=== PATIENT | male | born 1960 | race Caucasian/White ===

== ENCOUNTER 2020-01-31 14:45 | Outpatient (REF) | payer OTHER, SELFPAY ==
--- NOTE | 2020-01-31 14:51 | MR_ITS ---
EXAMINATION: MR CERVICAL SPINE WITHOUT CONTRAST CLINICAL INFORMATION: Cervical radiculopathy. Left upper and mid pain, numbness, and weakness. COMPARISON: Cervical spine radiographs 12/28/2019. TECHNIQUE: MRI of the cervical spine was obtained using routine sequences without contrast. FINDINGS: Alignment is normal. Vertebral heights are preserved. No acute bone marrow signal changes. There is slight loss of intervertebral disc height and T2 signal intensity at multiple levels related to disc degeneration. The cervicomedullary ejection is normal. Limited visualization of the intracranial compartment reveals no abnormal finding. Occipital condyles and lateral C1 masses are intact. There is degenerative arthrosis of the atlantodental joint. C1-C2 facets are unremarkable. At C2-C3 the annular contour is normal. No canal stenosis. No neuroforaminal encroachment. At C3-C4 there is a diffusely bulging disc causing flattening of the ventral thecal sac and buckling of ligamenta flava causing dorsolateral indentation of the thecal sac. Moderate canal stenosis. Uncovertebral joint spurring and facet degenerative change causes moderate bilateral neuroforaminal encroachment. At C4-C5 there is a diffusely bulging disc causing flattening of the ventral thecal sac and buckling of the ligamenta flava causing dorsolateral indentation of the thecal sac. Severe canal stenosis with compression of the cord. Uncovertebral joint spurring and facet degenerative change causes severe left and moderate right neuroforaminal encroachment. At C5-C6 there is a left central disc osteophyte complex superimposed upon a diffusely bulging disc causing indentation of the thecal sac. There is buckling of the ligamenta flava causing dorsolateral indentation of the thecal sac. Severe canal stenosis with asymmetric compression along the left lateral aspect of the cervical cord. Uncovertebral joint spurring and facet degenerative change causes severe left and moderate right neuroforaminal encroachment. At C6-C7 there is a left central disc osteophyte complexes cause indentation of the thecal sac and asymmetric AP flattening along the left lateral aspect of the cervical cord. Moderate canal stenosis. Uncovertebral joint spurring and facet degenerative change causes moderate left and mild right neuroforaminal encroachment. At C7-T1 there is a slightly bulging disc. No canal stenosis. Bilateral facet degenerative change. No substantial neuroforaminal encroachment. Visualized soft tissues of the neck are normal. IMPRESSION: There is advanced multilevel degenerative spondylosis of the cervical spine. Severe canal stenosis with compression of the cervical spinal cord at the levels of C4-C5 and C5-C6. There is also moderate canal stenosis at C3-C4 and C6-C7. There is asymmetric AP flattening of the left lateral aspect of the cervical spinal cord at the level of C6-C7 due to a prominent disc osteophyte complex. There are varying degrees of neuroforaminal encroachment related to uncovertebral joint spurring and facet degenerative change as described above.
== END 2020-01-31 14:46 | disposition home or self-care (01) ==
LOC: HO.MRI 14:45
PROVIDERS: PCP Nurse Practitioner Family; Visit Provider Hospitalist
DX: M54.12 Radiculopathy, cervical region (principal)
CPT/HCPCS: 72141

== ENCOUNTER 2020-04-08 14:00 | Outpatient (REF) | payer OTHER, SELFPAY ==
--- NOTE | 2020-04-09 09:44 | MHC.AU.P13 ---
Adult Audiological Evaluation Date of Visit: 04/08/20 Reason for Appointment: Audiological evaluation due to decreased hearing. Mr. Finch reports increased difficulty hearing, especially in the presence of background noise, i.e. at family gatherings and restaurants. He also notes that his reports that he often doesn't hear and she has to repeat herself. Does patient feel they have a hearing loss?: Yes If Yes, Which Ear?: Both Ears When Was Hearing Difficulty First Noticed?: 1-2 years ago Has hearing been tested previously?: Yes Previous Hearing Test Results: Results not available to be reviewed today. Hearing Handicap Inventory: HHIE SCORE: 18 Based on HHIE score, patient has: Mild to moderate perceived hearing handicap Ear History: History of Ear Wax Buildup: Both Ears History of occupational noise exposure?: Yes: Occupational [employer] for 30 years Medical History: Medical History: High Blood Pressure, Measles Medical History (Other): Three back operations, appendectomy Allergies: Morphine Medication List: Lorazepam .5mg 2x daily PRN, Amlodipine besylate 5mg daily, Trazodone HCI 50 mg x2 at bedtime, Nabumetone 500mg 2x daily, Marijuana 1 candy per day at bedtime, Omeprazole 20 mg 2x daily, Gabapentin 100 mg x2 morning and x2 at night, Prednisone 10mg daily, Duloxetine HCI 60 mg daily, Cyclobenzaprine HCI 10 mg 3x daily, Atorvastatin calcium 10 mg daily, Namenda 5 mg 3x daily, Betamethasone dipropionate .5 mg daily, Guaifenesin AC 100 10mg/5mg every 4 hrs PRN, Triamcinolone Acetonide oil 0.1 daily Otoscopy: Right Ear: Unremarkable Left Ear: Unremarkable Tympanometry: Right Ear: Normal Middle Ear System (Type A) Left Ear: Normal Middle Ear System (Type A) Hearing Evaluation: Transducer(s) Used: Insert Earphones, Bone Conduction Method: Conventional Audiometry Stimuli Used: Pure Tones Right Ear: Description of Hearing: Normal hearing from 250-2000 Hz, sloping to a mild sensorineural hearing loss from 1374-7283 Hz and rising to normal hearing at 8000 Hz. Left Ear: Description of Hearing: Normal hearing from 250-2000 Hz, sloping to a mild sensorineural hearing loss from 0526-7783 Hz and rising to normal hearing from 9907-2145 Hz. Speech Recognition Threshold (SRT): Method Used: Monitored Live Voice Stimuli Used: Spondee Words Right Ear: 10 dBHL Left Ear: 10 dBHL Word Discrimination: Method: Recorded Lists Word Lists Used: NU-6 Right Ear: 100% at 50 dBHL Left Ear: 100% at 50 dBHL QuickSIN: 4 dB SNR Loss, mild SNR loss Presented binaurally at 70 dBHL Recommendations: Recommendations: Audiological re-evaluation if changes are noted. Amplification is not warranted at this time. Recommendations (Other): Recommend hearing re-evaluation in two years, or sooner if changes are noted. Discussed strategies for improved communication. Diagnosis: Primary Diagnosis: H90.3 Bilateral Sensorineural Hearing Loss Services Performed: Services Performed: Comprehensive Audiological Evaluation (CPT 57413) Tympanometry (CPT 79453) Unlisted Otorhinolaryngological Service or Procedure (CPT 38252) Signature: Provider: Anne Marie Meadows, CCC-A
== END 2020-04-08 14:01 | disposition home or self-care (01) ==
LOC: HO.SH 14:00
PROVIDERS: Visit Provider Nurse Practitioner Family
DX: H90.3 Sensorineural hearing loss, bilateral (principal)
CPT/HCPCS: 92557; 92567; 92700

== ENCOUNTER 2020-04-22 12:00 | Outpatient (RCR) | payer OTHER, SELFPAY ==
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
--- NOTE | 2020-04-01 08:13 | MHC.PT.DC ---
[facility] [place] Office [place] Office [place] Office [address] [phone] F: [phone] F: [phone] F: [phone] F: [phone] Physical Therapy Discharge Report Diagnosis: Spinal stenosis, cervical region Date of Surgery: NA Date of Evaluation: 02/15/20 Date of Discharge: 04/01/20 Treatments to Date: 11 Cancellations to Date: 0 No Shows to Date: 0 Discharge Status: Patient Elected to Stop Discharge Summary: 03/28/20- Pt arrived stating he is feeling good today. His pain was down to 4/10 and it was around shoulder and neck region. [place] exercises was withheld today. Cervical mech traction was done today. Post traction he had no pain. Gentle scap strengthening exercises were attempted today. Pt's pain levels over shoulder blade was fluctuating between no pain to 7/10 pain. Pt's shoulder blade appears to be secondary to active trigger point over levator scap. STM was therefore done and he was demonstrated self release technique. All exercises were done within the limits of pain. Attempt US, STM, strengthening first and then mech traction in next session. No adverse response noted to any exercise. Electronically signed by: Yoly Laboy PT DPT Please sign and return to therapist. Thank you for your referral.
--- NOTE | 2020-04-29 16:26 | MHC.PT.DC ---
[facility] [place] Office [place] Office [place] Office [address] Filippo Scherer [address] [phone] F: [phone] F: [phone] F: [phone] F: [phone] Physical Therapy Discharge Report Diagnosis: Spinal stenosis, cervical region Date of Surgery: NA Date of Evaluation: 02/15/20 Date of Discharge: 04/29/20 Treatments to Date: 17 Cancellations to Date: 0 No Shows to Date: 0 Discharge Status: Improved Function Discharge Summary: Pt had about 70% improvement in his symptoms. He continued to have occasional pain along the medial border of scapula however his pain was inconsistent in nature. Several modalities, exercises and STM attempted but pt had no change in symptoms. Pt had plateaued with therapy. Pt therefore d/c from therapy and was advised to attempt accupuncture for the same. Electronically signed by: Goldie Chowdhury DPT Please sign and return to therapist. Thank you for your referral.
== END 2020-04-29 16:30 | disposition other institution (70) ==
LOC: HO.PT 12:00
PROVIDERS: Visit Provider Nurse Practitioner Family
DX: M48.02 Spinal stenosis, cervical region (principal)
CPT/HCPCS: 97012; 97035; 97110; 97112; 97140; 97161

== ENCOUNTER 2020-07-04 09:04 | Outpatient (REF) | payer OTHER, SELFPAY ==
[2020-07-04 09:36] LABS: MANUAL DIFF FLAG NO
[2020-07-04 10:04] LABS: Basophils Absolute Auto 0.1 X10*3/uL (0.0-0.2); Basophils Percent Auto 1.1 % (0-2); Eosinophils Absolute Auto 0.1 X10*3/uL (0.0-0.4); Eosinophils Percent Auto 2.3 % (0-4); Hematocrit 44.2 % (42-52); Imm Gran Abs Auto 0.01 X10*3/uL (0.00-0.03); Imm Gran Pct Auto 0.2 % (0.0-0.4); Lymphocytes Absolute Auto 1.5 X10*3/uL (1.2-4.9); Lymphocytes Percent Auto 31.8 % (20-40); Mean Corpuscular HGB Conc 33.9 g/dl (31.0-36.0); Mean Corpuscular Hemoglobin 29.4 pg (27.0-33.0); Mean Corpuscular Volume 86.5 fL (80-98); Mean Platelet Volume 8.8 fL (9.4-12.4); Monocytes Absolute Auto 0.5 X10*3/uL (0.1-1.2); Monocytes Percent Auto 9.8 % (2-11); Neutrophils Absolute Auto 2.6 X10*3/uL (2.0-8.3); Neutrophils Percent Auto 54.8 % (45-73); Platelet Count 185 X10*3/uL (160-400); Red Blood Count 5.11 X10*6/uL (4.60-5.80); Red Cell Distribution Width 12.1 % (11.0-16.0); White Blood Count 4.7 X10*3/uL (4.8-10.8)
[2020-07-04 11:15] LABS: Folate 9.6 ng/mL (> or = 4.0); Vitamin B12 368 pg/mL (200-900)
[2020-07-04 11:32] LABS: Prostate Specific Antigen Scr 1.58 ng/mL (<0.05-4.0); TSH reflex Free T4 1.63 uIU/mL (0.32-4.0); Vitamin D 25-OH Total 28.3 ng/mL (>30)
[2020-07-04 11:39] LABS: Alanine Aminotransferase 25 U/L (0-40); Albumin Level 4.4 g/dL (3.5-5.0); Alkaline Phosphatase 77 U/L (39-117); Anion Gap 12 (12-20); Aspartate Amino Transferase 27 U/L (5-37); Bilirubin Total 0.8 mg/dL (0.0-1.0); Blood Urea Nitrogen 15 mg/dL (9-16); Calcium 9.1 mg/dL (8.4-10.2); Carbon Dioxide 28 mmol/L (22-29); Chloride 105 mmol/L (96-108); Estimated Glomerular Filt Rate > 60; Glucose Random 104 mg/dL (60-115); Potassium 4.5 mmol/L (3.3-5.1); Sodium 140 mmol/L (135-145)
[2020-07-05 05:32] LABS: Follicle Stimulating Hormone 7.4 mIU/mL (1.6-8.0); Lutenizing Hormone 2.5 mIU/mL (1.6-15.2)
[2020-07-12 10:57] LABS: Testosterone, Free 59.6 pg/mL (35.0-155.0); Testosterone, Total 596 ng/dL (250-1100)
== END 2020-07-04 09:05 | disposition home or self-care (01) ==
LOC: HO.LAB 09:04
PROVIDERS: PCP Nurse Practitioner Family; Visit Provider Nurse Practitioner Family
DX: R53.83 Other fatigue (principal); Z12.5 Encounter for screening for malignant neoplasm of prostate
CPT/HCPCS: 36415; 80053; 82306; 82607; 82746; 83001; 83002; 84153; 84402; 84403; 84443; 85025

== ENCOUNTER 2020-07-04 13:53 | Outpatient (REF) | payer OTHER, SELFPAY ==
--- NOTE | ~2020-07-04 | US_ITS ---
EXAMINATION: US SCROTUM CLINICAL INFORMATION: Pain left testicle. Left testicle enlarged. COMPARISON: None TECHNIQUE: A sonogram of the scrotum was performed assessing jernigan-scale appearance and color Doppler flow. Spectral Doppler analysis of the arterial and venous flow were performed in the testes bilaterally. FINDINGS: RIGHT: Right testicle measures 5.4 x 2.8 x 3.0 cm, volume 23.7 mL. No focal testicular parenchymal lesions are visualized. Spectral Doppler analysis of the arterial and venous flow is normal in the right testis. Right epididymal head is normal in size with small anechoic cyst measuring 0.3 x 0.3 x 0.3 cm. There is a complex mass in the epidural head measuring 0.4 x 0.6 x 0.6 cm, question spermatocele. There is a small right hydrocele. No varicocele is seen. Right epididymal Doppler flow is normal. LEFT: Left testicle measures 6.9 x 2.6 x 2.9 cm, volume 27.2 mL. No focal testicular parenchymal lesions are visualized. Spectral Doppler analysis of the arterial and venous flow is normal in the left testis. Incidentally noted is a small left appendix testis measuring 0.2 x 0.5 x 0.5 cm. Left epididymal head is normal in size. There is a large left hydrocele compressing the left testis as well as right scrotum. No varicocele is seen. Left epididymal Doppler flow is not visualized secondary to large hydrocele. US/US scrotum IMPRESSION: Large left and small right hydrocele. Also visualized is a right epididymal cyst with normal flow. Both testes are normal size with normal flow. Incidental finding of a left appendix testis measuring 0.5 cm. Cystic and solid lesion of the right epididymis most likely a spermatocele.
== END 2020-07-04 13:54 | disposition home or self-care (01) ==
LOC: HO.HMGCX 13:53
PROVIDERS: Visit Provider Nurse Practitioner Family
DX: N50.812 Left testicular pain (principal)
CPT/HCPCS: 76870

== ENCOUNTER → 2020-07-16 09:16 | Outpatient (BNVA) | payer OTHER, SELFPAY | PROVIDERS: PCP Nurse Practitioner Family; Visit Provider Nurse Practitioner ==

== ENCOUNTER → 2020-08-01 09:27 | Outpatient (BNVA) | payer OTHER, SELFPAY | PROVIDERS: PCP Nurse Practitioner Family; Visit Provider Urology ==

== ENCOUNTER 2020-09-02 05:59 | Day surgery (SDC) | payer OTHER, SELFPAY ==
[2020-08-27 10:29] VITALS: BMI 31.3
--- NOTE | 2020-08-29 11:55 | HO.ANESPROP2 ---
Documented by User: Thi Medrano 08/29/20 11:56 HPI - Anesthesia Eval Consult details Narrative: 60yo M for Left Hydrocele Repair PMFSH Active Problems Active Problems: All Active Problems (Updated 08/27/20 @ 10:19 by Mariposa Bermudez) Eczema (Acute) Left testicular pain (Acute) Fatigue (Acute) Screening PSA (prostate specific antigen) (Acute) Irritable bowel syndrome with diarrhea (Acute) Left hydrocele (Acute) Cervical stenosis of spinal canal (Acute) Past Medical History Medical History Cervical stenosis of spinal canal Elevated cholesterol GERD (gastroesophageal reflux disease) HTN (hypertension) Pain of cervicothoracic region of spine Family History Family History Father Anxiety Depression Mother Stroke Asthma Brother Stroke Brother Liver disease Daughter Diabetes mellitus Daughter Diabetes mellitus Son Asthma Surgical History Surgical History History of colonoscopy History of discectomy History of lumbar fusion Hx of appendectomy Social History Social History Household Members: Spouse and Children Alcohol intake: never Smoking Status: Never smoker Advance Directives Information Provided: No Meds Allergies Allergy/AdvReac Type Severity Reaction Status Date / Time levofloxacin [From LEVAQUIN] Allergy Intermediate cramps Verified 09/02/20 06:10 morphine [MORPHINE] Allergy Mild agitation/h Verified 09/02/20 06:10 allucinatio nichelle Home Medications Medication Instructions Recorded Confirmed Last Taken Type amlodipine 5 mg tablet 5 mg PO DAILY 02/05/20 08/27/20 Unknown History atorvastatin 10 mg tablet 10 mg PO DAILY 02/05/20 08/27/20 Unknown History duloxetine 60 mg capsule,delayed 60 mg PO DAILY 02/05/20 08/27/20 Unknown History release gabapentin 300 mg capsule 300 mg PO TID 02/05/20 08/27/20 Unknown History nabumetone 500 mg tablet 500 mg PO BID 02/05/20 08/27/20 Unknown History Exam Exam Date and Time: August 29, 2020 1155 Height,Weight and Vital Signs: Height 6 ft 2 in Weight 110.677 kg Pertinent Lab Results Pertinent Lab Results: Laboratory Tests 07/04/20 07/04/20 09:15 09:15 WBC 4.7 L Hgb 15.0 Hct 44.2 Plt Count 185 Sodium 140 Potassium 4.5 Chloride 105 Carbon Dioxide 28 BUN 15 Creatinine 1.18 Assessment and Plan Assessment Anesthesia Assessment: Chart Reviewed Documented by User: Darline Mcgregor 09/02/20 07:22 ON LICENSE OF [facility] Past Medical History Medical History Cervical stenosis of spinal canal Elevated cholesterol GERD (gastroesophageal reflux disease) HTN (hypertension) Pain of cervicothoracic region of spine Family History Family History Father Anxiety Depression Mother Stroke Asthma Brother Stroke Brother Liver disease Daughter Diabetes mellitus Daughter Diabetes mellitus Son Asthma Surgical History Surgical History History of colonoscopy History of discectomy History of lumbar fusion Hx of appendectomy Social History Social History Household Members: Spouse and Children Alcohol intake: never Smoking Status: Never smoker Advance Directives Information Provided: No Meds Allergies Allergy/AdvReac Type Severity Reaction Status Date / Time levofloxacin [From LEVAQUIN] Allergy Intermediate cramps Verified 09/02/20 06:10 morphine [MORPHINE] Allergy Mild agitation/h Verified 09/02/20 06:10 allucinatio ns Home Medications Medication Instructions Recorded Confirmed Last Taken Type amlodipine 5 mg tablet 5 mg PO DAILY 02/05/20 08/27/20 Unknown History atorvastatin 10 mg tablet 10 mg PO DAILY 02/05/20 08/27/20 Unknown History duloxetine 60 mg capsule,delayed 60 mg PO DAILY 02/05/20 08/27/20 Unknown History release gabapentin 300 mg capsule 300 mg PO TID 02/05/20 08/27/20 Unknown History nabumetone 500 mg tablet 500 mg PO BID 02/05/20 08/27/20 Unknown History Exam Airway Mallampati Class: II TM Dist: >3cm Neck ROM: Full Assessment and Plan Assessment Anesthesia Assessment: Anesthesia Plan Discussed and Chart Reviewed Final Anesthetic Review NPO: Yes ASA Class: II Final Preanesthetic Review: No Changes in Pt Med Stat, Meds/Allgs Chart Reviewed, Consent Obtained/Reviewed and Anes Risks/Benef Reviewed Patient Risk: Low Procedure Risk: Low Assessment/Block/Sedation in SS: Assess/Block/Sedation-SS Anesthetic Plan Anesthetic Plan: GA Disposition: Standard PACU
[2020-09-02] VITALS (9 sets, daily range): BP systolic 100–129; BP diastolic 54–80; PULSE 64–85; RESP 16–18; TEMP 35.6–36.3; O2SAT 95–98
[2020-09-02] MEDS: Lactated Ringers 1,000 ML 100 ML IVCONT (06:34)
--- NOTE | 2020-09-02 07:08 | MHC.SHP ---
Pre-Procedural Eval Section A The patient is an INPATIENT: No Changes since office visit: No Cold of Flu in the past 2 weeks, No New Medical Problems, No Changes in Medication and No Patient answered all questions The History & Physical has been completed within 30 days and I have reviewed it.: Yes Section B Chief Complaint: hydrocele Allergies: Allergies Allergy/AdvReac Type Severity Reaction Status Date / Time levofloxacin [From LEVAQUIN] Allergy Intermediate cramps Verified 09/02/20 06:10 morphine [MORPHINE] Allergy Mild agitation/h Verified 09/02/20 06:10 allucinatio ns Plan Diagnosis/Plan: Unchanged (left hydrocelectomy) I have reviewed the history and physical and performed a pertinent physical examination on my patient. No changes have occurred unless specified.
[2020-09-02] MEDS: fentaNYL citrate/PF 100 MCG/2 ML VIAL 50 MCG IVPUSH ×4 (08:35→09:00)
[2020-09-02] MEDS: oxyCODONE HCl Immed Release 5 MG TABLET PO (08:43)
--- NOTE | 2020-09-02 09:18 | P.OP_ITS ---
Operative Note Operative Note Date of Service: 09/02/20 Narrative: PreOperative Diagnosis: Left hydrocele large Post Operative Diagnosis: Left hydrocele large Procedure: Left hydrocelectomy Surgeon: Dr Benedict Hardy Anesthesia: General Indications for procedure: Large left hydrocele. Interfering with activities of daily living. Understands that primary risk for hydrocelectomy as potential loss of testicle. there is secondary risks for infection or bleeding. Procedure: After informed consent was verified the patient was brought to the operating room and placed in a supine position. anesthesia was administered per protocol. The patient was prepped and draped in sterile fashion. Safety pause time-out was performed. Antibiotics have been given. Local anesthetic was placed subcutaneous in the midline raphe for . Procedure pain management. A 2 in incision was made. This was taken down through the skin and the cremasteric muscles toward the hydrocele sac. The hydrocele sac was in counted in using a wet sponge this space was developed in the avascular plane. The testicle was slowly delivered and the tissue pushed back toward the inguinal area revealing a large thickened hydrocele sac . The sac was entered approximately 250 cc of fluid was removed. The sac was opened in a longitudinal fashion. With the open sac we could then estimate hemorrhage tissue needed to be removed from the thickened hydrocele tissue. Using a LigaSure device tissue was removed in an avascular fashion. This will be sent for pathology. A bottleneck procedure was then performed wrapping the sac around the cord. The edges were sewn to each other using a running locking 3-0 Vicryl. A [place] drain was placed in the dependent portion of the scrotum. The testicle was then placed back in the scrotal space. Two layers of running 3-0 Vicryl were used for closure of the redundant cremasteric tissues. Skin was closed with interrupted 3-0 chromic. The [place] drain was attached to the overlying dressing using a 2-0 nylon. He tolerated the procedure well and was transferred from the operating room in stable condition to the recovery area. Can review in 1 month Pathology: Hydrocele sac Drains: Gia drain
== END 2020-09-02 10:00 | disposition home or self-care (01) ==
PROVIDERS: PCP Nurse Practitioner Family; Visit Provider Urology
PROC: (CPT 55060; principal; 2020-09-02 07:30)
DX: N43.3 Hydrocele, unspecified (principal); I10 Essential (primary) hypertension; Z79.899 Other long term (current) drug therapy; Z88.8 Allergy status to other drugs, medicaments and biological substances
CPT/HCPCS: 55040; 88302; J0131; J0690; J1100; J2250; J2405; J3010

== ENCOUNTER → 2020-10-03 13:35 | Outpatient (BNVA) | payer OTHER, SELFPAY | PROVIDERS: PCP Nurse Practitioner Family; Visit Provider Urology ==

== ENCOUNTER → 2021-01-13 10:19 | Outpatient (BNVA) | payer OTHER, SELFPAY | PROVIDERS: Visit Provider Nurse Practitioner ==

== ENCOUNTER → 2021-04-03 11:10 | Outpatient (BNVA) | payer OTHER, SELFPAY | PROVIDERS: PCP Nurse Practitioner Family; Visit Provider Urology ==

== ENCOUNTER → 2021-08-08 15:21 | Outpatient (BNVA) | payer OTHER, SELFPAY | PROVIDERS: PCP Nurse Practitioner Family; Referring Provider Nurse Practitioner Family; Visit Provider Nurse Practitioner | DX: Z13.89 Encounter for screening for other disorder (principal) ==

== ENCOUNTER 2021-10-07 10:07 | Outpatient (REF) | payer OTHER, SELFPAY ==
[2021-10-07 10:21] LABS: MANUAL DIFF FLAG NO
[2021-10-07 11:45] LABS: Appearance Urine CLEAR; Color Urine YELLOW; Glucose Urine UA NEG (NEG); Leukocyte Esterase Urine NEG (NEG); Nitrite Urine NEG (NEG); PH 5.5 (5.0-8.0); Specific Gravity - Urine 1.025 (1.005-1.025); Urine Blood NEG (NEG); Urine Ketones 5 MG/DL (NEG); Urine Protein NEG (NEG-TRACE)
[2021-10-07 11:51] LABS: Basophils Percent Auto 0.9 % (0-2); Eosinophils Absolute Auto 0.1 X10*3/uL (0.0-0.4); Eosinophils Percent Auto 2.7 % (0-4); Hematocrit 42.8 % (42.0-52.0); Hemoglobin 14.6 g/dl (14.0-18.0); Imm Gran Abs Auto 0.01 X10*3/uL (0.00-0.03); Imm Gran Pct Auto 0.2 % (0.0-0.4); Lymphocytes Absolute Auto 1.7 X10*3/uL (1.2-4.9); Lymphocytes Percent Auto 38.1 % (20-40); Mean Corpuscular HGB Conc 34.1 g/dl (31.0-36.0); Mean Corpuscular Hemoglobin 29.9 pg (27.0-33.0); Mean Corpuscular Volume 87.7 fL (80.0-98.0); Monocytes Absolute Auto 0.4 X10*3/uL (0.1-1.2); Monocytes Percent Auto 9.3 % (2-11); Neutrophils Absolute Auto 2.2 x10*3/uL (2.0-8.3); Neutrophils Percent Auto 48.8 % (45-73); Platelet Count 175 X10*3/uL (160-400); Red Blood Count 4.88 X10*6/uL (4.60-5.80); Red Cell Distribution Width 12.4 % (11.0-16.0); White Blood Count 4.4 X10*3/uL (4.8-10.8)
[2021-10-07 12:43] LABS: TSH reflex Free T4 1.78 uIU/mL (0.32-4.0)
[2021-10-07 13:36] LABS: Alanine Aminotransferase 30 U/L (0-40); Albumin Level 4.2 g/dL (3.5-5.0); Alkaline Phosphatase 76 U/L (39-117); Anion Gap 12 (12-20); Aspartate Amino Transferase 28 U/L (5-37); Bilirubin Total 0.3 mg/dL (0.0-1.0); Blood Urea Nitrogen 15 mg/dL (9-16); Calcium 8.7 mg/dL (8.4-10.2); Carbon Dioxide 22 mmol/L (22-29); Chloride 109 mmol/L (96-108); Cholesterol 184 mg/dL; Estimated Glomerular Filt Rate > 60; Glucose Fasting 100 mg/dL (60-99); HDL Cholesterol 34 mg/dL; LDL Cholesterol Calculated 115 mg/dl; Potassium 4.3 mmol/L (3.3-5.1); Sodium 139 mmol/L (135-145); Total Protein 6.8 g/dL (6.5-8.0); Triglycerides 178 mg/dL
== END 2021-10-07 10:08 | disposition home or self-care (01) ==
LOC: HO.LAB 10:07
PROVIDERS: PCP Nurse Practitioner Family; Visit Provider Nurse Practitioner Family
DX: Z00.00 Encounter for general adult medical examination without abnormal findings (principal); Z12.5 Encounter for screening for malignant neoplasm of prostate
CPT/HCPCS: 36415; 80053; 80061; 81003; 84153; 84443; 85025

== ENCOUNTER 2022-01-21 11:32 | Outpatient (REF) | payer OTHER, SELFPAY ==
[2022-01-21 14:16] LABS: MANUAL DIFF FLAG NO
[2022-01-21 14:21] LABS: Appearance Urine Turbid; Color Urine Yellow; Glucose Urine UA Negative (Negative); Leukocyte Esterase Urine Negative (Negative); Nitrite Urine Negative (Negative); PH 5.5 (5.0-9.0); Urine Blood Negative (Negative); Urine Ketones Trace mg/dL (Negative); Urine Protein Negative (Neg-Trace)
[2022-01-21 14:25] LABS: Basophils Absolute Auto 0.1 X10*3/uL (0.0-0.2); Basophils Percent Auto 1.5 % (0-2); Eosinophils Absolute Auto 0.1 X10*3/uL (0.0-0.4); Hematocrit 46.5 % (42.0-52.0); Hemoglobin 15.6 g/dl (14.0-18.0); Imm Gran Abs Auto 0.02 X10*3/uL (0.00-0.03); Imm Gran Pct Auto 0.4 % (0.0-0.4); Lymphocytes Absolute Auto 1.9 X10*3/uL (1.2-4.9); Lymphocytes Percent Auto 35.2 % (20-40); Mean Corpuscular HGB Conc 33.5 g/dl (31.0-36.0); Mean Corpuscular Hemoglobin 29.8 pg (27.0-33.0); Mean Corpuscular Volume 88.9 fL (80.0-98.0); Mean Platelet Volume 9.1 fL (9.4-12.4); Monocytes Absolute Auto 0.6 X10*3/uL (0.1-1.2); Monocytes Percent Auto 11.4 % (2-11); Neutrophils Absolute Auto 2.7 x10*3/uL (2.0-8.3); Neutrophils Percent Auto 49.5 % (45-73); Platelet Count 215 X10*3/uL (160-400); Red Blood Count 5.23 X10*6/uL (4.60-5.80); Red Cell Distribution Width 12.5 % (11.0-16.0); White Blood Count 5.4 X10*3/uL (4.8-10.8)
[2022-01-21 14:47] LABS: Alanine Aminotransferase 41 U/L (0-40); Albumin Level 4.8 g/dL (3.5-5.0); Alkaline Phosphatase 74 U/L (39-117); Anion Gap 14 (12-20); Aspartate Amino Transferase 36 U/L (5-37); Bilirubin Total 0.5 mg/dL (0.0-1.0); Blood Urea Nitrogen 15 mg/dL (9-16); Calcium 9.9 mg/dL (8.4-10.2); Carbon Dioxide 26 mmol/L (22-29); Chloride 106 mmol/L (96-108); Cholesterol 203 mg/dL; Estimated Glomerular Filt Rate > 60; Glucose Fasting 94 mg/dL (60-99); HDL Cholesterol 43 mg/dL; Iron 80 mcg/dL (45-160); LDL Cholesterol Calculated 136 mg/dl; Percent Iron Saturation 21 % (15-50); Potassium 5.1 mmol/L (3.3-5.1); Sodium 141 mmol/L (135-145); Total Iron Binding Capacity 373 mcg/dL (228-428); Total Protein 7.5 g/dL (6.5-8.0); Triglycerides 121 mg/dL; Unsaturated Iron Binding 293 ug/dL
[2022-01-21 15:10] LABS: Ferritin 283 ng/mL (20-250); TSH reflex Free T4 1.58 uIU/mL (0.32-4.0)
[2022-01-21 15:21] LABS: Vitamin B12 493 pg/mL (200-900)
== END 2022-01-21 11:33 | disposition home or self-care (01) ==
LOC: HO.HMGCLDS 11:32
PROVIDERS: PCP Nurse Practitioner Family; Visit Provider Nurse Practitioner Family
DX: R53.83 Other fatigue (principal); U09.9 Post COVID-19 condition, unspecified; R74.8 Abnormal levels of other serum enzymes
CPT/HCPCS: 36415; 80053; 80061; 81003; 82607; 82728; 82746; 83540; 84443; 85025

== ENCOUNTER 2022-02-10 12:32 | Outpatient (REF) | payer OTHER, SELFPAY ==
[2022-02-10 18:38] LABS: Cholesterol 195 mg/dL; HDL Cholesterol 38 mg/dL; LDL Cholesterol Calculated 123 mg/dl; Triglycerides 172 mg/dL
[2022-02-11 04:50] LABS: HBc Num1 0.09 S/CO (0.00-0.79); HBsAGNum1 0.21 S/CO (0.00-0.99); Hepatitis B Core Antibody Nonreactive (Nonreactive); Hepatitis B Surface Antigen Negative (Negative); ~HepC Num1 0.09 S/CO (0.00-0.79); ~Hepatitis B Surface Antibody NONREACTIVE (Nonreactive); ~Hepatitis C Antibody Nonreactive (Nonreactive)
[2022-02-11 05:25] LABS: Hepatitis A Antibody IgM 0.91 Index (0-0.79)
[2022-02-11 09:02] LABS: ~Hepatitis A Antibody IgM GRAYZONE (Nonreactive)
== END 2022-02-10 12:33 | disposition home or self-care (01) ==
LOC: HO.LAB 12:32
PROVIDERS: PCP Nurse Practitioner Family; Visit Provider Nurse Practitioner Family
DX: E78.5 Hyperlipidemia, unspecified (principal); R74.8 Abnormal levels of other serum enzymes
CPT/HCPCS: 36415; 80061; 86704; 86706; 86709; 86803; 87340

== ENCOUNTER 2022-02-25 12:47 | Outpatient (REF) | payer OTHER, SELFPAY ==
[2022-02-27 09:27] LABS: Hepatitis A Antibody IgG REACTIVE (Nonreactive); Hepatitis A Antibody IgM 1.08 Index (0-0.79); ~Hepatitis A Antibody IgG 11.84 S/CO (0.00-0.99); ~Hepatitis A Antibody IgM GRAYZONE (Nonreactive)
== END 2022-02-25 12:48 | disposition home or self-care (01) ==
LOC: HO.LAB 12:47
PROVIDERS: Absent Provider Nurse Practitioner Family; PCP Nurse Practitioner Family; Visit Provider Internal Medicine
DX: R76.8 Other specified abnormal immunological findings in serum (principal)
CPT/HCPCS: 36415; 86708; 86709

== ENCOUNTER 2022-03-04 12:45 | Outpatient (REF) | payer OTHER, SELFPAY ==
[2022-03-04 12:56] LABS: MANUAL DIFF FLAG NO
[2022-03-04 14:20] LABS: Basophils Absolute Auto 0.1 X10*3/uL (0.0-0.2); Basophils Percent Auto 1.2 % (0-2); Eosinophils Absolute Auto 0.2 X10*3/uL (0.0-0.4); Eosinophils Percent Auto 3.5 % (0-4); Hematocrit 46.8 % (42.0-52.0); Hemoglobin 15.8 g/dl (14.0-18.0); Imm Gran Abs Auto 0.02 X10*3/uL (0.00-0.03); Imm Gran Pct Auto 0.3 % (0.0-0.4); Lymphocytes Absolute Auto 2.4 X10*3/uL (1.2-4.9); Lymphocytes Percent Auto 40.5 % (20-40); Mean Corpuscular HGB Conc 33.8 g/dl (31.0-36.0); Mean Corpuscular Hemoglobin 29.6 pg (27.0-33.0); Mean Corpuscular Volume 87.8 fL (80.0-98.0); Monocytes Absolute Auto 0.6 X10*3/uL (0.1-1.2); Monocytes Percent Auto 10.5 % (2-11); Neutrophils Absolute Auto 2.7 x10*3/uL (2.0-8.3); Platelet Count 191 X10*3/uL (160-400); Red Blood Count 5.33 X10*6/uL (4.60-5.80); Red Cell Distribution Width 12.2 % (11.0-16.0)
[2022-03-04 15:01] LABS: Alanine Aminotransferase 40 U/L (0-40); Albumin Level 4.5 g/dL (3.5-5.0); Alkaline Phosphatase 73 U/L (39-117); Aspartate Amino Transferase 34 U/L (5-37); Bilirubin Direct 0.2 mg/dL (0.0-0.5); Bilirubin Total 0.5 mg/dL (0.0-1.0); Total Protein 7.2 g/dL (6.5-8.0)
== END 2022-03-04 12:46 | disposition home or self-care (01) ==
LOC: HO.LAB 12:45
PROVIDERS: PCP Nurse Practitioner Family; Visit Provider Nurse Practitioner Family
DX: R76.8 Other specified abnormal immunological findings in serum (principal); R74.8 Abnormal levels of other serum enzymes
CPT/HCPCS: 36415; 80076; 85025

== ENCOUNTER 2022-03-09 10:49 | Outpatient (REF) | payer OTHER, SELFPAY ==
--- NOTE | ~2022-03-09 | US_ITS ---
EXAMINATION: US ABDOMEN COMPLETE CLINICAL INFORMATION: Abnormal levels of other serum enzymes. COMPARISON: CT abdomen and pelvis without contrast 01/22/2016. TECHNIQUE: Real-time imaging of the abdominal viscera. Technically limited study secondary to bowel gas. FINDINGS: PANCREAS: Normal. ABDOMINAL AORTA: The proximal, mid, and distal segments are normal in caliber. INFERIOR VENA CAVA: Visualized portions are normal. LIVER: The liver is normal in size. The liver contour is normal. Liver echotexture is increased. No focal hepatic lesion. There is no intrahepatic biliary duct dilatation seen. GALLBLADDER: Gallbladder is normal in size. There are small echogenic densities in the gallbladder questionable for small stones versus gallbladder wall polyps. Similar these move favoring stones. Largest measures 5 mm. COMMON BILE DUCT: Not well visualized. Normal in caliber measuring 0.5 cm in diameter. RIGHT KIDNEY: Peripelvic upper pole cyst measuring 2.3 x 1.5 x 2 cm No hydronephrosis or renal calculi. The kidney measures 12.4 cm in maximum dimension. LEFT KIDNEY: Peripelvic lower pole cyst measuring 1.8 x 1.6 x 2 cm No hydronephrosis or renal calculi. The kidney measures 13.6 cm in maximum dimension. SPLEEN: Normal. The spleen measures 12.3 cm in maximum dimension. FREE FLUID: None. US/US abdomen complete IMPRESSION: Limited exam. Echogenic liver. Differential would include fatty infiltration and hepatocellular disease. Question small gallstones versus gallbladder wall polyps. Bilateral renal cysts.
== END 2022-03-09 10:50 | disposition home or self-care (01) ==
LOC: HO.US 10:49
PROVIDERS: Visit Provider Nurse Practitioner Family
DX: R74.8 Abnormal levels of other serum enzymes (principal)
CPT/HCPCS: 76700

== ENCOUNTER 2022-03-24 09:24 | Outpatient (REF) | payer OTHER, SELFPAY | END 2022-03-24 09:25 | disposition home or self-care (01) | LOC: HO.LAB 09:24 | PROVIDERS: PCP Nurse Practitioner Family; Visit Provider Urology | DX: Z12.5 Encounter for screening for malignant neoplasm of prostate (principal); N40.1 Benign prostatic hyperplasia with lower urinary tract symptoms; N13.8 Other obstructive and reflux uropathy | CPT/HCPCS: 36415; 84153 ==

== ENCOUNTER 2022-04-03 11:40 | Outpatient (AMB) | payer OTHER, SELFPAY ==
--- NOTE | 2022-04-03 11:43 | A.OFFVIS_ITS ---
Intake Intake Visit Reasons: 6 Month PSA(set) Intake Note: Patient is present for psa follow up Urology Medication:none Blood Thinners: None Allergies levofloxacin [From LEVAQUIN] Allergy (Intermediate, Verified 05/18/23 09:58) cramps morphine [MORPHINE] Allergy (Mild, Verified 05/18/23 09:58) agitation/hallucinations HPI HPI Comments History of Present Illness Details Rafa LINDSEY is a very pleasant male. They are a patient of Dr Sharp. They are seen in the office today for the following urologic conditions. 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 Elevated PSA/Abnormal BECKY: PSA remains low Current management is observation. Laboratory investigations include 06/06 1.6 06/07 2.3 08/06 1.3, 08/07 1.6, 04/09 2.3 Indiviudalized Prostate Cancer Risk Calculator < 5% high risk, Would like to continue with observation and understands and accepts the risks of a possible delay in diagnosis. Overall symptoms are mild. Associated conditions diabetes No dyslipidemia No dysuria No erectile dysfunction No hematuria No hypertension No prostatitis No renal insufficiency No urinary retention No urinary tract infections No Therapeutic plan will be continued surveillance. [facility] Medical History GERD (gastroesophageal reflux disease) Elevated cholesterol HTN (hypertension) Pain of cervicothoracic region of spine Cervical stenosis of spinal canal Surgical History Hx of appendectomy History of colonoscopy History of lumbar fusion History of discectomy Family History Father Anxiety Depression Substance use disorder Mother Stroke Asthma Brother Stroke Substance use disorder Brother Liver disease Substance use disorder Daughter Diabetes mellitus Daughter Diabetes mellitus Son Asthma Social History Household Members: Spouse and Children Housing: House Alcohol intake: never Patient Tobacco Use Status: Never used Tobacco e-Cigarette/Vaping Use: Never Used Second Hand Smoke Exposure: No service: No Current occupational status: retired Cognitive needs: No Hearing needs: No Vision needs: No Review of Systems Const Denies chills and Denies fever(s) Card Reports no additional complaints and Denies syncope Resp Denies cough GI Denies abdominal pain and Denies heartburn Reports as per HPI and Denies change in libido Neuro Denies syncope Psych Denies change in libido Endo Denies change in libido Physical Exam Const General: cooperative, healthy appearing, comfortable and no acute distress Orientation/consciousness: patient oriented x3 HEENT Face and sinus: Yes normal facial exam Mouth: moist mucous membranes Neck Neck: Yes normal visual inspection, Yes full ROM and Yes trachea midline Chest Chest palpation & inspection: normal inspection of the chest Resp Effort & Inspection: normal respiratory effort, able to speak in complete sentences and no respiratory distress GI Inspection: Yes normal to inspection Back/Spine/Pelvis Cervical Spine: normal cervical lordosis Thoracic/Lumbar Spine: thoracic and lumbar spine normal to inspection Skin General skin exam: no rashes or lesions noted Neuro General: patient oriented x3, gait normal, tone normal and moves all extremities Extrem General: Yes normal to inspection and Yes capillary refill normal Assessment & Plan Assessment & Plan (1) Increased prostate specific antigen (PSA) velocity: Code(s): R97.20 - Elevated prostate specific antigen [PSA] Plan Six-month follow-up Orders: Orders Prostate Specific Antigen 6 Months N32.0 - Bladder-neck obstruction Patient Instructions: Imaging studies, laboratory and physical exam results were discussed and reviewed in detail. No major barriers to patient understanding were identified. An opportunity to ask questions regarding the treatment plan was provided. All questions were answered. The patient expressed understanding and agreement with the above treatment plan. The patient is aware they should contact our office by phone for worsening of their current condition or the appearance of new urologic symptoms. Compliance is encouraged with any medications and followup testing that is ordered. It is a privilege to participate in the urologic care of your patient. If you have any questions or concerns regarding treatment for the above conditions, or other urologic issues, please do not hesitate to contact me. The office telephone contact is [phone]. This note is constructed using voice recognition software. While every effort has been made to ensure accuracy adult basic studies teacher errors may have been included. Yours sincerely, Dr Benedict Hardy MD, [facility] - Urology Providers of Expert, Compassionate Care for the Genitourinary System Coding Level of Care Code Est Pt Level 4 (39819) Diagnoses Increased prostate specific antigen (PSA) velocity R97.20
== END 2022-04-03 12:23 | disposition home or self-care (01) ==
LOC: HO.HUSH 11:40
PROVIDERS: PCP Nurse Practitioner Family; Visit Provider Urology
DX: R97.20 Elevated prostate specific antigen [PSA] (principal)
CPT/HCPCS: 99214; 99499

== ENCOUNTER 2022-06-03 10:26 | Outpatient (REF) | payer OTHER, SELFPAY ==
[2022-06-03 12:29] LABS: Alanine Aminotransferase 40 U/L (0-40); Albumin Level 4.4 g/dL (3.5-5.0); Alkaline Phosphatase 68 U/L (39-117); Anion Gap 14 (12-20); Aspartate Amino Transferase 32 U/L (5-37); Bilirubin Total 0.7 mg/dL (0.0-1.0); Blood Urea Nitrogen 15 mg/dL (9-16); Calcium 9.7 mg/dL (8.4-10.2); Carbon Dioxide 26 mmol/L (22-29); Chloride 107 mmol/L (96-108); Cholesterol 138 mg/dL; Estimated Glomerular Filt Rate > 60; Glucose Fasting 95 mg/dL (60-99); HDL Cholesterol 37 mg/dL; LDL Cholesterol Calculated 74 mg/dl; Potassium 4.7 mmol/L (3.3-5.1); Sodium 142 mmol/L (135-145); Triglycerides 137 mg/dL
== END 2022-06-03 10:27 | disposition home or self-care (01) ==
LOC: HO.LAB 10:26
PROVIDERS: PCP Nurse Practitioner Family; Visit Provider Nurse Practitioner Family
DX: E78.5 Hyperlipidemia, unspecified (principal)
CPT/HCPCS: 36415; 80053; 80061

== ENCOUNTER 2022-10-05 08:52 | Outpatient (REF) | payer OTHER, SELFPAY ==
[2022-10-05 09:06] LABS: MANUAL DIFF FLAG NO
[2022-10-05 09:37] LABS: Appearance Urine Clear; Color Urine Yellow; Glucose Urine UA Negative (Negative); Leukocyte Esterase Urine Trace (Negative); Nitrite Urine Negative (Negative); PH 5.5 (5.0-9.0); Specific Gravity - Urine 1.025 (1.005-1.025); UMIC TRIGGER UACC YES; Urine Blood Negative (Negative); Urine Ketones Trace mg/dL (Negative); Urine Protein Negative (Neg-Trace)
[2022-10-05 09:39] LABS: Basophils Absolute Auto 0.1 X10*3/uL (0.0-0.2); Basophils Percent Auto 1.1 % (0-2); Eosinophils Absolute Auto 0.2 X10*3/uL (0.0-0.4); Eosinophils Percent Auto 3.3 % (0-4); Hematocrit 43.3 % (42.0-52.0); Imm Gran Abs Auto 0.01 X10*3/uL (0.00-0.03); Imm Gran Pct Auto 0.2 % (0.0-0.4); Lymphocytes Absolute Auto 1.7 X10*3/uL (1.2-4.9); Lymphocytes Percent Auto 36.6 % (20-40); Mean Corpuscular HGB Conc 34.6 g/dl (31.0-36.0); Mean Corpuscular Hemoglobin 30.1 pg (27.0-33.0); Mean Corpuscular Volume 86.8 fL (80.0-98.0); Monocytes Absolute Auto 0.5 X10*3/uL (0.1-1.2); Neutrophils Absolute Auto 2.2 x10*3/uL (2.0-8.3); Neutrophils Percent Auto 47.8 % (45-73); Platelet Count 165 X10*3/uL (160-400); Red Blood Count 4.99 X10*6/uL (4.60-5.80); Red Cell Distribution Width 12.2 % (11.0-16.0); White Blood Count 4.5 X10*3/uL (4.8-10.8)
[2022-10-05 09:40] LABS: Bacteria Urine None Seen (None Seen); Hyaline Casts Urine 0-2 /LPF (0-2); RBC Urine 0-2 /HPF (0-2); Squamous Epithelial Cell Urine 0-2 /HPF (0-2); WBC Urine 0-5 /HPF (0-5)
[2022-10-05 10:20] LABS: Prostate Specific Antigen 1.81 ng/mL (<0.05-4.0)
[2022-10-05 10:21] LABS: Alanine Aminotransferase 33 U/L (0-40); Albumin Level 4.1 g/dL (3.5-5.0); Alkaline Phosphatase 67 U/L (39-117); Anion Gap 14 (12-20); Aspartate Amino Transferase 29 U/L (5-37); Bilirubin Total 0.5 mg/dL (0.0-1.0); Blood Urea Nitrogen 19 mg/dL (9-16); Calcium 9.6 mg/dL (8.4-10.2); Carbon Dioxide 23 mmol/L (22-29); Chloride 108 mmol/L (96-108); Cholesterol 125 mg/dL; Estimated Glomerular Filt Rate > 60; Glucose Fasting 100 mg/dL (60-99); HDL Cholesterol 36 mg/dL; LDL Cholesterol Calculated 72 mg/dl; Potassium 4.4 mmol/L (3.3-5.1); Sodium 141 mmol/L (135-145); Triglycerides 85 mg/dL
[2022-10-05 10:23] LABS: TSH reflex Free T4 2.04 uIU/mL (0.32-4.0)
== END 2022-10-05 08:53 | disposition home or self-care (01) ==
LOC: HO.LAB 08:52
PROVIDERS: PCP Nurse Practitioner Family; Visit Provider Urology
DX: R74.8 Abnormal levels of other serum enzymes (principal); E78.5 Hyperlipidemia, unspecified; N32.0 Bladder-neck obstruction; Z12.5 Encounter for screening for malignant neoplasm of prostate
CPT/HCPCS: 36415; 80053; 80061; 81001; 84153; 84443; 85025

== ENCOUNTER → 2022-10-13 13:44 | Outpatient (BNVA) | payer OTHER, SELFPAY | PROVIDERS: Visit Provider Urology ==

== ENCOUNTER 2023-03-26 08:02 | Outpatient (REF) | payer OTHER, SELFPAY ==
[2023-03-26 09:33] LABS: Prostate Specific Antigen 2.07 ng/mL (<0.05-4.0)
== END 2023-03-26 08:03 | disposition home or self-care (01) ==
LOC: HO.LAB 08:02
PROVIDERS: Visit Provider Urology
DX: Z12.5 Encounter for screening for malignant neoplasm of prostate (principal); N32.0 Bladder-neck obstruction
CPT/HCPCS: 36415; 84153

== ENCOUNTER 2023-03-31 10:23 | Outpatient (REF) | payer OTHER, SELFPAY ==
[2023-03-31 10:36] LABS: MANUAL DIFF FLAG NO
[2023-03-31 10:47] LABS: Basophils Absolute Auto 0.1 X10*3/uL (0.0-0.2); Basophils Percent Auto 1.3 % (0-2); Eosinophils Absolute Auto 0.1 X10*3/uL (0.0-0.4); Eosinophils Percent Auto 2.4 % (0-4); Hematocrit 45.1 % (42.0-52.0); Hemoglobin 15.2 g/dl (14.0-18.0); Imm Gran Abs Auto 0.01 X10*3/uL (0.00-0.03); Imm Gran Pct Auto 0.2 % (0.0-0.4); Lymphocytes Absolute Auto 1.6 X10*3/uL (1.2-4.9); Lymphocytes Percent Auto 33.6 % (20-40); Mean Corpuscular HGB Conc 33.7 g/dl (31.0-36.0); Mean Corpuscular Hemoglobin 30.4 pg (27.0-33.0); Mean Corpuscular Volume 90.2 fL (80.0-98.0); Mean Platelet Volume 8.9 fL (9.4-12.4); Monocytes Absolute Auto 0.5 X10*3/uL (0.1-1.2); Monocytes Percent Auto 9.6 % (2-11); Neutrophils Absolute Auto 2.5 x10*3/uL (2.0-8.3); Neutrophils Percent Auto 52.9 % (45-73); Platelet Count 163 X10*3/uL (160-400); Red Cell Distribution Width 12.1 % (11.0-16.0); White Blood Count 4.7 X10*3/uL (4.8-10.8)
[2023-03-31 11:05] LABS: Appearance Urine Clear; Color Urine Dark Yellow; Glucose Urine UA Negative (Negative); Leukocyte Esterase Urine Negative (Negative); Nitrite Urine Negative (Negative); PH 5.5 (5.0-9.0); Specific Gravity - Urine 1.025 (1.005-1.025); UMIC TRIGGER UACC YES; Urine Blood Negative (Negative); Urine Ketones Trace mg/dL (Negative); Urine Protein 30 (1+) mg/dL (Neg-Trace)
[2023-03-31 11:14] LABS: Bacteria Urine None Seen (None Seen); Hyaline Casts Urine 0-2 /LPF (0-2); RBC Urine 0-2 /HPF (0-2); Squamous Epithelial Cell Urine 0-2 /HPF (0-2); WBC Urine 0-5 /HPF (0-5)
[2023-03-31 11:25] LABS: Alanine Aminotransferase 29 U/L (0-40); Albumin Level 4.3 g/dL (3.5-5.0); Alkaline Phosphatase 63 U/L (39-117); Anion Gap 12 (12-20); Aspartate Amino Transferase 28 U/L (5-37); Bilirubin Total 0.5 mg/dL (0.0-1.0); Blood Urea Nitrogen 18 mg/dL (9-16); Calcium 9.7 mg/dL (8.4-10.2); Carbon Dioxide 27 mmol/L (22-29); Chloride 107 mmol/L (96-108); Cholesterol 125 mg/dL (<200); Estimated Glomerular Filt Rate > 60; Glucose Fasting 102 mg/dL (60-99); HDL Cholesterol 37 mg/dL (>40); LDL Cholesterol Calculated 69 mg/dL (<100); Sodium 141 mmol/L (135-145); Total Protein 7.2 g/dL (6.5-8.0); Triglycerides 99 mg/dL (<150)
[2023-03-31 11:39] LABS: TSH reflex Free T4 1.56 uIU/mL (0.32-4.0)
[2023-03-31 12:39] LABS: Prostate Specific Antigen Scr 2.53 ng/mL (<0.05-4.0)
== END 2023-03-31 10:24 | disposition home or self-care (01) ==
LOC: HO.LAB 10:23
PROVIDERS: PCP Nurse Practitioner Family; Visit Provider Nurse Practitioner Family
DX: Z00.00 Encounter for general adult medical examination without abnormal findings (principal); Z12.5 Encounter for screening for malignant neoplasm of prostate
CPT/HCPCS: 36415; 80053; 80061; 81001; 81003; 84153; 84443; 85025

== ENCOUNTER 2023-04-15 11:24 | Outpatient (AMB) | payer OTHER, SELFPAY ==
--- NOTE | 2023-04-15 11:28 | MHC.PC.OV ---
Vital Signs 04/15/23 11:32 Height 6 ft 2 in Weight 234 lb BMI 30.0 BP 122/76 Blood Pressure Location Rt brachial Position Sitting Pulse 86 Pulse Source Pulse Oximeter Pulse Oximetry (%) 98 Oxygen Delivery Method Room Air Intake Visit Reasons: Annual PE Intake Note: Patient here for physical exam. pt states hes had a chest cold for the past two weeks. Allergies levofloxacin [From LEVAQUIN] Allergy (Intermediate, Verified 04/15/23 11:33) cramps morphine [MORPHINE] Allergy (Mild, Verified 04/15/23 11:33) agitation/hallucinations Tobacco use date assessed: 08/26/22 Fall risk assessment: No Falls in past year Last assessed Fall Risk: 04/15/23 HPI Annual PE HPI Details Pt is here for PE. PSA velocity increased since last year, referred to urology. colon screen is up to date. Chonic lower back pain, I do send him oxycodone, small amt that last a long time. I will have him sign a pain contract with me. Labs were already performed. Pt does have a cough, with wheezing, denies any fevers, CP, SOB, dizziness, or BOSS PFSH Medical History GERD (gastroesophageal reflux disease) Elevated cholesterol HTN (hypertension) Pain of cervicothoracic region of spine Cervical stenosis of spinal canal Surgical History Hx of appendectomy History of colonoscopy History of lumbar fusion History of discectomy Family History Father Anxiety Depression Substance use disorder Mother Stroke Asthma Brother Stroke Substance use disorder Brother Liver disease Substance use disorder Daughter Diabetes mellitus Daughter Diabetes mellitus Son Asthma Social History Household Members: Spouse and Children Housing: House Alcohol intake: never Patient Tobacco Use Status: Never used Tobacco e-Cigarette/Vaping Use: Never Used Second Hand Smoke Exposure: No service: No Current occupational status: retired Cognitive needs: No Hearing needs: No Vision needs: No Questionnaire PHQ-9 Over the last 2 weeks, how often have you been bothered by any of the following problems? 95927 - PHQ-9 Billing: Patient declined-do not bill Source: Developed by Drs. Darryl Ramirez, Liza Rendon, Basilio Nix and colleagues, with an educational ronda from [employer]. Thrive Questionnaire Date Thrive assessed: 04/15/23 What is your living situation today?: I choose not to answer this question Within the past 12 months, did the food you bought not last and you didn't have the money to get more?: I choose not to answer this question Within the past 12 months, did you worry whether your food would run out before you got money to buy more?: I choose not to answer this question Do you have trouble paying for medicines?: I choose not to answer this question Do you have trouble getting transportation to medical appointments?: I choose not to answer this question Do you have trouble paying your heating and electricity bill?: I choose not to answer this question Do you have trouble taking care of your child, family member or friend?: I choose not to answer this question Do you have trouble with day-to-day activities such as bathing, preparing meals, shopping, managing finances, etc.?: I choose not to answer this question Are you currently unemployed and looking for a job?: I choose not to answer this question Are you interested in more education?: I choose not to answer this question Currently or been in a relationship where the following occur: I choose not to answer this question ARELI-7 AMB Questionnaire ARELI-7 Date ARELI - 7 assessed: 04/15/23 Source: Developed by Drs. Darryl Ramirez, Liza Rendon, Basilio Nix and colleagues, with an educational ronda from [employer]. ARELI-7 Assessment Billing ARELI-7 Assessment Tool: pt declined-do not bill Review of Systems Const Denies chills and Denies fever(s) Eyes Denies blurry vision ENT Denies vertigo, Denies dizziness and Denies sore throat Card Denies chest pain at rest, Denies chest pain with activity, Denies diaphoresis, Denies dyspnea and Denies dyspnea on exertion Resp Denies cough, Denies dyspnea, Denies dyspnea on exertion and Denies wheezing GI Denies abdominal pain, Denies melena, Denies hematochezia, Denies constipation, Denies diarrhea and Denies loose stools Denies hematuria Musc Denies numbness and Denies tingling Skin/Breast Denies lesions Neuro Denies vertigo, Denies dizziness, Denies numbness and Denies tingling Psych Denies anxiety, Denies depression, Denies homicidal ideation, Denies suicidal ideation and Denies other (substance abuse) Aller/Immun Denies wheezing Physical exam (Primary Care) Vital Signs: Last Vital Signs Pulse 86 04/15/23 11:32 BP 122/76 04/15/23 11:32 Pulse Ox 98 04/15/23 11:32 Oxygen Delivery Method Room Air 04/15/23 11:32 BMI result Body Mass Index 30.0 Tobacco/Smoking Status: Tobacco use Status Tobacco use date assessed 08/26/22 04/15/23 11:29 Patient Tobacco Use Status Never used Tobacco 04/15/23 11:29 e-Cigarette/Vaping Use Never Used 04/15/23 11:29 Thrive Assessment: Date of Thrive Assessment Date Thrive assessed 04/15/23 04/15/23 12:24 Currently or been in a relationship where the following occur: I choose not to answer this question Const General: cooperative Nutritional Appearance: well nourished Orientation/consciousness: patient oriented x3 HENMT Head: Yes normal to inspection, Yes normocephalic and Yes atraumatic Ears: TM normal on the right and TM normal on the left Eyes General: appearance normal, both eyes and all related structures Alignment and Position: alignment normal and position normal Neck Neck: Yes normal visual inspection and Yes no lymphadenopathy Resp Effort & Inspection: normal respiratory effort Auscultation: wheezes (wheezing noted throughout (bilat)) Cardio Rate: regular rate Rhythm: regular rhythm Heart sounds: S1 normal heart sound present, S2 normal heart sound present and no murmurs GI Palpation (GI): Soft to palpation and nontender Auscultation: normal bowel sounds Male General Exam: Yes normal external exam Penis: normal penis Scrotum: scrotum normal, testes descended bilaterally and no inguinal hernias Testes: no testicular mass Skin Rashes: no rashes Neuro General: patient oriented x3, moves all extremities, no focal motor deficits and deep tendon reflexes 2+ bilaterally Romberg Test: Negative Extrem Right lower extremity: no edema Left lower extremity: no edema Psych Affect: normal affect Attitude: cooperative Thought process: Normal thought process present Assessment and Plan Assessment & Plan (1) Increased prostate specific antigen (PSA) velocity: Code(s): R97.20 - Elevated prostate specific antigen [PSA] (2) Bronchitis: Code(s): J40 - Bronchitis, not specified as acute or chronic (3) Encounter for routine adult physical exam with abnormal findings: Code(s): Z00.01 - Encounter for general adult medical examination with abnormal findings (4) Chronic lower back pain: Code(s): M54.50 - Low back pain, unspecified; G89.29 - Other chronic pain Plan: narcotic pain contract signed Plan amox and prednisone sent. pt knows to contact me if symptoms are not better by next week. Orders: Referrals Urology Referral R97.20 - Elevated prostate specific antigen [PSA] Medications: New amoxicillin-pot clavulanate 875-125 mg 1 tab PO BID 20 tabs 0RF 10 days gabapentin 100 mg PO BEDTIME 90 caps 0RF prednisone 50 mg PO DAILY 6 tabs 0RF 6 days Refilled lorazepam 0.5 mg PO BID PRN 60 tabs 0RF anxiety 30 days oxycodone Partial Fill upon patient request. 10 mg PO DAILY PRN 10 tabs 0RF pain 10 days Coding Level of Care Code Est Pt Prev Care 40-64y(30349) Diagnoses Increased prostate specific antigen (PSA) velocity R97.20 Bronchitis J40 Encounter for routine adult physical exam with abnormal findings Z00.01 Chronic lower back pain M54.50; G89.29
[2023-04-15 11:32] VITALS: BP 122/76; PULSE 86; O2SAT 98
== END 2023-04-15 12:18 | disposition home or self-care (01) ==
PROVIDERS: Visit Provider Nurse Practitioner Family
DX: Z00.01 Encounter for general adult medical examination with abnormal findings (principal); J40 Bronchitis, not specified as acute or chronic; G89.29 Other chronic pain; R97.20 Elevated prostate specific antigen [PSA]; M54.50 Low back pain, unspecified
CPT/HCPCS: 99213; 99396

== ENCOUNTER 2023-05-18 09:48 | Outpatient (AMB) | payer OTHER, SELFPAY ==
--- NOTE | 2023-05-18 09:58 | A.OFFVIS_ITS ---
Intake Intake Visit Reasons: 6m/PSA(set) Intake Note: Patient is present for Follow Up, PSA Results: Urology Med: None Antibiotic Allergy: Levofloxacin Blood Thinner: None Television Host Required: No Accompanied by: Self / Same As Patient Allergies levofloxacin [From LEVAQUIN] Allergy (Intermediate, Verified 05/18/23 09:58) cramps morphine [MORPHINE] Allergy (Mild, Verified 05/18/23 09:58) agitation/hallucinations HPI HPI Comments History of Present Illness Details Rafa LINDSEY is a very pleasant male. He is a patient of Dr Sharp. He is seen for the following urologic conditions. - lower urinary tract symptoms Prior Left hydrocele repair 2020 Discussed his condo conversion project Brother had prostate cancer early PSA fell Repeat in 6 months Elevated PSA/Abnormal BECKY: PSA remains low Current management is observation. Laboratory investigations include 06/06 1.6 06/07 2.3, 08/06 1.3, 08/07 1.6, 04/09 2.3, 10/09 1.8, 04/10 2.1 Individualized Prostate Cancer Risk Calculator < 5% high risk, Would like to continue with observation and understands and accepts the risks of a possible delay in diagnosis. Overall symptoms are mild. Therapeutic plan will be continued surveillance. [facility] Medical History GERD (gastroesophageal reflux disease) Elevated cholesterol HTN (hypertension) Pain of cervicothoracic region of spine Cervical stenosis of spinal canal Surgical History Hx of appendectomy History of colonoscopy History of lumbar fusion History of discectomy Family History Father Anxiety Depression Substance use disorder Mother Stroke Asthma Brother Stroke Substance use disorder Brother Liver disease Substance use disorder Daughter Diabetes mellitus Daughter Diabetes mellitus Son Asthma Social History Household Members: Spouse and Children Housing: House Alcohol intake: never Patient Tobacco Use Status: Never used Tobacco e-Cigarette/Vaping Use: Never Used Second Hand Smoke Exposure: No service: No Current occupational status: retired Cognitive needs: No Hearing needs: No Vision needs: No Review of Systems Const Denies chills and Denies fever(s) Card Reports no additional complaints and Denies syncope Resp Denies cough GI Denies abdominal pain and Denies heartburn Reports as per HPI and Denies change in libido Neuro Denies syncope Psych Denies change in libido Endo Denies change in libido Physical Exam Const General: cooperative, healthy appearing, comfortable and no acute distress Orientation/consciousness: patient oriented x3 HEENT Face and sinus: Yes normal facial exam Mouth: moist mucous membranes Neck Neck: Yes normal visual inspection, Yes full ROM and Yes trachea midline Chest Chest palpation & inspection: normal inspection of the chest Resp Effort & Inspection: normal respiratory effort, able to speak in complete sentences and no respiratory distress GI Inspection: Yes normal to inspection Back/Spine/Pelvis Cervical Spine: normal cervical lordosis Thoracic/Lumbar Spine: thoracic and lumbar spine normal to inspection Skin General skin exam: no rashes or lesions noted Neuro General: patient oriented x3, gait normal, tone normal and moves all extremities Extrem General: Yes normal to inspection and Yes capillary refill normal Results AMB Urinalysis, Automated UA Leukoctes 15 Jack/uL Last Edit by GALEN Mast on 05/18/23 10:05 UA Nitrite Negative Last Edit by GALEN Mast on 05/18/23 10:05 UA Urobilinogen 0.2 mg/dL Last Edit by GALEN Mast on 05/18/23 10:0 5 UA Protein 15 mg/dL Last Edit by GALEN Mast on 05/18/23 10:05 UA pH 6.0 Last Edit by GALEN Mast on 05/18/23 10:05 UA Blood 0 Brando/uL Last Edit by GALEN Mast on 05/18/23 10:05 UA Specific [place] 1.030 Last Edit by GALEN Mast on 05/18/23 10: 05 UA Ketone Positive Last Edit by GALEN Mast on 05/18/23 10:05 5 mg/dL Marshall Andrews 05/18/23 10:05 UA Bilirubin 1 mg/dL Last Edit by GALEN Mast on 05/18/23 10:05 1+ Marshall Andrews 05/18/23 10:05 UA Glucose 0 mg/dL Last Edit by GALEN Mast on 05/18/23 10:05 Results Reviewed Results Reviewed: Laboratory Last Values Urine pH (Auto) 6.0 05/18/23 10:04 Specific [place] (Auto) 1.030 05/18/23 10:04 Urine Protein (Auto) 15 mg/dL 05/18/23 10:04 Glucose (UA)(Auto) 0 mg/dL 05/18/23 10:04 Urine Ketones (Auto) Positive 05/18/23 10:04 Urine Blood (Auto) 0 Brando/uL 05/18/23 10:04 Urine Nitrite (Auto) Negative 05/18/23 10:04 Urine Bilirubin (Auto) 1 mg/dL 05/18/23 10:04 Urine Urobilinogen (Auto) 0.2 mg/dL 05/18/23 10:04 Leukocyte Esterase (Auto) 15 Jack/uL 05/18/23 10:04 Assessment & Plan Assessment & Plan (1) Bladder outlet obstruction: Code(s): N32.0 - Bladder-neck obstruction Plan Six-month follow-up Orders: Orders AMB Urinalysis Automated 05/18/23 Z13.9 - Encounter for screening, unspecified Prostate Specific Antigen 6 Months R97.20 - Elevated prostate specific antigen [PSA] Patient Instructions: Imaging studies, laboratory and physical exam results were discussed and reviewed in detail. No major barriers to patient understanding were identified. An opportunity to ask questions regarding the treatment plan was provided. All questions were answered. The patient expressed understanding and agreement with the above treatment plan. The patient is aware they should contact our office by phone for worsening of their current condition or the appearance of new urologic symptoms. Compliance is encouraged with any medications and followup testing that is ordered. It is a privilege to participate in the urologic care of your patient. If you have any questions or concerns regarding treatment for the above conditions, or other urologic issues, please do not hesitate to contact me. The office telephone contact is [phone]. This note is constructed using voice recognition software. While every effort has been made to ensure accuracy customs appraiser errors may have been included. Yours sincerely, Dr Benedict Hardy MD, [facility] - Urology Providers of Expert, Compassionate Care for the Genitourinary System Coding Level of Care Code Est Pt Level 3 (56911) Diagnoses Bladder outlet obstruction N32.0
== END 2023-05-18 10:49 | disposition home or self-care (01) ==
PROVIDERS: PCP Nurse Practitioner Family; Visit Provider Urology
DX: N32.0 Bladder-neck obstruction (principal)
CPT/HCPCS: 99213

== ENCOUNTER → 2023-05-18 09:48 | Outpatient (BNVA) | payer OTHER, SELFPAY | PROVIDERS: PCP Nurse Practitioner Family; Visit Provider Urology | DX: N32.0 Bladder-neck obstruction (principal) | CPT/HCPCS: 81003 ==

== ENCOUNTER 2023-07-16 10:26 | Outpatient (AMB) | payer OTHER, SELFPAY ==
--- NOTE | 2023-07-16 10:27 | A.OFFVIS_ITS ---
Intake Vital Signs 07/16/23 10:28 Height 6 ft 2 in Weight 230 lb 9.656 oz BMI 29.6 BP 145/78 H Blood Pressure Location Lt brachial Position Sitting Pulse 78 Intake Visit Reasons: pt req appointment Intake Note: Patient in office visit today in follow up of abdominal pain. CC: Patient c/o lower abdominal pain for about a month and a half. He also c/o constipation alternating with diarrhea, a lot of gas, sensation of incomplete BM, hemorrhoids bleeding on and off, and very enlarged hemorrhoids about 2 weeks ago. Patient states that he has to push even when stools are lose. Patient concerned for diverticulitis. Patient states that for the last 6 months he's have no energy at all. 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 He caught COVID and had to come off of all of his medications. The Paxlovid really destroyed me, but now he is better. He has chronic back and neck pain, but it is at a manageable level. He does not need to continue to see me, so I wll see him again in 2 years for repeat colonoscopy - last was in 2018 and he has FHX of CRC> He is agreeable to this (2) Irritable bowel syndrome with diarrh ea: Code(s): K58.0 - Irritable bowel syndrome with diarrhea (3) Elevated liver enzymes: Code(s): R74.8 - Abnormal levels of other serum enzymes Laboratory Tests 08/11/18 03/31/23 12:55 10:34 WBC 4.7 L Hgb 15.2 Hct 45.1 Plt Count 163 Estimated GFR > 60 Total Bilirubin 0.5 AST 28 ALT 29 Alkaline Phosphata se 63 TSH 1.56 IgA 206 Endomysial IgA Ab Negative Tiss Transglutamin IgG 1 Tiss Transglutamin IgA 1 Anti-Gliadin IgG A b 4 Anti-Gliadin IgA A b 5 TODAY'S VISIT PATIENT HAS BEEN LOST TO FOLLOW-UP SINCE 01/2022 TODAY HE IS COMPLAINING OF A LOT OF ABDOMINAL BLOATING, frequent loose stools, alternating with formed stools with straining, large hemorrhoids, and extreme fatigue. Onset of worsening problems about 2 mos ago. He stopped taking all of his stomach meds after having COVID including his other chronic medications such as gabapentin and lorazepam. He just restarted his GI meds a month ago. Certainly, many these medications have implications over many body systems and this could have impacted the GI system. He has pain over the suprapubic area that radiates to the left. He says this is somewhat similar to his past TICS attacks. It is a constant dull pain over the past 7 mos, it goes away at times for 1/2-1 day but then will restart. He also has chronic back pain r/t musculoskeletal issues. His stooling has gone back and forth between loose to more solid with changing shapes and consistencies. His hemorrhoids have been acting up with some RB on the TT. His PSA has been rising and he sees urology. His brother had pancreatic cancer and Rafa would like an MRI, but it is not likely that this would be paid for. Given his concerns about diverticulitis it has not unreasonable to treat him empirically and I will give him a round of Augmentin since he is allergic to fluoroquinolones. Will represcribed the dicyclomine at a higher dose of 20 mg and get some additional testing. This will include a CT scan. Return office visit in 4-6 weeks. [facility] Medical History (Updated 07/16/23 @ 11:06 by NIKITA Morris) Encounter for routine adult physical exam with abnormal findings Elevated liver enzymes Post covid-19 condition, unspecified Physical exam GERD (gastroesophageal reflux disease) Elevated cholesterol HTN (hypertension) Pain of cervicothoracic region of spine Cervical stenosis of spinal canal Surgical History Hx of appendectomy History of colonoscopy History of lumbar fusion History of discectomy Family History Father Anxiety Depression Substance use disorder Mother Stroke Asthma Brother Stroke Substance use disorder Brother Liver disease Substance use disorder Daughter Diabetes mellitus Daughter Diabetes mellitus Son Asthma Social History Household Members: Spouse and Children Housing: House Alcohol intake: never Patient Tobacco Use Status: Never used Tobacco e-Cigarette/Vaping Use: Never Used Second Hand Smoke Exposure: No service: No Current occupational status: retired Cognitive needs: No Hearing needs: No Vision needs: No Review of Systems Const Reports fatigue, Denies fever(s), Denies night sweats, Denies poor appetite and Denies weight loss ENT Reports Normal hearing present, Denies dental pain, Denies dysphagia, Denies hearing loss, Denies mouth pain, Denies odynophagia, Denies throat swelling, De nies tongue swelling and Reports other (Dentition adequate) Card Reports no additional complaints Resp Reports no additional complaints GI Details: Denies abdominal pain, Denies melena, Reports bloating, Denies hematochezia, Denies constipation, Denies GI cramping, Denies dysphagia, Denies excessive flatus, Denies early satiety, Reports dyspepsia, Reports heartburn, Denies diarrhea, Reports loose stools, Denies nausea, Denies odynophagia, Denies vomiting and Denies hematemesis Musc Reports back pain Skin/Breast Denies pruritus, Denies lesions, Denies rash and Denies jaundice Neuro Reports Normal hearing present and Denies Abnormal speech present Endo Reports fatigue Aller/Immun Denies throat swelling and Denies tongue swelling Physical Exam Vital Signs: Last Vital Signs Pulse 78 07/16/23 10:28 BP 145/78 H 07/16/23 10:28 BMI result Body Mass Index 29.6 Const General: cooperative, no acute distress, well developed and well groomed Nutritional Appearance: average body habitus and well nourished Orientation/consciousness: oriented to person, oriented to place and oriented to time Limitations: No language barrier HEENT Head: Yes normocephalic and Yes atraumatic Eyes General: appearance normal, both eyes and all related structures Pupils: Equal, round and reactive pupils present Neck Neck: Yes normal visual inspection and Yes no lymphadenopathy Thyroid: Thyroid normal Resp Effort & Inspection: normal respiratory effort and able to speak in complete sentences Auscultation: clear to auscultation bilaterally Cardio Rate: regular rate Rhythm: regular rhythm Heart sounds: Normal, physiologic split S2 sound present Peripheral pulses: radial pulses present and posterior tibial pulses present GI Inspection: No distended and No Abdominal panniculus present Palpation (GI): Soft to palpation, nontender, no guarding, not rigid and No hepatosplenomegaly present Percussion: Yes normal to percussion Auscultation: normal bowel sounds Rectal Exam - Male: Yes deferred Skin General skin exam: no rashes or lesions noted, turgor normal, skin not dry, no jaundice, No spider nevi and no striae Rashes: no rashes Nails: normal Neuro General: oriented to person, oriented to place and oriented to time Cranial nerves: Yes Equal, round and reactive pupils present and Yes Normal hearing present Speech: No Abnormal speech present Extrem General: Yes normal to inspection, No clubbing, No cyanosis and No edema Psych Appearance: grossly normal and well kempt Mental Status: mental status grossly normal Speech and movement: Normal speech and movement present Affect: normal affect Attitude: cooperative Thought process: Normal thought process present and not confabulating Thought content: Normal thought content present Insight: Limited insight present (Psych) Judgement: Limited judgement present (Psych) Assessment & Plan Assessment & Plan (1) Family history of colon cancer: Comment: Maternal grandmother, last scoped 2019 negative repeat in 5 years Code(s): Z80.0 - Family history of malignant neoplasm of digestive organs (2) GERD (gastroesophageal reflux disease): Code(s): K21.9 - Gastro-esophageal reflux disease without esophagitis (3) Fatigue: Code(s): R53.83 - Other fatigue (4) Irritable bowel syndrome with diarrhea: Code(s): K58.0 - Irritable bowel syndrome with diarrhea (5) Abdominal pain: Code(s): R10.9 - Unspecified abdominal pain Plan PATIENT HAS BEEN LOST TO FOLLOW-UP SINCE 01/2022 TODAY HE IS COMPLAINING OF A LOT OF ABDOMINAL BLOATING, frequent loose stools, alternating with formed stools with straining, large hemorrhoids, and extreme fatigue. Onset of worsening problems about 2 mos ago. He stopped taking all of his stomach meds after having COVID including his other chronic medications such as gabapentin and lorazepam. He just restarted his GI meds a month ago. Certainly, many these medications have implications over many body systems and this could have impacted the GI system. He has pain over the suprapubic area that radiates to the left. He says this is somewhat similar to his past TICS attacks. It is a constant dull pain over the past 7 mos, it goes away at times for 1/2-1 day but then will restart. He also has chronic back pain r/t musculoskeletal issues. His stooling has gone back and forth between loose to more solid with changing shapes and consistencies. His hemorrhoids have been acting up with some RB on the TT. His PSA has been rising and he sees urology. His brother had pancreatic cancer and Rafa would like an MRI, but it is not likely that this would be paid for. Given his concerns about diverticulitis it has not unreasonable to treat him empirically and I will give him a round of Augmentin since he is allergic to fluoroquinolones. Will represcribed the dicyclomine at a higher dose of 20 mg and get some additional testing. This will include a CT scan. Return office visit in 4-6 weeks. Orders: Orders CT abdomen pelvis w IV con Today R10.9 - Unspecified abdominal pain Amylase Today K58.0 - Irritable bowel syndrome with diarrhea, R10.9 - Unspecified abdominal pain Hepatitis A IgG Today K58.0 - Irritable bowel syndrome with diarrhea, R10.9 - Unspecified abdominal pain Hepatitis A IgM Today K58.0 - Irritable bowel syndrome with diarrhea, R10.9 - Unspecified abdominal pain Rast Allergen Today K58.0 - Irritable bowel syndrome with diarrhea, R10.9 - Unspecified abdominal pain Colonoscopy - GI Use Only Today Z80.0 - Family history of malignant neoplasm of digestive organs Comprehensive Met. Panel Today K58.0 - Irritable bowel syndrome with diarrhea, R10.9 - Unspecified abdominal pain Lipase Today K58.0 - Irritable bowel syndrome with diarrhea, R10.9 - Unspecified abdominal pain Medications: New dicyclomine 20 mg PO QID 30 days 120 tabs 6RF omeprazole 20 mg PO DAILY 30 days 30 caps 3RF peg 3350-electrolytes [id number] -5.86 gram (Golytely) until fecal effluent is clear; do not exceed a total volume of 2,000 mL 240 mL PO Q10M 1 day 4,000 mL 0RF Z12.11 - Encounter for screening for malignant neoplasm of colon amoxicillin-pot clavulanate 875-125 mg 1 tab PO BID 10 days 20 tabs 0RF Coding Level of Care Code Est Pt Level 4 (28426) Diagnoses Family history of colon cancer Z80.0 GERD (gastroesophageal reflux disease) K21.9 Fatigue R53.83 Irritable bowel syndrome with diarrhea K58.0 Abdominal pain R10.9
[2023-07-16 10:28] VITALS: BP 145/78; PULSE 78; BMI 29.6
== END 2023-07-16 11:15 | disposition home or self-care (01) ==
PROVIDERS: PCP Nurse Practitioner Family; Visit Provider Nurse Practitioner
DX: Z80.0 Family history of malignant neoplasm of digestive organs (principal); K21.9 Gastro-esophageal reflux disease without esophagitis; R53.83 Other fatigue; K58.0 Irritable bowel syndrome with diarrhea; R10.9 Unspecified abdominal pain
CPT/HCPCS: 99214

== ENCOUNTER 2023-07-16 10:26 | Outpatient (REF) | payer OTHER, SELFPAY ==
[2023-07-16 13:15] LABS: Alanine Aminotransferase 24 U/L (0-40); Albumin Level 4.4 g/dL (3.5-5.0); Alkaline Phosphatase 66 U/L (39-117); Amylase 48 U/L (28-100); Anion Gap 12 (12-20); Aspartate Amino Transferase 24 U/L (5-37); Bilirubin Total 0.6 mg/dL (0.0-1.0); Blood Urea Nitrogen 18 mg/dL (9-16); Calcium 9.8 mg/dL (8.4-10.2); Carbon Dioxide 28 mmol/L (22-29); Chloride 107 mmol/L (96-108); Estimated Glomerular Filt Rate > 60; Glucose Random 97 mg/dL (60-115); Lipase 28 U/L (8-78); Potassium 4.6 mmol/L (3.3-5.1); Sodium 142 mmol/L (135-145); Total Protein 7.3 g/dL (6.5-8.0)
[2023-07-19 08:25] LABS: Hepatitis A Antibody IgG REACTIVE (Nonreactive); Hepatitis A Antibody IgM 0.83 Index (0-0.79); ~Hepatitis A Antibody IgG 11.23 S/CO (0.00-0.99); ~Hepatitis A Antibody IgM GRAYZONE (Nonreactive)
== END 2023-07-16 10:27 | disposition home or self-care (01) ==
LOC: HO.LAB 10:26
PROVIDERS: PCP Nurse Practitioner Family; Visit Provider Nurse Practitioner
DX: R10.9 Unspecified abdominal pain (principal); K58.0 Irritable bowel syndrome with diarrhea; Z91.09 Other allergy status, other than to drugs and biological substances
CPT/HCPCS: 36415; 80053; 82150; 83690; 86003; 86708; 86709

== ENCOUNTER 2023-08-13 11:37 | Outpatient (AMB) | payer OTHER, SELFPAY ==
[2023-08-13 11:43] VITALS: BP 128/72; PULSE 79; BMI 29.3
--- NOTE | 2023-08-13 11:43 | A.OFFVIS_ITS ---
Vital Signs 08/13/23 11:43 Height 6 ft 2 in Weight 228 lb 6.382 oz BMI 29.3 BP 128/72 Blood Pressure Location Rt brachial Position Sitting Pulse 79 Intake Visit Reasons: 4 week follow up Intake Note: Patient in office visit today in follow up of abdominal pain and labs. CC: Patient continues having lower abdominal pain, constipation alternating with diarrhea, a lot of gas, sensation of incomplete BM, hemorrhoids bleeding on and off. District Agent Required: No Accompanied by: Self / Same As Patient Allergies levofloxacin [From LEVAQUIN] Allergy (Intermediate, Verified 08/16/23 15:13) cramps morphine [MORPHINE] Allergy (Mild, Verified 08/16/23 15:13) agitation/hallucinations HPI HPI 4 week follow up: Details: Assessment & Plan (1) Family history of colon cancer: Comment: Maternal grandmother, last scoped 2018 negative repeat in 5 years Code(s): Z80.0 - Family history of malignant neoplasm of digestive organs (2) GERD (gastroesophageal reflux disease): Code(s): K21.9 - Gastro-esophageal reflux disease without esophagitis (3) Fatigue: Code(s): R53.83 - Other fatigue (4) Irritable bowel syndrome with diarrhea: Code(s): K58.0 - Irritable bowel syndrome with diarrhea (5) Abdominal pain: Code(s): R10.9 - Unspecified abdominal pain Plan PATIENT HAS BEEN LOST TO FOLLOW-UP SINCE 01/2022 TODAY HE IS COMPLAINING OF A LOT OF ABDOMINAL BLOATING, frequent loose stools, alternating with formed stools with straining, large hemorrhoids, and extreme fatigue. Onset of worsening problems about 2 mos ago. He stopped taking all of his stomach meds after having COVID including his other chronic medications such as gabapentin and lorazepam. He just restarted his GI meds a month ago. Certainly, many these medications have implications over many body systems and this could have impacted the GI system. He has pain over the suprapubic area that radiates to the left. He says this is somewhat similar to his past TICS attacks. It is a constant dull pain over the past 7 mos, it goes away at times for 1/2-1 day but then will restart. He also has chronic back pain r/t musculoskeletal issues. His stooling has gone back and forth between loose to more solid with changing shapes and consistencies. His hemorrhoids have been acting up with some RB on the TT. His PSA has been rising and he sees urology. His brother had pancreatic cancer and Rafa would like an MRI, but it is not likely that this would be paid for. Given his concerns about diverticulitis it has not unreasonable to treat him empirically and I will give him a round of Augmentin since he is allergic to fluoroquinolones. Will represcribed the dicyclomine at a higher dose of 20 mg a nd get some additional testing. This will include a CT scan. Return office visit in 4-6 weeks. Orders: Orders CT abdomen pelvis w IV con Today R10.9 - Unspecified abdominal pain Amylase Today K58.0 - Irritable bowel syndrome with diarrhea, R10.9 - Unspecified abdominal pain Hepatitis A IgG Today K58.0 - Irritable bowel syndrome with diarrhea, R10.9 - Unspecified abdominal pain Hepatitis A IgM Today K58.0 - Irritable bowel syndrome with diarrhea, R10.9 - Unspecified abdominal pain Rast Allergen Today K58.0 - Irritable bowel syndrome with diarrhea, R10.9 - Unspecified abdominal pain Colonoscopy - GI Use Only Today Z80.0 - Family history of malignant neoplasm of digestive organs Comprehensive Met. Panel Today K58.0 - Irritable bowel syndrome with diarrhea, R10.9 - Unspecified abdominal pain Lipase Today K58.0 - Irritable bowel syndrome with diarrhea, R10.9 - Unspecified abdominal pain Medications: New dicyclomine 20 mg PO QID 30 days 120 tabs 6RF omeprazole 20 mg PO DAILY 30 days 30 caps 3RF peg 3350-electrolytes 236-22.74-6.74 -5.86 gram (Golytely) until fecal effluent is clear; do not exceed a total volume of 2,000 mL 240 mL PO Q10M 1 day 4,000 mL 0RF Z12.11 - Encounter for screening for malignant neoplasm of colon amoxicillin-pot clavulanate 875-125 mg 1 tab PO BID 10 days 20 tabs 0RF LABS: Laboratory Tests 02/10/22 02/25/22 07/16/23 12:42 12:56 11:30 Estimated GFR > 60 Total Bilirubin 0.6 AST 24 ALT 24 Alkaline Phosphatase 66 Amylase 48 Lipase 28 Hepatitis A IgG Ab REACTIVE Hep Bs Antigen Negative Hepatitis A IgM Ab GRAYZONE Hep Bs Antibody NONREACTIVE Hep B Core Total Ab Nonreactive Hepatitis C Ab (EIA) Nonreactive RAST ALLERGY PANEL WAS NEGATIVE CT ABDOMEN AND PELVIS ULTRASOUND OF THE ABDOMEN 03/10/22 FINDINGS: PANCREAS: Normal. ABDOMINAL AORTA: The proximal, mid, and distal segments are normal in caliber. INFERIOR VENA CAVA: Visualized portions are normal. LIVER: The liver is normal in size. The liver contour is normal. Liver echotexture is increased. No focal hepatic lesion. There is no intrahepatic biliary duct dilatation seen. GALLBLADDER: Gallbladder is normal in size. There are small echogenic densities in the gallbladder questionable for small stones versus gallbladder wall polyps. Similar these move favoring stones. Largest measures 5 mm. COMMON BILE DUCT: Not well visualized. Normal in caliber measuring 0.5 cm in diameter. RIGHT KIDNEY: Peripelvic upper pole cyst measuring 2.3 x 1.5 x 2 cm No hydronephrosis or renal calculi. The kidney measures 12.4 cm in maximum dimension. LEFT KIDNEY: Peripelvic lower pole cyst measuring 1.8 x 1.6 x 2 cm No hydronephrosis or renal calculi. The kidney measures 13.6 cm in maximum dimension. SPLEEN: Normal. The spleen measures 12.3 cm in maximum dimension. FREE FLUID: None. US/US abdomen complete IMPRESSION: Limited exam. Echogenic liver. Differential would include fatty infiltration and hepatocellular disease. Question small gallstones versus gallbladder wall polyps. Bilateral renal cysts. CORRESPONDENCE On 07/22/23 @ 12:19 Yoly Scott Wrote To Russell Patient has requested a results letter as opposed to a follow up appointment. On 07/20/23 @ 09:06 Yoly Scott Wrote To RussellJoan Scheduled patient over the phone. Patient wishes to be sent a results letter. Told patient I would ask his provider and let him know. please advise TODAY'S VISIT He improved with the augmentin but w/o complete resolution, but since he completed the course the pain is returning - however, he has not had the very sharp pains. Will re treat with bactim and flagyl (he has a Levaquin allergy). CT upcoming 09/02, scope 12/16 we review all of the results that are available so far and it appears that whatever is going on liver is nothing severe, perhaps some mild RIVERA if the hepatitis a is ruled out, since his transaminases are currently normal on the liver is not enlarged. Referring to ID for persistent elevated Hep A IGM. ROV after 09/02 CT [facility] Medical History Encounter for routine adult physical exam with abnormal findings Elevated liver enzymes Post covid-19 condition, unspecified Physical exam GERD (gastroesophageal reflux disease) Elevated cholesterol HTN (hypertension) Pain of cervicothoracic region of spine Cervical stenosis of spinal canal Surgical History Hx of appendectomy History of colonoscopy History of lumbar fusion History of discectomy Family History Father Anxiety Depression Substance use disorder Mother Stroke Asthma Brother Stroke Substance use disorder Brother Liver disease Substance use disorder Daughter Diabetes mellitus Daughter Diabetes mellitus Son Asthma Social History Household Members: Spouse and Children Housing: House Alcohol intake: never Patient Tobacco Use Status: Never used Tobacco e-Cigarette/Vaping Use: Never Used Second Hand Smoke Exposure: No service: No Current occupational status: retired Cognitive needs: No Hearing needs: No Vision needs: No Review of Systems Const Denies fatigue, Denies fever(s), Denies night sweats, Denies poor appetite and Denies weight loss ENT Reports Normal hearing present, Denies dental pain, Denies dysphagia, Denies hearing loss, Denies mouth pain, Denies odynophagia, Denies throat swelling, Denies tongue swelling and Reports other (Dentition adequate) Card Reports no additional complaints Resp Reports no additional complaints GI Details: Reports abdominal pain, Denies melena, Denies bloating, Denies hematochezia, Denies constipation, Denies GI cramping, Denies dysphagia, Denies excessive flatus, Denies early satiety, Denies heartburn, Denies diarrhea, Denies nausea, Denies odynophagia, Denies vomiting and Denies hematemesis Skin/Breast Denies pruritus, Denies lesions, Denies rash and Denies jaundice Neuro Reports Normal hearing present and Denies Abnormal speech present Endo Denies fatigue Aller/Immun Denies throat swelling and Denies tongue swelling Physical Exam Vital Signs: Last Vital Signs Pulse 79 08/13/23 11:43 BP 128/72 08/13/23 11:43 BMI result Body Mass Index 29.3 Const General: cooperative, no acute distress, well developed and well groomed Nutritional Appearance: well nourished and overweight Orientation/consciousness: oriented to person, oriented to place and oriented to time Limitations: No language barrier HEENT Head: Yes normocephalic and Yes atraumatic Eyes General: appearance normal, both eyes and all related structures Pupils: Equal, round and reactive pupils present Neck Neck: Yes normal visual inspection and Yes no lymphadenopathy Thyroid: Thyroid normal Resp Effort & Inspection: normal respiratory effort and able to speak in complete sen tences Auscultation: clear to auscultation bilaterally Cardio Rate: regular rate Rhythm: regular rhythm Heart sounds: Normal, physiologic split S2 sound present Peripheral pulses: radial pulses present and posterior tibial pulses present GI Inspection: No distended and No Abdominal panniculus present Palpation (GI): Soft to palpation, nontender, no guarding, not rigid and No hepa tosplenomegaly present Percussion: Yes normal to percussion Auscultation: normal bowel sounds Rectal Exam - Male: Yes deferred Skin General skin exam: no rashes or lesions noted, turgor normal, skin not dry, no jaundice, No spider nevi and no striae Rashes: no rashes Nails: normal Neuro General: oriented to person, oriented to place and oriented to time Cranial nerves: Yes Equal, round and reactive pupils present and Yes Normal hearing present Speech: No Abnormal speech present Extrem General: Yes normal to inspection, No clubbing, No cyanosis and No edema Psych Appearance: grossly normal and well kempt Mental Status: mental status grossly normal Speech and movement: Normal speech and movement present Affect: normal affect Attitude: cooperative Thought process: Normal thought process present and not confabulating Thought content: Normal thought content present Insight: Good insight present (Psych) Judgement: Good judgement present (Psych) Results Reviewed Results Reviewed: Laboratory Tests 02/10/22 02/25/22 07/16/23 12:42 12:56 11:30 Estimated GFR > 60 Total Bilirubin 0.6 AST 24 ALT 24 Alkaline Phosphatase 66 Amylase 48 Lipase 28 Hepatitis A IgG Ab REACTIVE Hep Bs Antigen Negative Hepatitis A IgM Ab GRAYZONE Hep Bs Antibody NONREACTIVE Hep B Core Total Ab Nonreactive Hepatitis C Ab (EIA) Nonreactive RAST ALLERGY PANEL WAS NEGATIVE CT ABDOMEN AND PELVIS ULTRASOUND OF THE ABDOMEN 03/10/22 FINDINGS: PANCREAS: Normal. ABDOMINAL AORTA: The proximal, mid, and distal segments are normal in caliber. INFERIOR VENA CAVA: Visualized portions are normal. LIVER: The liver is normal in size. The liver contour is normal. Liver echotexture is increased. No focal hepatic lesion. There is no intrahepatic biliary duct dilatation seen. GALLBLADDER: Gallbladder is normal in size. There are small echogenic densities in the gallbladder questionable for small stones versus gallbladder wall polyps. Similar these move favoring stones. Largest measures 5 mm. COMMON BILE DUCT: Not well visualized. Normal in caliber measuring 0.5 cm in diameter. RIGHT KIDNEY: Peripelvic upper pole cyst measuring 2.3 x 1.5 x 2 cm No hydronephrosis or renal calculi. The kidney measures 12.4 cm in maximum dimension. LEFT KIDNEY: Peripelvic lower pole cyst measuring 1.8 x 1.6 x 2 cm No hydronephrosis or renal calculi. The kidney measures 13.6 cm in maximum dimension. SPLEEN: Normal. The spleen measures 12.3 cm in maximum dimension. FREE FLUID: None. US/US abdomen complete IMPRESSION: Limited exam. Echogenic liver. Differential would include fatty infiltration and hepatocellular disease. Question small gallstones versus gallbladder wall polyps. Bilateral renal cysts Assessment & Plan Assessment & Plan (1) Abdominal pain: Code(s): R10.9 - Unspecified abdominal pain Category: Medical (2) GERD (gastroesophageal reflux disease): Code(s): K21.9 - Gastro-esophageal reflux disease without esophagitis Category: Medical (3) Family history of colon cancer: Comment: Maternal grandmother, last scoped 2019 negative repeat in 5 years Code(s): Z80.0 - Family history of malignant neoplasm of digestive organs Category: Medical (4) Diverticulitis: Code(s): K57.92 - Diverticulitis of intestine, part unspecified, without perforation or abscess without bleeding Category: Medical (5) Hepatitis A antibody positive: Comment: persisted elevated ab over years this only reflects acute infection and here no more antibody testing. This is nonspecific and not use ful here.This is false positive. CHeck Hepatitis A antibody IgG instead on IgM to tell antibodies in future. Code(s): R76.8 - Other specified abnormal immunological findings in serum Category: Medical Plan He improved with the augmentin but w/o complete resolution, but since he completed the course the pain is returning - however, he has not had the very sharp pains. Will re treat with bactim and flagyl (he has a Levaquin allergy). CT upcoming 09/02, scope 12/16 we review all of the results that are available so far and it appears that whatever is going on liver is nothing severe, perhaps some mild RIVERA if the hepatitis a is ruled out, since his transaminases are currently normal on the liver is not enlarged. Referring to ID for persistent elevated Hep A IGM. ROV after 09/02 CT Orders: Referrals Infectious Disease Referral R76.8 - Other specified abnormal immunological findings in serum Medications: New sulfamethoxazole-trimethoprim 800-160 mg (Bactrim DS) 1 tab PO BID 10 tabs 0RF K57.92 - Diverticulitis of intestine, part unspecified, without perforation or abscess without bleeding metronidazole 500 mg PO TID 30 tabs 0RF 10 days Coding Level of Care Code Est Pt Level 3 (06793) Diagnoses Abdominal pain R10.9 GERD (gastroesophageal reflux disease) K21.9 Family history of colon cancer Z80.0 Diverticulitis K57.92 Hepatitis A antibody positive R76.8
== END 2023-08-13 12:45 | disposition home or self-care (01) ==
PROVIDERS: PCP Nurse Practitioner Family; Visit Provider Nurse Practitioner
DX: R10.9 Unspecified abdominal pain (principal); K21.9 Gastro-esophageal reflux disease without esophagitis; Z80.0 Family history of malignant neoplasm of digestive organs; K57.92 Diverticulitis of intestine, part unspecified, without perforation or abscess without bleeding; R76.8 Other specified abnormal immunological findings in serum
CPT/HCPCS: 99213

== ENCOUNTER → 2023-08-13 11:37 | Outpatient (BNVA) | payer OTHER, SELFPAY | PROVIDERS: PCP Nurse Practitioner Family; Visit Provider Nurse Practitioner ==

== ENCOUNTER 2023-08-16 14:31 | Outpatient (AMB) | payer OTHER, SELFPAY ==
--- NOTE | 2023-08-16 15:04 | A.OFFVIS_ITS ---
Vital Signs 08/16/23 15:09 Height 6 ft 2 in Weight 235 lb BMI 30.2 Pulse 100 Pulse Source Pulse Oximeter Pulse Oximetry (%) 96 Oxygen Delivery Method Room Air Intake Visit Reasons: Ref.[facility],GI,Abnormal immunological finding in serum Allergies levofloxacin [From LEVAQUIN] Allergy (Intermediate, Verified 08/16/23 15:13) cramps morphine [MORPHINE] Allergy (Mild, Verified 08/16/23 15:13) agitation/hallucinations HPI HPI Ref.[facility],GI,Abnormal immunological finding in serum: Details: He has been followed by Gi for fatty liver Apparently he keeps getting Hepatitis A IgM levels drawn and were positive 2021 and 2022 also. He has no symptoms now. [facility] Medical History Encounter for routine adult physical exam with abnormal findings Elevated liver enzymes Post covid-19 condition, unspecified Physical exam GERD (gastroesophageal reflux disease) Elevated cholesterol HTN (hypertension) Pain of cervicothoracic region of spine Cervical stenosis of spinal canal Surgical History Hx of appendectomy History of colonoscopy History of lumbar fusion History of discectomy Family History Father Anxiety Depression Substance use disorder Mother Stroke Asthma Brother Stroke Substance use disorder Brother Liver disease Substance use disorder Daughter Diabetes mellitus Daughter Diabetes mellitus Son Asthma Social History Household Members: Spouse and Children Housing: House Alcohol intake: never Patient Tobacco Use Status: Never used Tobacco e-Cigarette/Vaping Use: Never Used Second Hand Smoke Exposure: No service: No Current occupational status: retired Cognitive needs: No Hearing needs: No Vision needs: No Review of Systems Const All systems reviewed & are unremarkable except as noted in HPI and below Physical Exam Vital Signs: Last Vital Signs Pulse 100 08/16/23 15:09 Pulse Ox 96 08/16/23 15:09 Oxygen Delivery Method Room Air 08/16/23 15:09 BMI result Body Mass Index 30.2 Assessment & Plan Assessment & Plan (1) Hepatitis A antibody positive: Comment: persisted elevated ab over years this only reflects acute infection and here no more antibody testing. This is nonspecific and not use ful here.This is false positive. CHeck Hepatitis A antibody IgG instead on IgM to tell antibodies in future. Code(s): R76.8 - Other specified abnormal immunological findings in serum Category: Medical Plan per chart Coding Level of Care Code New Pt Level 4 (37826) Diagnoses Hepatitis A antibody positive R76.8
[2023-08-16 15:09] VITALS: PULSE 100; O2SAT 96; BMI 30.2
== END 2023-08-16 15:35 | disposition home or self-care (01) ==
PROVIDERS: PCP Nurse Practitioner Family; Visit Provider Internal Medicine
DX: R76.8 Other specified abnormal immunological findings in serum (principal)
CPT/HCPCS: 99204

== ENCOUNTER → 2023-08-16 14:31 | Outpatient (BNVA) | payer OTHER, SELFPAY | PROVIDERS: PCP Nurse Practitioner Family; Visit Provider Internal Medicine ==

== ENCOUNTER 2023-09-03 05:33 | Outpatient (REF) | payer OTHER, SELFPAY ==
--- NOTE | ~2023-09-03 | CT_ITS ---
EXAMINATION: CT ABDOMEN AND PELVIS WITH CONTRAST CLINICAL INFORMATION: Abdominal pain. COMPARISON: Abdominal ultrasound dated 03/09/2022; CT abdomen and pelvis dated 01/22/2016. TECHNIQUE: Multidetector volumetric images were obtained from the superior aspect of the liver through the pubic symphysis following administration 85 mL of Omnipaque 350 intravenous contrast. Sagittal and coronal reformatted images were obtained on the technologist's workstation. Oral contrast: No This CT examination was performed using dose optimization techniques as appropriate, variously including the following: *Automated exposure control *Adjustment of mA and/or kV according to patient size (this includes techniques or standardized protocols for targeted exams where dose is matched to indication/reason for exam; i.e. extremities or head) *Use of iterative reconstruction technique DLP: 639 mGy-cm FINDINGS: LUNG BASES: There is mild bibasilar dependent hypoaeration. LIVER, GALLBLADDER, AND BILIARY TREE: The liver is normal in size, shape and generally diminished in attenuation. No focal hepatic lesion or biliary ductal dilatation is present. The gallbladder is unremarkable with no evidence of radiopaque gallstones, gallbladder wall thickening, or obvious pericholecystic inflammatory changes. PANCREAS: Unremarkable. SPLEEN: Unremarkable. ADRENAL GLANDS: Unremarkable. KIDNEYS AND URETERS: The kidneys are normal in size, shape, and attenuation. No hydronephrosis, hydroureter, or calculi seen. There are benign, simple bilateral renal cysts. These require no imaging follow-up. No perinephric stranding. BLADDER: Unremarkable. GASTROINTESTINAL TRACT: Gastric body wall thickening is questioned, versus pseudothickening from underdistention. There is mild diverticulosis, without acute diverticulitis. No bowel obstruction, free intraperitoneal air or abscess is seen. The vermiform appendix appears to be surgically absent. Please correlate with the patient's past surgical history. No focal bowel wall thickening is seen. ABDOMINAL WALL: There is a small fat-containing umbilical hernia. There are small fat-containing bilateral inguinal hernias, left greater than right. LYMPH NODES: Normal. VASCULAR: There is mild aortoiliac atherosclerotic calcification. No abdominal aortic aneurysm or dissection is seen. PELVIC VISCERA: The prostate and seminal vesicles are unremarkable. OSSEOUS STRUCTURES: There is multi-level marked thoracolumbar spondylosis. No acute or aggressive osseous abnormality is seen. CT/CT abdomen pelvis w IV con IMPRESSION: 1. Gastric wall thickening is questioned, versus pseudothickening from underdistention. This could be more fully evaluated with an upper GI series, if clinically indicated. 2. There is mild diverticulosis, without acute diverticulitis. 3. There is hepatic steatosis. 4. A small fat-containing umbilical hernia defect is seen, and there are small fat-containing bilateral inguinal hernias, left greater than right. 5. There is multi-level marked thoracolumbar spondylosis. No acute or aggressive osseous lesion is seen. Fleischner guidelines were followed.
[2023-09-03] MEDS: iohexoL 350 MG/ML 100 ML INFUS..BTL 85 ML IV (08:52)
[2023-09-03] MEDS: Barium Sulfate Oral (Berry) 450 ML ORAL.SUSP 900 ML PO (08:52)
[2023-09-06 09:19] LABS: Creatinine POC 0.7 mg/dL (0.5-1.4); GFR POC > 60
== END 2023-09-03 05:34 | disposition home or self-care (01) ==
LOC: HO.CT 05:33
PROVIDERS: PCP Nurse Practitioner Family; Visit Provider Nurse Practitioner
DX: R10.9 Unspecified abdominal pain (principal)
CPT/HCPCS: 74177; 82565; Q9967

== ENCOUNTER → 2023-09-15 11:47 | Outpatient (BNVA) | payer OTHER, SELFPAY | PROVIDERS: PCP Nurse Practitioner Family; Visit Provider Nurse Practitioner ==

== ENCOUNTER 2023-09-21 11:00 | Outpatient (AMB) | payer OTHER, SELFPAY ==
--- NOTE | 2023-09-21 11:04 | A.OFFVIS_ITS ---
Vital Signs 09/21/23 11:05 Height 6 ft 2 in Weight 225 lb 4.999 oz BMI 28.9 Intake Visit Reasons: Follow up CT scan Allergies levofloxacin [From LEVAQUIN] Allergy (Intermediate, Verified 08/16/23 15:13) cramps morphine [MORPHINE] Allergy (Mild, Verified 08/16/23 15:13) agitation/hallucinations HPI HPI Follow up CT scan : Details: Assessment & Plan (1) Abdominal pain: Code(s): R10.9 - Unspecified abdominal pain Category: Medical (2) GERD (gastroesophageal reflux disease): Code(s): K21.9 - Gastro-esophageal reflux disease without esophagitis Category: Medical (3) Family history of colon cancer: Comment: Maternal grandmother, last scoped 2019 negative repeat in 5 years Code(s): Z80.0 - Family history of malignant neoplasm of digestive organs Category: Medical (4) Diverticulitis: Code(s): K57.92 - Diverticulitis of intestine, part unspecified, without perforation or abscess without bleeding Category: Medical (5) Hepatitis A antibody positive: Comment: persisted elevated ab over years this only reflects acute infection and here no more antibody testing. This is nonspecific and not use ful here.This is false positive. CHeck Hepatitis A antibody IgG instead on IgM to tell antibodies in future. Code(s): R76.8 - Other specified abnormal immunological findings in serum Category: Medical Plan He improved with the augmentin but w/o complete resolution, but since he completed the course the pain is returning - however, he has not had the very sharp pains. Will re treat with bactim and flagyl (he has a Levaquin allergy). CT upcoming 09/02, scope 12/16 we review all of the results that are available so far and it appears that whatever is going on liver is nothing severe, perhaps some mild RIVERA if the hepatitis a is ruled out, since his transaminases are currently normal on the liver is not enlarged. Referring to ID for persistent elevated Hep A IGM. ROV after 09/02 CT Orders: Referrals Infectious Disease Referral R76.8 - Other specified abnormal immunological findings in serum Medications: New sulfamethoxazole-trimethoprim 800-160 mg (Bactrim DS) 1 tab PO BID 10 tabs 0RF K57.92 - Diverticulitis of intestine, part unspecified, without perforation or abscess without bleeding metronidazole 500 mg PO TID 30 tabs 0[address] ABDOMEN AND PELVIS 09/15/23 FINDINGS: LUNG BASES: There is mild bibasilar dependent hypoaeration. LIVER, GALLBLADDER, AND BILIARY TREE: The liver is normal in size, shape and generally diminished in attenuation. No focal hepatic lesion or biliary ductal dilatation is present. The gallbladder is unremarkable with no evidence of radiopaque gallstones, gallbladder wall thickening, or obvious pericholecystic inflammatory changes. PANCREAS: Unremarkable. SPLEEN: Unremarkable. ADRENAL GLANDS: Unremarkable. KIDNEYS AND URETERS: The kidneys are normal in size, shape, and attenuation. No hydronephrosis, hydroureter, or calculi seen. There are benign, simple bilateral renal cysts. These require no imaging follow-up. No perinephric stranding. BLADDER: Unremarkable. GASTROINTESTINAL TRACT: Gastric body wall thickening is questioned, versus pseudothickening from underdistention. There is mild diverticulosis, without acute diverticulitis. No bowel obstruction, free intraperitoneal air or abscess is seen. The vermiform appendix appears to be surgically absent. Please correlate with the patient's past surgical history. No focal bowel wall thickening is seen. ABDOMINAL WALL: There is a small fat-containing umbilical hernia. There are small fat-containing bilateral inguinal hernias, left greater than right. LYMPH NODES: Normal. VASCULAR: There is mild aortoiliac atherosclerotic calcification. No abdominal aortic aneurysm or dissection is seen. PELVIC VISCERA: The prostate and seminal vesicles are unremarkable. OSSEOUS STRUCTURES: There is multi-level marked thoracolumbar spondylosis. No acute or aggressive osseous abnormality is seen. CT/CT abdomen pelvis w IV con IMPRESSION: 1. Gastric wall thickening is questioned, versus pseudothickening from underdistention. This could be more fully evaluated with an upper GI series, if clinically indicated. 2. There is mild diverticulosis, without acute diverticulitis. 3. There is hepatic steatosis. 4. A small fat-containing umbilical hernia defect is seen, and there are small fat-containing bilateral inguinal hernias, left greater than right. 5. There is multi-level marked thoracolumbar spondylosis. No acute or aggressive osseous lesion is seen. CORRESPONDENCE On 07/22/23 @ 12:19 Yoly Scott Wrote To Patient has requested a results letter as opposed to a follow up appointment. On 07/20/23 @ 09:06 Yoly Scott Wrote To Scheduled patient over the phone. Patient wishes to be sent a results letter. Told patient I would ask his provider and let him know. please advise TODAY'S VISIT [facility] Medical History Encounter for routine adult physical exam with abnormal findings Elevated liver enzymes Post covid-19 condition, unspecified Physical exam GERD (gastroesophageal reflux disease) Elevated cholesterol HTN (hypertension) Pain of cervicothoracic region of spine Cervical stenosis of spinal canal Surgical History Hx of appendectomy History of colonoscopy History of lumbar fusion History of discectomy Family History Father Anxiety Depression Substance use disorder Mother Stroke Asthma Brother Stroke Substance use disorder Brother Liver disease Substance use disorder Daughter Diabetes mellitus Daughter Diabetes mellitus Son Asthma Social History Household Members: Spouse and Children Housing: House Alcohol intake: never Patient Tobacco Use Status: Never used Tobacco e-Cigarette/Vaping Use: Never Used Second Hand Smoke Exposure: No service: No Current occupational status: retired Cognitive needs: No Hearing needs: No Vision needs: No Review of Systems Const Denies fatigue, Denies fever(s), Denies night sweats, Denies poor appetite and Denies weight loss Eyes Reports requires corrective lenses ENT Reports Normal hearing present, Denies dental pain, Denies dysphagia, Denies hearing loss, Denies mouth pain, Denies odynophagia, Denies throat swelling, Denies tongue swelling and Reports other (Dentition adequate) GI Details: Denies abdominal pain, Denies melena, Denies bloating, Denies hematochezia, Denies constipation, Denies GI cramping, Denies dysphagia, Denies excessive flatus, Denies early satiety, Denies heartburn, Denies diarrhea, Denies nausea, Denies odynophagia, Denies vomiting and Denies hematemesis Skin/Breast Denies pruritus, Denies lesions, Denies rash and Denies jaundice Neuro Reports Normal hearing present and Denies Abnormal speech present Endo Denies fatigue Aller/Immun Denies throat swelling and Denies tongue swelling Physical Exam Const General: cooperative, no acute distress, well developed and well groomed Nutritional Appearance: well nourished, obese and overweight Orientation/consciousness: oriented to person, oriented to place and oriented to time Limitations: No language barrier, ambulation with cane, ambulation with walker and wheelchair HEENT Head: Yes normocephalic and Yes atraumatic Eyes General: appearance normal, both eyes and all related structures Pupils: Equal, round and reactive pupils present Neck Neck: Yes normal visual inspection and Yes no lymphadenopathy Thyroid: Thyroid normal Resp Effort & Inspection: normal respiratory effort and able to speak in complete sentences Auscultation: clear to auscultation bilaterally Cardio Rate: regular rate Rhythm: regular rhythm Heart sounds: Normal, physiologic split S2 sound present Peripheral pulses: radial pulses present and posterior tibial pulses present GI Inspection: No distended and No Abdominal panniculus present Palpation (GI): Soft to palpation, nontender, no guarding, not rigid, No hepatosplenomegaly present and Hepatosplenomegaly present Percussion: Yes normal to percussion Auscultation: normal bowel sounds Rectal Exam - Male: Yes deferred Skin General skin exam: no rashes or lesions noted, turgor normal, skin not dry, no jaundice, No spider nevi and no striae Rashes: no rashes Nails: normal Neuro General: oriented to person, oriented to place and oriented to time Cranial nerves: Yes Equal, round and reactive pupils present and Yes Normal hearing present Speech: No Abnormal speech present Extrem General: Yes normal to inspection, No clubbing, No cyanosis and No edema Psych Thought process: Normal thought process present and not confabulating Thought content: Normal thought content present Insight: Good insight present (Psych) Judgement: Good judgement present (Psych) Coding
--- NOTE | 2023-09-21 11:04 | A.OFFVIS_ITS ---
Vital Signs 09/21/23 11:05 Height 6 ft 2 in Weight 225 lb 4.999 oz BMI 28.9 BP 137/70 Blood Pressure Location Rt brachial Position Sitting Pulse 93 Intake Visit Reasons: Follow up CT scan Intake Note: Patient in office today for CT scan results. CC:Patient continues to have lower abdominal pain and on and off constipation or diarrhea. Wardsperson Required: No Accompanied by: Self / Same As Patient Allergies levofloxacin [From LEVAQUIN] Allergy (Intermediate, Verified 09/21/23 11:07) cramps morphine [MORPHINE] Allergy (Mild, Verified 09/21/23 11:07) agitation/hallucinations HPI HPI Follow up CT scan : Details: Assessment & Plan (1) Abdominal pain: Code(s): R10.9 - Unspecified abdominal pain Category: Medical (2) GERD (gastroesophageal reflux disease): Code(s): K21.9 - Gastro-esophageal reflux disease without esophagitis Category: Medical (3) Family history of colon cancer: Comment: Maternal grandmother, last scoped 2018 negative repeat in 5 years Code(s): Z80.0 - Family history of malignant neoplasm of digestive organs Category: Medical (4) Diverticulitis: Code(s): K57.92 - Diverticulitis of intestine, part unspecified, without perforation or abscess without bleeding Category: Medical (5) Hepatitis A antibody positive: Comment: persisted elevated ab over years this only reflects acute infection and here no more antibody testing. This is nonspecific and not use ful here.This is false positive. CHeck Hepatitis A antibody IgG instead on IgM to tell antibodies in future. Code(s): R76.8 - Other specified abnormal immunological findings in serum Category: Medical Plan He improved with the augmentin but w/o complete resolution, but since he completed the course the pain is returning - however, he has not had the very sharp pains. Will re treat with bactim and flagyl (he has a Levaquin allergy). CT upcoming 09/02, scope 12/16 we review all of the results that are available so far and it appears that whatever is going on liver is nothing severe, perhaps some mild RIVERA if the hepatitis a is ruled out, since his transaminases are currently normal on the liver is not enlarged. Referring to ID for persistent elevated Hep A IGM. ROV after 09/02 CT Orders: Referrals Infectious Disease Referral R76.8 - Other specified abnormal immunological findings in serum Medications: New sulfamethoxazole-trimethoprim 800-160 mg (Bactrim DS) 1 tab PO BID 10 tabs 0RF K57.92 - Diverticulitis of intestine, part unspecified, without perforation or abscess without bleeding metronidazole 500 mg PO TID 30 tabs 0[address] ABDOMEN AND PELVIS 09/15/23 FINDINGS: LUNG BASES: There is mild bibasilar dependent hypoaeration. LIVER, GALLBLADDER, AND BILIARY TREE: The liver is normal in size, shape and generally diminished in attenuation. No focal hepatic lesion or biliary ductal dilatation is present. The gallbladder is unremarkable with no evidence of radiopaque gallstones, gallbladder wall thickening, or obvious pericholecystic inflammatory changes. PANCREAS: Unremarkable. SPLEEN: Unremarkable. ADRENAL GLANDS: Unremarkable. KIDNEYS AND URETERS: The kidneys are normal in size, shape, and attenuation. No hydronephrosis, hydroureter, or calculi seen. There are benign, simple bilateral renal cysts. These require no imaging follow-up. No perinephric stranding. BLADDER: Unremarkable. GASTROINTESTINAL TRACT: Gastric body wall thickening is questioned, versus pseudothickening from underdistention. There is mild diverticulosis, without acute diverticulitis. No bowel obstruction, free intraperitoneal air or abscess is seen. The vermiform appendix appears to be surgically absent. Please correlate with the patient's past surgical history. No focal bowel wall thickening is seen. ABDOMINAL WALL: There is a small fat-containing umbilical hernia. There are small fat-containing bilateral inguinal hernias, left greater than right. LYMPH NODES: Normal. VASCULAR: There is mild aortoiliac atherosclerotic calcification. No abdominal aortic aneurysm or dissection is seen. PELVIC VISCERA: The prostate and seminal vesicles are unremarkable. OSSEOUS STRUCTURES: There is multi-level marked thoracolumbar spondylosis. No acute or aggressive osseous abnormality is seen. CT/CT abdomen pelvis w IV con IMPRESSION: 1. Gastric wall thickening is questioned, versus pseudothickening from underdistention. This could be more fully evaluated with an upper GI series, if clinically indicated. 2. There is mild diverticulosis, without acute diverticulitis. 3. There is hepatic steatosis. 4. A small fat-containing umbilical hernia defect is seen, and there are small fat-containing bilateral inguinal hernias, left greater than right. 5. There is multi-level marked thoracolumbar spondylosis. No acute or aggressive osseous lesion is seen. CORRESPONDENCE On 07/22/23 @ 12:19 Yoly Scott Wrote To RussellJoan Patient has requested a results letter as opposed to a follow up appointment. On 07/20/23 @ 09:06 Yoly Scott Wrote To RussellJoan Scheduled patient over the phone. Patient wishes to be sent a results letter. Told patient I would ask his provider and let him know. please advise TODAY'S VISIT He has dull pain in the left suprapubic area - no TICS inflammation on CT, ? radicular pain at low thoracic levels or even the left inguinal hernia. Pt declines referral to surgery. Will see PCP soon and get his opinion as well. At this time he does not really want anymore surgeries which is a course valid so long as his pain is controlled. Stop bentyl as it does not seem to be helping, can resumes prn if needed. ROV 3 mos. [facility] Medical History (Updated 09/21/23 @ 11:21 by NIKITA Morris) Abnormal hepatitis serology Screening PSA (prostate specific antigen) Encounter for routine adult physical exam with abnormal findings Elevated liver enzymes Post covid-19 condition, unspecified Physical exam GERD (gastroesophageal reflux disease) Elevated cholesterol HTN (hypertension) Pain of cervicothoracic region of spine Cervical stenosis of spinal canal Surgical History Hx of appendectomy History of colonoscopy History of lumbar fusion History of discectomy Family History Father Anxiety Depression Substance use disorder Mother Stroke Asthma Brother Stroke Substance use disorder Brother Liver disease Substance use disorder Daughter Diabetes mellitus Daughter Diabetes mellitus Son Asthma Social History Household Members: Spouse and Children Housing: House Alcohol intake: never Patient Tobacco Use Status: Never used Tobacco e-Cigarette/Vaping Use: Never Used Second Hand Smoke Exposure: No service: No Current occupational status: retired Cognitive needs: No Hearing needs: No Vision needs: No Review of Systems Const Denies fatigue, Denies fever(s), Denies night sweats, Denies poor appetite and Denies weight loss ENT Reports Normal hearing present, Denies dental pain, Denies dysphagia, Denies hearing loss, Denies mouth pain, Reports neck pain, Denies odynophagia, Denies throat swelling, Denies tongue swelling and Reports other (Dentition adequate) Card Reports no additional complaints Resp Reports no additional complaints GI Details: Reports abdominal pain, Denies melena, Denies bloating, Denies hematochezia, Denies constipation, Denies GI cramping, Denies dysphagia, Denies excessive flatus, Denies early satiety, Denies heartburn, Denies diarrhea, Denies nausea, Denies odynophagia, Denies vomiting and Denies hematemesis Musc Reports back pain, Reports neck pain, Reports radiating pain into limb and Reports tingling (Hands) Skin/Breast Denies pruritus, Denies lesions, Denies rash and Denies jaundice Neuro Reports Normal hearing present, Denies Abnormal speech present and Reports tingling (Hands) Endo Denies fatigue Aller/Immun Denies throat swelling and Denies tongue swelling Physical Exam Vital Signs: Last Vital Signs Pulse 93 09/21/23 11:05 BP 137/70 09/21/23 11:05 BMI result Body Mass Index 28.9 Const General: cooperative, no acute distress, well developed and well groomed Nutritional Appearance: average body habitus and well nourished Orientation/consciousness: oriented to person, oriented to place and oriented to time Limitations: No language barrier HEENT Head: Yes normocephalic and Yes atraumatic Eyes General: appearance normal, both eyes and all related structures Pupils: Equal, round and reactive pupils present Neck Neck: Yes normal visual inspection and Yes no lymphadenopathy Thyroid: Thyroid normal Resp Effort & Inspection: normal respiratory effort and able to speak in complete sentences Auscultation: clear to auscultation bilaterally Cardio Rate: regular rate Rhythm: regular rhythm Heart sounds: Normal, physiologic split S2 sound present Peripheral pulses: radial pulses present and posterior tibial pulses present GI Inspection: No distended and No Abdominal panniculus present Palpation (GI): Soft to palpation, nontender, no guarding, not rigid and No hepatosplenomegaly present Percussion: Yes normal to percussion Auscultation: normal bowel sounds Rectal Exam - Male: Yes deferred Skin General skin exam: no rashes or lesions noted, turgor normal, skin not dry, no jaundice, No spider nevi and no striae Rashes: no rashes Nails: normal Neuro General: oriented to person, oriented to place and oriented to time Cranial nerves: Yes Equal, round and reactive pupils present and Yes Normal hearing present Speech: No Abnormal speech present Extrem General: Yes normal to inspection, No clubbing, No cyanosis and No edema Psych Appearance: grossly normal and well kempt Mental Status: mental status grossly normal Speech and movement: Normal speech and movement present Affect: normal affect Attitude: cooperative Thought process: Normal thought process present and not confabulating Thought content: Normal thought content present Insight: Fair insight present (Psych) Judgement: Fair judgement present (Psych) Results Reviewed Results Reviewed: CT ABDOMEN AND PELVIS 09/15/23 FINDINGS: LUNG BASES: There is mild bibasilar dependent hypoaeration. LIVER, GALLBLADDER, AND BILIARY TREE: The liver is normal in size, shape and generally diminished in attenuation. No focal hepatic lesion or biliary ductal dilatation is present. The gallbladder is unremarkable with no evidence of radiopaque gallstones, gallbladder wall thickening, or obvious pericholecystic inflammatory changes. PANCREAS: Unremarkable. SPLEEN: Unremarkable. ADRENAL GLANDS: Unremarkable. KIDNEYS AND URETERS: The kidneys are normal in size, shape, and attenuation. No hydronephrosis, hydroureter, or calculi seen. There are benign, simple bilateral renal cysts. These require no imaging follow-up. No perinephric stranding. BLADDER: Unremarkable. GASTROINTESTINAL TRACT: Gastric body wall thickening is questioned, versus pseudothickening from underdistention. There is mild diverticulosis, without acute diverticulitis. No bowel obstruction, free intraperitoneal air or abscess is seen. The vermiform appendix appears to be surgically absent. Please correlate with the patient's past surgical history. No focal bowel wall thickening is seen. ABDOMINAL WALL: There is a small fat-containing umbilical hernia. There are small fat-containing bilateral inguinal hernias, left greater than right. LYMPH NODES: Normal. VASCULAR: There is mild aortoiliac atherosclerotic calcification. No abdominal aortic aneurysm or dissection is seen. PELVIC VISCERA: The prostate and seminal vesicles are unremarkable. OSSEOUS STRUCTURES: There is multi-level marked thoracolumbar spondylosis. No acute or aggressive osseous abnormality is seen. CT/CT abdomen pelvis w IV con IMPRESSION: 1. Gastric wall thickening is questioned, versus pseudothickening from underdistention. This could be more fully evaluated with an upper GI series, if clinically indicated. 2. There is mild diverticulosis, without acute diverticulitis. 3. There is hepatic steatosis. 4. A small fat-containing umbilical hernia defect is seen, and there are small fat-containing bilateral inguinal hernias, left greater than right. 5. There is multi-level marked thoracolumbar spondylosis. No acute or aggressive osseous lesion is seen. Assessment & Plan Assessment & Plan (1) Diverticulitis: Code(s): K57.92 - Diverticulitis of intestine, part unspecified, without perforation or abscess without bleeding Category: Medical (2) Hepatitis A antibody positive: Comment: persisted elevated ab over years this only reflects acute infection and here no more antibody testing. This is nonspecific and not use ful here.This is false positive. CHeck Hepatitis A antibody IgG instead on IgM to tell antibodies in future. Code(s): R76.8 - Other specified abnormal immunological findings in serum Category: Medical (3) Thoracic spondylosis: Code(s): M47.814 - Spondylosis without myelopathy or radiculopathy, thoracic region Category: Medical (4) GERD (gastroesophageal reflux disease): Code(s): K21.9 - Gastro-esophageal reflux disease without esophagitis Category: Medical (5) Irritable bowel syndrome with diarrhea: Code(s): K58.0 - Irritable bowel syndrome with diarrhea Category: Medical (6) Fatty liver: Code(s): K76.0 - Fatty (change of) liver, not elsewhere classified Category: Medical Plan He has dull pain in the left suprapubic area - no TICS inflammation on CT, ? radicular pain at low thoracic levels or even the left inguinal hernia. Pt declines referral to surgery. Will see PCP soon and get his opinion as well. At this time he does not really want anymore surgeries which is a course valid so long as his pain is controlled. Stop bentyl as it does not seem to be helping, can resumes prn if needed. ROV 3 mos. Medications: On Hold dicyclomine Hold Comment: Doctor's Order 20 mg PO QID 30 days 120 tabs 6RF Coding Level of Care Code Est Pt Level 3 (27098) Diagnoses Diverticulitis K57.92 Hepatitis A antibody positive R76.8 Thoracic spondylosis M47.814 GERD (gastroesophageal reflux disease) K21.9 Irritable bowel syndrome with diarrhea K58.0 Fatty liver K76.0
[2023-09-21 11:05] VITALS: BP 137/70; PULSE 93; BMI 28.9
== END 2023-09-21 11:35 | disposition home or self-care (01) ==
PROVIDERS: PCP Nurse Practitioner Family; Visit Provider Nurse Practitioner
DX: K57.92 Diverticulitis of intestine, part unspecified, without perforation or abscess without bleeding (principal); R76.8 Other specified abnormal immunological findings in serum; M47.814 Spondylosis without myelopathy or radiculopathy, thoracic region; K21.9 Gastro-esophageal reflux disease without esophagitis; K58.0 Irritable bowel syndrome with diarrhea; K76.0 Fatty (change of) liver, not elsewhere classified
CPT/HCPCS: 99213

== ENCOUNTER → 2023-09-21 11:00 | Outpatient (BNVA) | payer OTHER, SELFPAY | PROVIDERS: PCP Nurse Practitioner Family; Visit Provider Nurse Practitioner ==

== ENCOUNTER 2023-09-21 15:00 | Outpatient (AMB) | payer OTHER, SELFPAY ==
--- NOTE | 2023-09-21 15:30 | A.OFFPC_ITS ---
Vital Signs 09/21/23 15:32 Height 6 ft 2 in Weight 224 lb BMI 28.8 BP 124/80 Blood Pressure Location Rt brachial Position Sitting Pulse 83 Pulse Source Pulse Oximeter Pulse Oximetry (%) 98 Oxygen Delivery Method Room Air Intake Visit Reasons: 6 Month F/U Urology Referral Intake Note: Patient here to discuss urology referral. Allergies levofloxacin [From LEVAQUIN] Allergy (Intermediate, Verified 09/21/23 16:59) cramps morphine [MORPHINE] Allergy (Mild, Verified 09/21/23 16:59) agitation/hallucinations Medication List - Last Reconciled 09/21/23 by YAMILEX Jacobson-REBEKA amlodipine 5 mg PO DAILY 90 days atorvastatin 10 mg PO BEDTIME dicyclomine 20 mg PO QID 30 days gabapentin 100 mg PO BEDTIME lorazepam 0.5 mg PO BID PRN 30 days multivitamin 1 tab PO DAILY nabumetone 500 mg PO BID 30 days omeprazole 20 mg PO DAILY peg 3350-electrolytes 236-22.74-6.74 -5.86 gram (Golytely) 240 mL PO Q10M 1 day trazodone 100 mg PO BEDTIME 30 days Tobacco use date assessed: 09/21/23 Fall risk assessment: No Falls in past year Last assessed Fall Risk: 09/21/23 Dental Screening Dental Screen Date: 09/21/23 Did you have a dental visit in the last 12 months?: No Did you have a dental problem in the last 6 months where you did not have access to dental care?: No Was dental information given to patient?: Patient has dentist HPI 6 Month F/U Urology Referral HPI Details Dyslipidemia: Pt was on a statin in the past but is no longer taking one. Will send atorvastatin 10mg. Denies chest pain, shortness of breath, headac he, dizziness, and blurred vision. Pt c/o increased fatigue. Will order labs. Pt reports pelvic discomfort (more to the inguinal region). Recent CT showed a small fat-containing umbilical hernia defect is seen, and there are small fat- containing bilateral inguinal hernias, left greater than right. Pt is following up with GI and urology. Fatigue, will order labs. ? possible future sleep study as well [facility] Medical History Abnormal hepatitis serology Screening PSA (prostate specific antigen) Encounter for routine adult physical exam with abnormal findings Elevated liver enzymes Post covid-19 condition, unspecified Physical exam GERD (gastroesophageal reflux disease) Elevated cholesterol HTN (hypertension) Pain of cervicothoracic region of spine Cervical stenosis of spinal canal Surgical History Hx of appendectomy History of colonoscopy History of lumbar fusion History of discectomy Family History Father Anxiety Depression Substance use disorder Mother Stroke Asthma Brother Stroke Substance use disorder Brother Liver disease Substance use disorder Daughter Diabetes mellitus Daughter Diabetes mellitus Son Asthma Social History Household Members: Spouse and Children Housing: House Alcohol intake: never Patient Tobacco Use Status: Never used Tobacco e-Cigarette/Vaping Use: Never Used Second Hand Smoke Exposure: No service: No Current occupational status: retired Cognitive needs: No Hearing needs: No Vision needs: No Questionnaire Thrive Questionnaire Date Thrive assessed: 09/21/23 AUDIT C Alcohol Use Questionnaire (AUDIT-C) 1. How often do you have a drink containing alcohol?: Never 3. How often do you have six or more drinks on one occasion?: Never Total Score: 0 Score Reviewed/Action Taken: No ARELI-7 AMB Questionnaire ARELI-7 Date ARELI - 7 assessed: 04/15/23 Source: Developed by Drs. Darryl Ramirez, Liza Rendon, Basilio Nix and colleagues, with an educational ronda from [employer]. Review of Systems Const Reports as per HPI Physical exam (Primary Care) Vital Signs: Last Vital Signs Pulse 83 09/21/23 15:32 BP 124/80 09/21/23 15:32 Pulse Ox 98 09/21/23 15:32 Oxygen Delivery Method Room Air 09/21/23 15:32 BMI result Body Mass Index 28.8 Tobacco/Smoking Status: Tobacco use Status Tobacco use date assessed 09/21/23 09/21/23 15:35 Patient Tobacco Use Status Never used Tobacco 09/21/23 15:30 e-Cigarette/Vaping Use Never Used 09/21/23 15:30 Thrive Assessment: Date of Thrive Assessment Date Thrive assessed 09/21/23 09/21/23 15:37 Const General: cooperative Orientation/consciousness: patient oriented x3 Resp Effort & Inspection: normal respiratory effort Auscultation: clear to auscultation bilaterally Cardio Rate: regular rate Rhythm: regular rhythm Heart sounds: S1 normal heart sound present and S2 normal heart sound present GI Other: no inguinal hernias palpated Neuro General: patient oriented x3 Psych Appearance: grossly normal Mental Status: mental status grossly normal Speech and movement: Normal speech and movement present Affect: normal affect Attitude: cooperative Thought process: Normal thought process present Thought content: Normal thought content present Insight: Good insight present (Psych) Judgement: Good judgement present (Psych) Assessment and Plan Assessment & Plan (1) Fatigue: Code(s): R53.83 - Other fatigue Plan: Labs ordered (2) Dyslipidemia: Code(s): E78.5 - Hyperlipidemia, unspecified Plan: statin refilled (3) Inguinal hernia bilateral, non-recurrent: Code(s): K40.20 - Bilateral inguinal hernia, without obstruction or gangrene, not specified as recurrent Plan: will cont to monitor. pt reports the discomfort is bearable, no hernias noted on exam. Plan The patient agreed to the use of a medical malpractice paralegal for this encounter. Scribed for FLORINA Elizondo by Hiral Wick medical malpractice paralegal, on 09/21/2023 at 15:40 EST. Orders: Orders Vitamin B12 and Folate Today R53.83 - Other fatigue IRON PROFILE Today R53.83 - Other fatigue Vitamin D 25-OH Total Today R53.83 - Other fatigue Testosterone, Free/Total Today R53.83 - Other fatigue Complete Blood Count Auto Diff Today R53.83 - Other fatigue Ferritin Today R53.83 - Other fatigue TSH reflex Free T4 Today R53.83 - Other fatigue Comprehensive Met. Panel Today R53.83 - Other fatigue Tick-borne Disease Molecular Today R53.83 - Other fatigue Medications: New atorvastatin 10 mg PO BEDTIME 90 tabs 0RF oxycodone Partial Fill upon patient request. 10 mg PO DAILY PRN 14 tabs 0RF pain 14 days Refilled amlodipine 5 mg PO DAILY 90 tabs 5RF 90 days Coding Level of Care Code Est Pt Level 3 (53045) Diagnoses Fatigue R53.83 Dyslipidemia E78.5 Inguinal hernia bilateral, non-recurrent K40.20
[2023-09-21 15:32] VITALS: BP 124/80; PULSE 83; O2SAT 98; BMI 28.8
== END 2023-09-21 15:58 | disposition home or self-care (01) ==
PROVIDERS: PCP Nurse Practitioner Family; Visit Provider Nurse Practitioner Family
DX: R53.83 Other fatigue (principal); E78.5 Hyperlipidemia, unspecified; K40.20 Bilateral inguinal hernia, without obstruction or gangrene, not specified as recurrent
CPT/HCPCS: 99213

== ENCOUNTER 2023-09-28 11:35 | Outpatient (REF) | payer OTHER, SELFPAY ==
[2023-09-28 12:25] LABS: Basophils Percent Auto 0.9 % (0-2); Eosinophils Absolute Auto 0.1 X10*3/uL (0.0-0.4); Eosinophils Percent Auto 1.8 % (0-4); Hematocrit 43.4 % (42.0-52.0); Hemoglobin 15.1 g/dl (14.0-18.0); Imm Gran Abs Auto 0.02 X10*3/uL (0.00-0.03); Imm Gran Pct Auto 0.5 % (0.0-0.4); Lymphocytes Absolute Auto 1.5 X10*3/uL (1.2-4.9); MANUAL DIFF FLAG SCAN; Mean Corpuscular HGB Conc 34.8 g/dl (31.0-36.0); Mean Corpuscular Hemoglobin 30.8 pg (27.0-33.0); Mean Corpuscular Volume 88.6 fL (80.0-98.0); Monocytes Absolute Auto 0.4 X10*3/uL (0.1-1.2); Monocytes Percent Auto 8.8 % (2-11); Neutrophils Absolute Auto 2.4 x10*3/uL (2.0-8.3); PLT CLUMP 1; Red Cell Distribution Width 12.4 % (11.0-16.0); SCAN SMEAR FLAG 1
[2023-09-28 12:48] LABS: Platelet Count 140 X10*3/uL (160-400); White Blood Count 4.4 X10*3/uL (4.8-10.8)
[2023-09-28 12:49] LABS: SLIDE REVIEW VERIFIED
[2023-09-28 13:14] LABS: Alanine Aminotransferase 21 U/L (0-40); Albumin Level 4.2 g/dL (3.5-5.0); Alkaline Phosphatase 78 U/L (39-117); Anion Gap 13 (12-20); Aspartate Amino Transferase 24 U/L (5-37); Bilirubin Total 0.4 mg/dL (0.0-1.0); Blood Urea Nitrogen 14 mg/dL (9-16); Calcium 9.7 mg/dL (8.4-10.2); Carbon Dioxide 24 mmol/L (22-29); Chloride 107 mmol/L (96-108); Estimated Glomerular Filt Rate > 60; Glucose Random 129 mg/dL (60-115); Iron 87 mcg/dL (45-160); Percent Iron Saturation 33 % (15-50); Potassium 3.9 mmol/L (3.3-5.1); Sodium 140 mmol/L (135-145); Total Iron Binding Capacity 260 mcg/dL (228-428); Total Protein 6.9 g/dL (6.5-8.0); Unsaturated Iron Binding 173 ug/dL
[2023-09-28 13:19] LABS: Ferritin 233 ng/mL (20-250); TSH reflex Free T4 0.98 uIU/mL (0.32-4.0); Vitamin D 25-OH Total 39.5 ng/mL (>30)
[2023-09-28 13:28] LABS: Vitamin B12 472 pg/mL (200-900)
[2023-09-28 14:04] LABS: Appearance Urine Clear; Color Urine Yellow; Glucose Urine UA Negative (Negative); Leukocyte Esterase Urine Negative (Negative); Nitrite Urine Negative (Negative); PH 6.5 (5.0-9.0); Urine Blood Negative (Negative); Urine Ketones Negative (Negative); Urine Protein Negative (Neg-Trace)
[2023-09-30 02:14] LABS: A. Phagocytphilium DNA,RT-PCR NOT DETECTED (NOT DETECTED); Babesia Microti DNA, RT-PCR NOT DETECTED (NOT DETECTED); Borrelia Miyamotoi,DNA RT-PCR NOT DETECTED (NOT DETECTED); E.Chaffeensis DNA RT-PCR NOT DETECTED (NOT DETECTED); Lyme(Borrelia ssp)DNA RT-PCR NOT DETECTED (NOT DETECTED)
[2023-10-04 21:58] LABS: Testosterone, Free 47.3 pg/mL (35.0-155.0); Testosterone, Total 623 ng/dL (250-1100)
== END 2023-09-28 11:36 | disposition home or self-care (01) ==
LOC: HO.LAB 11:35
PROVIDERS: PCP Nurse Practitioner Family; Visit Provider Nurse Practitioner Family
DX: R53.83 Other fatigue (principal); R74.8 Abnormal levels of other serum enzymes; E78.5 Hyperlipidemia, unspecified
CPT/HCPCS: 36415; 80053; 81003; 82306; 82607; 82728; 82746; 83540; 84402; 84403; 84443; 85025; 87468; 87469; 87478; 87484; 87798

== ENCOUNTER 2023-11-11 09:30 | Outpatient (REF) | payer OTHER, SELFPAY ==
[2023-11-11 11:56] LABS: PSA,Total (Free>4and<10) 2.25 ng/mL (0.00-4.00)
== END 2023-11-11 09:31 | disposition home or self-care (01) ==
LOC: HO.LAB 09:30
PROVIDERS: PCP Nurse Practitioner Family; Visit Provider Urology
DX: R97.20 Elevated prostate specific antigen [PSA] (principal); Z12.5 Encounter for screening for malignant neoplasm of prostate
CPT/HCPCS: 36415; 84153

== ENCOUNTER 2023-11-17 11:21 | Outpatient (AMB) | payer OTHER, SELFPAY ==
--- NOTE | 2023-11-17 11:21 | MHC.OFFVIS ---
Intake Visit Reasons: 6M Follow Up-PSA/Testo(Set) Intake Note: Patient is Present for Telephone Follow Up PSA/Testosterone Urology Medication: None Antibiotic Allergies: Levofloxacin Blood Thinners: None Allergies levofloxacin [From LEVAQUIN] Allergy (Intermediate, Verified 09/21/23 16:59) cramps morphine [MORPHINE] Allergy (Mild, Verified 09/21/23 16:59) agitation/hallucinations Medication List - Last Reconciled 11/17/23 by Benedict Hardy MD amlodipine 5 mg PO DAILY 90 days atorvastatin 10 mg PO BEDTIME dicyclomine 20 mg PO QID 30 days gabapentin 100 mg PO BEDTIME lorazepam 0.5 mg PO BID PRN 30 days multivitamin 1 tab PO DAILY nabumetone 500 mg PO BID 30 days omeprazole 20 mg PO DAILY oxycodone 10 mg PO DAILY PRN 14 days peg 3350-electrolytes 236-22.74-6.74 -5.86 gram (Golytely) 240 mL PO Q10M 1 day trazodone 100 mg PO BEDTIME 30 days HPI Comments Details: Rafa LINDSEY is a very pleasant male. He is a patient of Dr Sharp. He is seen for the following urologic conditions. 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 Laboratory investigations include 06/06 1.6, 06/07 2.3, 08/06 1.3, 08/07 1.6, 04/09 2.3, 10/09 1.8, 04/10 2.1, 11/09 2.3 T 625 Individualized Prostate Cancer Risk Calculator < 5% high risk, Would like to continue with observation and understands and accepts the risks of a possible delay in diagnosis. Overall symptoms are mild. Therapeutic plan will be continued surveillance. [facility] Medical History Abnormal hepatitis serology Screening PSA (prostate specific antigen) Encounter for routine adult physical exam with abnormal findings Elevated liver enzymes Post covid-19 condition, unspecified Physical exam GERD (gastroesophageal reflux disease) Elevated cholesterol HTN (hypertension) Pain of cervicothoracic region of spine Cervical stenosis of spinal canal Surgical History Hx of appendectomy History of colonoscopy History of lumbar fusion History of discectomy Family History Father Anxiety Depression Substance use disorder Mother Stroke Asthma Brother Stroke Substance use disorder Brother Liver disease Substance use disorder Daughter Diabetes mellitus Daughter Diabetes mellitus Son Asthma Social History Household Members: Spouse and Children Housing: House Alcohol intake: never Patient Tobacco Use Status: Never used Tobacco e-Cigarette/Vaping Use: Never Used Second Hand Smoke Exposure: No service: No Current occupational status: retired Cognitive needs: No Hearing needs: No Vision needs: No Review of Systems Const All systems reviewed & are unremarkable except as noted in HPI and below Reports no additional complaints Resp Reports no additional complaints GI Reports no additional complaints Reports as per HPI Musc Reports no additional complaints Physical Exam Telemedicine evaluation Appropriate responses Regular breathing rate and rhythm HEENT Head: Yes normal to inspection Ears: hearing grossly normal bilaterally Eyes General: appearance normal, both eyes and all related structures Neck Neck: Yes normal visual inspection Chest Chest palpation & inspection: normal inspection of the chest Resp Effort & Inspection: normal respiratory effort and able to speak in complete sentences Telehealth Telehealth Telehealth Platform: [facility] Location of provider rendering services: practice address Location of patient: address on file Patient Identification confirmed using: Name, : Yes Telehealth method: video Patient verbally consented to treatment: Yes Patient verbally consented to billing insurance company: Yes Patient informed of any privacy concerns related to visit: Yes Minutes spent on Phone/Video with Pt.: 15 Assessment & Plan Assessment & Plan (1) Left testicular pain: Code(s): N50.812 - Left testicular pain Category: Medical (2) Left hydrocele: Comment: August 2020 hydrocelectomy Code(s): N43.3 - Hydrocele, unspecified Category: Medical (3) Bladder outlet obstruction: Code(s): N32.0 - Bladder-neck obstruction Category: Medical Plan 12 month follow-up Orders: Orders PSA,Total (Free>4and<10) 11/11/23 R97.20 - Elevated prostate specific antigen [PSA] Prostate Specific Antigen 364 Days N32.0 - Bladder-neck obstruction Patient Instructions: Imaging studies, laboratory and physical exam results were discussed and reviewed in detail. No major barriers to patient understanding were identified. An opportunity to ask questions regarding the treatment plan was provided. All questions were answered. The patient expressed understanding and agreement with the above treatment plan. The patient is aware they should contact our office by phone for worsening of their current condition or the appearance of new urologic symptoms. Compliance is encouraged with any medications and followup testing that is ordered. It is a privilege to participate in the urologic care of your patient. If you have any questions or concerns regarding treatment for the above conditions, or other urologic issues, please do not hesitate to contact me. The office telephone contact is [phone]. This note is constructed using voice recognition software. While every effort has been made to ensure accuracy stallion keeper errors may have been included. Yours sincerely, Dr Benedict Hardy MD, [facility] - Urology Providers of Expert, Compassionate Care for the Genitourinary System Coding Level of Care Code Tele Est Pt Level 3 (52573) Diagnoses Left testicular pain N50.812 Left hydrocele N43.3 Bladder outlet obstruction N32.0
== END 2023-11-17 11:53 | disposition home or self-care (01) ==
LOC: HO.HUSH 11:21
PROVIDERS: PCP Nurse Practitioner Family; Visit Provider Urology
DX: N50.812 Left testicular pain (principal); N43.3 Hydrocele, unspecified; N32.0 Bladder-neck obstruction
CPT/HCPCS: 99213

== ENCOUNTER → 2023-11-17 11:21 | Outpatient (BNVA) | payer OTHER, SELFPAY | PROVIDERS: PCP Nurse Practitioner Family; Visit Provider Urology ==

== ENCOUNTER 2023-12-17 10:25 | Day surgery (SDC) | payer OTHER, SELFPAY ==
--- NOTE | 2023-12-16 11:38 | P.CONAN_ITS ---
Documented by User: Thi Medrano NP 12/16/23 11:39 HPI - Anesthesia Eval Consult details Narrative: 63yo M for Colonoscopy PMFSH Active Problems Active Problems: All Active Problems Inguinal hernia bilateral, non-recurrent (Acute) Thoracic spondylosis (Acute) Hepatitis A antibody positive (Acute) Diverticulitis (Acute) Abdominal pain (Acute) Chronic lower back pain (Acute) Bronchitis (Acute) Increased prostate specific antigen (PSA) velocity (Acute) Fatty liver (Acute) Dyslipidemia (Acute) Bladder outlet obstruction (Acute) Family history of colon cancer (Acute) GERD (gastroesophageal reflux disease) (Acute) Tachycardia (Acute) Eczema (Acute) Left testicular pain (Acute) Fatigue (Acute) Irritable bowel syndrome with diarrhea (Acute) Left hydrocele (Acute) Cervical stenosis of spinal canal (Acute) Past Medical History Medical History Abnormal hepatitis serology Screening PSA (prostate specific antigen) Encounter for routine adult physical exam with abnormal findings Elevated liver enzymes Post covid-19 condition, unspecified Physical exam GERD (gastroesophageal reflux disease) Elevated cholesterol HTN (hypertension) Pain of cervicothoracic region of spine Cervical stenosis of spinal canal Family History Family History Father Anxiety Depression Substance use disorder Mother Stroke Asthma Brother Stroke Substance use disorder Brother Liver disease Substance use disorder Daughter Diabetes mellitus Daughter Diabetes mellitus Son Asthma Surgical History Surgical History Hx of appendectomy History of colonoscopy History of lumbar fusion History of discectomy Social History Social History Household Members: Spouse and Children Housing: House Are you a primary residential child care counselor to a significant other at home: No Do you presently have visiting nurse or other home services: No Alcohol intake: never Patient Tobacco Use Status: Never used Tobacco e-Cigarette/Vaping Use: Never Used Second Hand Smoke Exposure: No Use of substances other than those prescribed or required for medical reasons: Yes Substance Use Type Other:: Edibles Substance Use Frequency: Daily Have you been hit, kicked, punched, or otherwise hurt by someone within the past year? If so, by whom?: No Are you DNR?: No Advance Directives: No Advance Directives Information Provided: Yes Recently lost weight without trying: No How much weight loss: Not applicable Eating poorly because of decreased appetite: No Nutrition screen score: 0 Nutrition Risks: No Nutritional Risk Poor oral hygiene: No service: No Current occupational status: retired Cognitive needs: No Hearing needs: No Vision needs: No Meds Allergies Allergy/AdvReac Type Severity Reaction Status Date / Time levofloxacin [From LEVAQUIN] Allergy Intermediate cramps Verified 12/17/23 10:51 morphine [MORPHINE] Allergy Mild agitation/h Verified 12/17/23 10:51 allucinatio ns Home Medications ?Medication ?Instructions ?Recorded ?Confirmed ?Last Taken ?Type multivitamin 1 tab PO DAILY 09/21/23 12/17/23 Unknown History Assessment and Plan Assessment Anesthesia Assessment: Chart Reviewed Documented by User: Bessy Tello MD 12/17/23 11:16 PMFSH Past Medical History Medical History Abnormal hepatitis serology Screening PSA (prostate specific antigen) Encounter for routine adult physical exam with abnormal findings Elevated liver enzymes Post covid-19 condition, unspecified Physical exam GERD (gastroesophageal reflux disease) Elevated cholesterol HTN (hypertension) Pain of cervicothoracic region of spine Cervical stenosis of spinal canal Family History Family History Father Anxiety Depression Substance use disorder Mother Stroke Asthma Brother Stroke Substance use disorder Brother Liver disease Substance use disorder Daughter Diabetes mellitus Daughter Diabetes mellitus Son Asthma Family history of problems with anesthesia: No Surgical History Surgical History Hx of appendectomy History of colonoscopy History of lumbar fusion History of discectomy History of Problems with Anesthesia: No Social History Social History Household Members: Spouse and Children Housing: House Are you a primary residential child care counselor to a significant other at home: No Do you presently have visiting nurse or other home services: No Alcohol intake: never Patient Tobacco Use Status: Never used Tobacco e-Cigarette/Vaping Use: Never Used Second Hand Smoke Exposure: No Use of substances other than those prescribed or required for medical reasons: Yes Substance Use Type Other:: Edibles Substance Use Frequency: Daily Have you been hit, kicked, punched, or otherwise hurt by someone within the past year? If so, by whom?: No Are you DNR?: No Advance Directives: No Advance Directives Information Provided: Yes Recently lost weight without trying: No How much weight loss: Not applicable Eating poorly because of decreased appetite: No Nutrition screen score: 0 Nutrition Risks: No Nutritional Risk Poor oral hygiene: No service: No Current occupational status: retired Cognitive needs: No Hearing needs: No Vision needs: No Meds Allergies Allergy/AdvReac Type Severity Reaction Status Date / Time levofloxacin [From LEVAQUIN] Allergy Intermediate cramps Verified 12/17/23 10:51 morphine [MORPHINE] Allergy Mild agitation/h Verified 12/17/23 10:51 allucinatio ns Home Medications ?Medication ?Instructions ?Recorded ?Confirmed ?Last Taken ?Type multivitamin 1 tab PO DAILY 09/21/23 12/17/23 Unknown History Exam Airway Mallampati Class: II TM Dist: >3cm Neck ROM: Full Heart: rrr Lungs: cta Assessment and Plan Assessment Anesthesia Assessment: Anesthesia Plan Discussed Final Anesthetic Review Family History of Problems with Anesthesia: No History of Problems with Anesthesia: No NPO: Yes ASA Class: II Final Preanesthetic Review: No Changes in Pt Med Stat, Meds/Allgs Chart Reviewed and Consent Obtained/Reviewed Patient Risk: Low Procedure Risk: Low Anesthetic Plan Anesthetic Plan: MAC: Disposition: Standard PACU
[2023-12-17 10:55] VITALS: BP 148/84; PULSE 84; RESP 16; TEMP 36.9; O2SAT 96; BMI 29.5
--- NOTE | 2023-12-17 11:17 | MHC.SHP ---
Pre-Procedural Eval Section A - 24 Hr Update-Section A only Date of Service: 12/17/23 The patient is an INPATIENT: No The patient has been examined within 24 hours of the surgical procedure. The History & Physical has been completed within 30 days and I have reviewed it.: No Section B - Complete if H&P > 30 days Chief Complaint: screening Relevant Family History (Specify if Yes): Yes Relevant Social History: Tobacco Use Present Medications: see Short Stay Collaborative assessment Medical History: Significant History (Elevated liver enzymes Post covid-19 condition, unspecified Physical exam GERD (gastroesophageal reflux disease) Elevated cholesterol HTN (hypertension) Pain of cervicothoracic region of spine Cervical stenosis of spinal canal) History of Previous Operations: Relevant previous surgery/procedure and date(s) (Hx of appendectomy History of colonoscopy History of lumbar fusion History of discectomy) Allergies: Allergies Allergy/AdvReac Type Severity Reaction Status Date / Time levofloxacin [From LEVAQUIN] Allergy Intermediate cramps Verified 12/17/23 10:51 morphine [MORPHINE] Allergy Mild agitation/h Verified 12/17/23 10:51 allucinatio ns Review of Systems Sugical H&P ROS: Negative: Constitution, Cardiovascular and Respiratory Exam Surgical H&P Exam: Normal: Heart, Normal: Lungs, Normal: Extremities and Normal: Abdomen Plan Diagnosis/Plan: Change (proceed with Colonoscopy) I have reviewed the history and physical and performed a pertinent physical examination on my patient. No changes have occurred unless specified. Time Spent With Patient Time: Total time managing care of this patient today ____ minutes.
[2023-12-17] MEDS: Lactated Ringers 1,000 ML 100 ML IVCONT (11:27)
[2023-12-17 11:52] VITALS: BP 100/59; PULSE 67; RESP 16; TEMP 36.6; O2SAT 94
--- NOTE | 2023-12-17 11:53 | HO.OPN-COLON ---
Colonoscopy Operative Note Operative Note Date of Service: 12/17/23 Narrative: COLONOSCOPY TILL CECUM WITH WITH BIOPSIES AND SNARE POLYPECTOMY Pre-op diagnosis: Colon cancer screening, family history of colon cancer (GM in her 60's). Post-op diagnosis:? Colon polyp, Diverticulosis, hemorrhoids Endoscopist:? Luna Tate MD Anesthesia:?MAC Consent: Indications for the procedure and potential complications of bleeding, perforation, reaction to medications and missed diagnosis were discussed with the patient and informed consent was obtained. Instrument: Olympus CF H 190 L variable stiffness adult colonoscope Monitoring: Vital signs and clinical assessment, intermittent blood pressure monitoring, continuous EKG monitoring, Pulse oximetry and Carbon Dioxide monitoring were done throughout the procedure. Please see anesthesia flowsheet. Colon withdrawl time was 12 minutes. Procedure: The patient was placed in the left lateral decubitis position and pre-procedure medications were administered. After a digital rectal examination of the ano-rectum, the video colonoscope was inserted into the rectum and advanced through the colon to the cecum. The colonoscope was slowly withdrawn in a retrograde panoramic fashion and the colon mucosa was carefully examined including a retroflexed view of the rectum. Findings and interventions are described below. Procedure Difficulty: without difficulty Findings: Terminal Ileum: Not evaluated Cecum: Normal Ascending Colon: Moderate diverticulosis throughout the entire colon Transverse Colon: A 7-8 mm sessile polyp in the proximal TC - removed with a cold snare Moderate diverticulosis throughout the entire colon Descending Colon: Moderate diverticulosis Sigmoid Colon: Severe diverticulosis with minimal patchy erythema - random biopsies were obtained Rectum: Normal Ano-rectum: Small internal hemorrhoids Colon preparation: Excellent, [place] Bowel Preparation Scale Right colon; 3 Transverse colon: 3 Left colon; 3 (0 = Unprepared colon segment with mucosa not seen due to solid stool that cannot be cleared. 1 = Portion of mucosa of the colon segment seen, but other areas of the colon segment not well seen due to staining, residual stool and/or opaque liquid. 2 = Minor amount of residual staining, small fragments of stool and/or opaque liquid, but mucosa of colon segment seen well. 3 = Entire mucosa of colon segment seen well with no residual staining, small fragments of stool or opaque liquid) Impression and Post Procedure Diagnosis: Colonoscopy Findings: One small polyp was removed Moderate diverticulosis seen in the entire colon (left > right) small hemorrhoids on retroflexed exam. Plan: I will send a letter with biopsy results. Pt has a FU appointment on 12/28/23 with Joan Wells NP Repeat Colonoscopy in 5 years if polyps are adenomatous and 10 year if polyps are hyperplastic. Above findings were reviewed with the patient and relevant handouts were given and the discharge area.
[2023-12-17 12:07] VITALS: BP 114/69; PULSE 65; RESP 18; TEMP 36.6; O2SAT 94
== END 2023-12-17 12:29 | disposition home or self-care (01) ==
PROVIDERS: PCP Nurse Practitioner Family; Visit Provider Internal Medicine Gastroenterology
PROC: 0DJD8ZZ Inspection of Lower Intestinal Tract, Via Natural or Artificial Opening Endoscopic (ICD-10-PCS; CPT 45378; principal; 2023-12-17 12:00)
DX: Z12.11 Encounter for screening for malignant neoplasm of colon (principal); K63.5 Polyp of colon; K57.30 Diverticulosis of large intestine without perforation or abscess without bleeding; K64.8 Other hemorrhoids; K58.0 Irritable bowel syndrome with diarrhea; K76.0 Fatty (change of) liver, not elsewhere classified; K21.9 Gastro-esophageal reflux disease without esophagitis; Z87.19 Personal history of other diseases of the digestive system; R76.8 Other specified abnormal immunological findings in serum; I10 Essential (primary) hypertension; E78.00 Pure hypercholesterolemia, unspecified; Z88.1 Allergy status to other antibiotic agents; Z88.5 Allergy status to narcotic agent; Z98.890 Other specified postprocedural states
CPT/HCPCS: 45385; 45380; 88305; J2704

== ENCOUNTER → 2023-12-17 10:25 | Outpatient (BNV) | payer OTHER, SELFPAY | PROVIDERS: PCP Nurse Practitioner Family; Visit Provider Internal Medicine Gastroenterology | DX: Z12.11 Encounter for screening for malignant neoplasm of colon (principal); Z80.0 Family history of malignant neoplasm of digestive organs; K63.5 Polyp of colon; K57.90 Diverticulosis of intestine, part unspecified, without perforation or abscess without bleeding; K64.8 Other hemorrhoids | CPT/HCPCS: 45380; 45385 ==

== ENCOUNTER 2023-12-28 10:45 | Outpatient (AMB) | payer OTHER, SELFPAY ==
[2023-12-28 10:50] VITALS: BP 127/65; PULSE 91
--- NOTE | 2023-12-28 10:50 | MHC.OFFVIS ---
Vital Signs 12/28/23 10:50 Height 6 ft 2 in Weight 233 lb 11.04 oz BMI 30.0 BP 127/65 Blood Pressure Location Rt brachial Position Sitting Pulse 91 Intake Visit Reasons: s/p colonoscopy Intake Note: Rafa presents to in office follow up s/p colonoscopy. CC: Patient reports lower abdominal pain for about a week after his colonoscopy that he believes is from his hernias. He reports that the pain has subsided and is now the usual dull pain that he usually has. Client Delivery Specialist Required: No Accompanied by: Self / Same As Patient Allergies levofloxacin [From LEVAQUIN] Allergy (Intermediate, Verified 12/28/23 12:58) cramps morphine [MORPHINE] Allergy (Mild, Verified 12/28/23 12:58) agitation/hallucinations HPI HPI s/p colonoscopy: Details: Assessment & Plan (1) Diverticulitis: Code(s): K57.92 - Diverticulitis of intestine, part unspecified, without perforation or abscess without bleeding Category: Medical (2) Hepatitis A antibody positive: Comment: persisted elevated ab over years this only reflects acute infection and here no more antibody testing. This is nonspecific and not use ful here.This is false positive. CHeck Hepatitis A antibody IgG instead on IgM to tell antibodies in future. Code(s): R76.8 - Other specified abnormal immunological findings in serum Category: Medical (3) Thoracic spondylosis: Code(s): M47.814 - Spondylosis without myelopathy or radiculopathy, thoracic region Category: Medical (4) GERD (gastroesophageal reflux disease): Code(s): K21.9 - Gastro-esophageal reflux disease without esophagitis Category: Medical (5) Irritable bowel syndrome with diarrhea: Code(s): K58.0 - Irritable bowel syndrome with diarrhea Category: Medical (6) Fatty liver: Code(s): K76.0 - Fatty (change of) liver, not elsewhere classified Category: Medical Plan He has dull pain in the left suprapubic area - no TICS inflammation on CT, ? radicular pain at low thoracic levels or even the left inguinal hernia. Pt declines referral to surgery. Will see PCP soon and get his opinion as well. At this time he does not really want anymore surgeries which is a course valid so long as his pain is controlled. Stop bentyl as it does not seem to be helping, can resumes prn if needed. ROV 3 mos. Medications: On Hold dicyclomine Hold Comment: Doctor's Order 20 mg PO QID 30 days 120 tabs 6RF COLONOSCOPY 12/17/23 Findings: Terminal Ileum: Not evaluated Cecum: Normal Ascending Colon: Moderate diverticulosis throughout the entire colon Transverse Colon: A 7-8 mm sessile polyp in the proximal TC - removed with a cold snare Moderate diverticulosis throughout the entire colon Descending Colon: Moderate diverticulosis Sigmoid Colon: Severe diverticulosis with minimal patchy erythema - random biopsies were obtained Rectum: Normal Ano-rectum: Small internal hemorrhoids Impression and Post Procedure Diagnosis: Colonoscopy Findings: One small polyp was removed Moderate diverticulosis seen in the entire colon (left > right) small hemorrhoids on retroflexed exam. Plan: I will send a letter with biopsy results. Pt has a FU appointment on 12/28/23 with Joan Wells NP Repeat Colonoscopy in 5 years if polyps are adenomatous and 10 year if polyps are hyperplastic. Received: 12/17/23 Diagnosis A. Colon, transverse, polypectomy: Colonic mucosa with prominent lymphoid aggregate. B. Colon, sigmoid, biopsy: Colonic mucosa within normal limits; negative for microscopic colitis CORRESPONDENCE On 12/24/23 @ 13:55 Joan Wells Wrote To Joan Wells (2) Ok, then no problem! On 12/24/23 @ 13:13 Cornelia Medina Wrote To Joan Wells Patient would like to keep appointment to discuss medications for his stomach he states is bothering him. On 12/23/23 @ 15:14 Wells Wrote To Cornelia Medina This pt requested a follow up letter rather than a post colonoscopy appt - I believe Dr. Tate sent the letter. You may want to call the pt and see if he wants the appt, or if her received the letter. On 07/22/23 @ 12:19 Yoly Scott Wrote To Patient has requested a results letter as opposed to a follow up appointment. On 07/20/23 @ 09:06 Yoly Scott Wrote To Scheduled patient over the phone. Patient wishes to be sent a results letter. Told patient I would ask his provider and let him know. please advise TODAY'S VISIT He is agreeable to a 5 year follow up. The procedure was well tolerated. The results were explained and the patient is agreeable to the follow-up interval as stated. The bowel pattern has returned to normal. Education was provided to tell any 1st degree relatives about their findings to be sure that they are screened by age 45. Educated that they will be put on a recall list when it is time for their repeat scope but should they move out of state or away from the hospital they will need to remember along with their primary to repeat the procedure in a timely fashion to avoid any adverse complications. Apparently he kept the appointment because he had an episode of dyspepsia that may have been a viral gastroenteritis since resolved without treatment before he get to see me. He continues on his omeprazole with good control of his GERD. He is agreeable to six-month follow-up. [facility] Medical History Abnormal hepatitis serology Screening PSA (prostate specific antigen) Encounter for routine adult physical exam with abnormal findings Elevated liver enzymes Post covid-19 condition, unspecified Physical exam GERD (gastroesophageal reflux disease) Elevated cholesterol HTN (hypertension) Pain of cervicothoracic region of spine Cervical stenosis of spinal canal Surgical History Hx of appendectomy History of colonoscopy History of lumbar fusion History of discectomy Family History Father Anxiety Depression Substance use disorder Mother Stroke Asthma Brother Stroke Substance use disorder Brother Liver disease Substance use disorder Daughter Diabetes mellitus Daughter Diabetes mellitus Son Asthma Social History Household Members: Spouse and Children Housing: House Are you a primary care aid to a significant other at home: No Do you presently have visiting nurse or other home services: No Alcohol intake: never Patient Tobacco Use Status: Never used Tobacco e-Cigarette/Vaping Use: Never Used Second Hand Smoke Exposure: No service: No Current occupational status: retired Cognitive needs: No Hearing needs: No Vision needs: No Review of Systems Const Denies fatigue, Denies fever(s), Denies night sweats, Denies poor appetite and Denies weight loss ENT Reports Normal hearing present, Denies dental pain, Denies dysphagia, Denies hearing loss, Denies mouth pain, Denies odynophagia, Denies throat swelling, Denies tongue swelling and Reports other (Dentition adequate) Card Reports no additional complaints Resp Reports no additional complaints GI Details: Denies abdominal pain, Denies melena, Denies bloating, Denies hematochezia, Denies constipation, Denies GI cramping, Denies dysphagia, Denies excessive flatus, Denies early satiety, Reports dyspepsia, Reports heartburn, Denies diarrhea, Denies nausea, Denies odynophagia, Denies vomiting and Denies hematemesis Skin/Breast Denies pruritus, Denies lesions, Denies rash and Denies jaundice Neuro Reports Normal hearing present and Denies Abnormal speech present Endo Denies fatigue Aller/Immun Denies throat swelling and Denies tongue swelling Physical Exam Vital Signs: Last Vital Signs Pulse 91 12/28/23 10:50 BP 127/65 12/28/23 10:50 BMI result Body Mass Index 30.0 Const General: cooperative, no acute distress, well developed and well groomed Nutritional Appearance: well nourished and obese Orientation/consciousness: oriented to person, oriented to place and oriented to time Limitations: No language barrier HEENT Head: Yes normocephalic and Yes atraumatic Eyes General: appearance normal, both eyes and all related structures Pupils: Equal, round and reactive pupils present Neck Neck: Yes normal visual inspection and Yes no lymphadenopathy Thyroid: Thyroid normal Resp Effort & Inspection: normal respiratory effort and able to speak in complete sentences Auscultation: clear to auscultation bilaterally Cardio Rate: regular rate Rhythm: regular rhythm Heart sounds: Normal, physiologic split S2 sound present Peripheral pulses: radial pulses present and posterior tibial pulses present GI Inspection: No distended, No Abdominal panniculus present and Yes obesity Palpation (GI): Soft to palpation, nontender, no guarding, not rigid and No hepatosplenomegaly present Percussion: Yes normal to percussion Auscultation: normal bowel sounds Rectal Exam - Male: Yes deferred Skin General skin exam: no rashes or lesions noted, turgor normal, skin not dry, no jaundice, No spider nevi and no striae Rashes: no rashes Nails: normal Neuro General: oriented to person, oriented to place and oriented to time Cranial nerves: Yes Equal, round and reactive pupils present and Yes Normal hearing present Speech: No Abnormal speech present Extrem General: Yes normal to inspection, No clubbing, No cyanosis and No edema Psych Appearance: grossly normal and well kempt Mental Status: mental status grossly normal Speech and movement: Normal speech and movement present Affect: normal affect Attitude: cooperative Thought process: Normal thought process present and not confabulating Thought content: Normal thought content present Insight: Limited insight present (Psych) Judgement: Limited judgement present (Psych) Results Reviewed Results Reviewed: COLONOSCOPY 12/17/23 Findings: Terminal Ileum: Not evaluated Cecum: Normal Ascending Colon: Moderate diverticulosis throughout the entire colon Transverse Colon: A 7-8 mm sessile polyp in the proximal TC - removed with a cold snare Moderate diverticulosis throughout the entire colon Descending Colon: Moderate diverticulosis Sigmoid Colon: Severe diverticulosis with minimal patchy erythema - random biopsies were obtained Rectum: Normal Ano-rectum: Small internal hemorrhoids Impression and Post Procedure Diagnosis: Colonoscopy Findings: One small polyp was removed Moderate diverticulosis seen in the entire colon (left > right) small hemorrhoids on retroflexed exam. Plan: I will send a letter with biopsy results. Pt has a FU appointment on 12/28/23 with Joan Wells NP Repeat Colonoscopy in 5 years if polyps are adenomatous and 10 year if polyps are hyperplastic. Received: 12/17/23 Diagnosis A. Colon, transverse, polypectomy: Colonic mucosa with prominent lymphoid aggregate. B. Colon, sigmoid, biopsy: Colonic mucosa within normal limits; negative for microscopic colitis Assessment & Plan Assessment & Plan (1) GERD (gastroesophageal reflux disease): Code(s): K21.9 - Gastro-esophageal reflux disease without esophagitis Category: Medical (2) Family history of colon cancer: Comment: Maternal grandmother, last scoped 2019 negative repeat in 5 years Code(s): Z80.0 - Family history of malignant neoplasm of digestive organs Category: Medical (3) Irritable bowel syndrome with diarrhea: Code(s): K58.0 - Irritable bowel syndrome with diarrhea Category: Medical Plan He is agreeable to a 5 year follow up. The procedure was well tolerated. The results were explained and the patient is agreeable to the follow-up interval as stated. The bowel pattern has returned to normal. Education was provided to tell any 1st degree relatives about their findings to be sure that they are screened by age 45. Educated that they will be put on a recall list when it is time for their repeat scope but should they move out of state or away from the hospital they will need to remember along with their primary to repeat the procedure in a timely fashion to avoid any adverse complications. Apparently he kept the appointment because he had an episode of dyspepsia that may have been a viral gastroenteritis since resolved without treatment before he get to see me. He continues on his omeprazole with good control of his GERD. He is agreeable to six-month follow-up. Medications: Refilled omeprazole 20 mg PO DAILY 90 caps 1RF On Hold dicyclomine Hold Comment: Doctor's Order 20 mg PO QID 30 days 120 tabs 6RF Coding Level of Care Code Est Pt Level 3 (97518) Diagnoses GERD (gastroesophageal reflux disease) K21.9 Family history of colon cancer Z80.0 Irritable bowel syndrome with diarrhea K58.0
== END 2023-12-28 11:23 | disposition home or self-care (01) ==
PROVIDERS: PCP Nurse Practitioner Family; Visit Provider Nurse Practitioner
DX: K21.9 Gastro-esophageal reflux disease without esophagitis (principal); Z80.0 Family history of malignant neoplasm of digestive organs; K58.0 Irritable bowel syndrome with diarrhea
CPT/HCPCS: 99213

== ENCOUNTER → 2023-12-28 10:45 | Outpatient (BNVA) | payer OTHER, SELFPAY | PROVIDERS: PCP Nurse Practitioner Family; Visit Provider Nurse Practitioner ==

== ENCOUNTER 2023-12-28 12:39 | Outpatient (AMB) | payer OTHER, SELFPAY ==
[2023-12-28 12:46] VITALS: BP 124/82; PULSE 106; TEMP 36.9; O2SAT 98; BMI 30.2
--- NOTE | 2023-12-28 12:46 | MHC.OFFWIV ---
Intake Vital Signs 12/28/23 12:46 Height 6 ft 2 in Weight 235 lb BMI 30.2 BP 124/82 Blood Pressure Location Lt brachial Position Sitting Pulse 106 H Pulse Source Pulse Oximeter Temp 98.5 F Temp Source Oral Pulse Oximetry (%) 98 Oxygen Delivery Method Room Air Intake Visit Reasons: EP Fall, back/rib pain Intake Note: pt c/o back and rib pain. Fell on 12/18. Patient Tobacco Use Status: Never used Tobacco Allergies levofloxacin [From LEVAQUIN] Allergy (Intermediate, Verified 12/28/23 12:58) cramps morphine [MORPHINE] Allergy (Mild, Verified 12/28/23 12:58) agitation/hallucinations Do you need a note to return to daycare/school/sports/work: No HPI HPI Comments History of Present Illness Details Patient is a 63-year-old male who sustained a fall from a 6 ft wall 9 days ago. He states he was trimming bushes with his and the weeds got caught up in his feet and he fell off the wall hit his left side of his head onto the brick wall and then the left side of his body on the ground. He states he has been taking Aleve with minimal effect and muscle relaxers before bed with minimal effect. He states he has been trying to rest but the pain isn't going away. He tells me he has a history of multiple lumbar spine surgeries. He denies any loss of control of his bladder or bowels, he denies losing consciousness when his hit his head, he denies being on a blood thinner, he denies any dizziness or headaches or changes in his hearing. He endorses some left-sided jaw pain but has been chewing with no problem he denies any tooth pain. [facility] Medical History Abnormal hepatitis serology Screening PSA (prostate specific antigen) Encounter for routine adult physical exam with abnormal findings Elevated liver enzymes Post covid-19 condition, unspecified Physical exam GERD (gastroesophageal reflux disease) Elevated cholesterol HTN (hypertension) Pain of cervicothoracic region of spine Cervical stenosis of spinal canal Surgical History Hx of appendectomy History of colonoscopy History of lumbar fusion History of discectomy Family History Father Anxiety Depression Substance use disorder Mother Stroke Asthma Brother Stroke Substance use disorder Brother Liver disease Substance use disorder Daughter Diabetes mellitus Daughter Diabetes mellitus Son Asthma Social History Household Members: Spouse and Children Housing: House Are you a primary resident care director to a significant other at home: No Do you presently have visiting nurse or other home services: No Alcohol intake: never Patient Tobacco Use Status: Never used Tobacco e-Cigarette/Vaping Use: Never Used Second Hand Smoke Exposure: No service: No Current occupational status: retired Cognitive needs: No Hearing needs: No Vision needs: No Review of Systems Const All systems reviewed & are unremarkable except as noted in HPI and below Physical Exam Vital Signs: Last Vital Signs Temp 98.5 F 12/28/23 12:46 Pulse 106 H 12/28/23 12:46 BP 124/82 12/28/23 12:46 Pulse Ox 98 12/28/23 12:46 Oxygen Delivery Method Room Air 12/28/23 12:46 BMI result Body Mass Index 30.2 Const General: cooperative, healthy appearing, comfortable, no acute distress and well developed Orientation/consciousness: patient oriented x3 Limitations: no limitations HEENT Head: Yes normal to inspection Ears: hearing grossly normal bilaterally General nose exam: Normal external nose present Face and sinus: Yes normal facial exam Eyes General: appearance normal, both eyes and all related structures Neck Neck: Yes normal visual inspection and Yes full ROM Resp Effort & Inspection: normal respiratory effort and able to speak in complete sentences Back/Spine/Pelvis Other: Left upper shoulder has yellowish, 3 cm round skin discoloration. Cervical Spine: cervical ROM normal, No cervical muscular tenderness, No pain with cervical ROM, No Cervical spine tenderness and No step off deformity Thoracic/Lumbar Spine: thoracic and lumbar spine normal to inspection, Thoracic/lumbar spine scar(s), pain with thoraco-lumbar ROM, paraspinal muscle tenderness, thoraco-lumbar ROM limited (low thoracic, not lumbar pain) with rotation to the right and with rotation to the left, No thoraco-lumbar spasm, No thoracic spinal tenderness and No lumbar spinal tenderness Skin General skin exam: no rashes or lesions noted Neuro General: patient oriented x3 Extrem General: Yes normal to inspection Left upper extremity: shoulder/upper arm Details: inspection abnormal, normal ROM and ecchymosis shoulder posterior ; no tenderness, no swelling, no abrasions and no lacerations Assessment & Plan Assessment & Plan (1) Fall: Code(s): W19.XXXA - Unspecified fall, initial encounter Qualifiers: Encounter type: initial encounter Qualified Code(s): W19.XXXA - Unspecified fall, initial encounter Plan: Recommended patient use Aleve around the clock for the next 3-4 days as well as a muscle relaxer as needed. Gave warnings to not take the muscle relaxer while he is driving a car, operating heavy machinery or drinking alcohol. Also recommended using [id number] patches such as Salonpas or similar with heat, lidocaine. Also recommended trying Voltaren gel, heat or ice. If no improvement in symptoms, he should follow up with his PCP. Plan See above Orders: Orders XR thoracic spine 3V Today W19.XXXA - Unspecified fall, initial encounter XR lumbar spine 2-3V Today W19.XXXA - Unspecified fall, initial encounter Coding Level of Care Code Est Pt Level 4 (68187) Diagnoses Fall, initial encounter W19.XXXA Encounter type: initial encounter
== END 2023-12-28 13:46 | disposition home or self-care (01) ==
PROVIDERS: PCP Nurse Practitioner Family; Visit Provider Physician Assistant
DX: R07.82 Intercostal pain (principal); W19.XXXA Unspecified fall, initial encounter
CPT/HCPCS: 99214

== ENCOUNTER 2023-12-28 13:42 | Outpatient (REF) | payer OTHER, SELFPAY ==
--- NOTE | ~2023-12-28 | XR_ITS ---
EXAMINATION: XR LUMBOSACRAL SPINE CLINICAL INFORMATION: Fall. COMPARISON: None available. TECHNIQUE: Three views of the lumbosacral spine. FINDINGS: Examination demonstrates moderate severe multilevel disc and facet degenerative change. No spondylolysis or spondylolisthesis is seen. Vertebral body heights and alignment appear maintained. No lytic or sclerotic bony lesion is seen. The paraspinal soft tissues appear unremarkable. Surgical clips project over the right lower quadrant. XR/XR lumbar spine 2-3V IMPRESSION: Degenerative change. Electronically signed by: Abdon Kothari MD 12/28/2023 04:53 PM EDT
--- NOTE | ~2023-12-28 | XR_ITS ---
EXAMINATION: XR THORACIC SPINE CLINICAL INFORMATION: Fall. COMPARISON: None available. TECHNIQUE: 3 views of the thoracic spine were obtained. FINDINGS: Mild multilevel thoracic discogenic degenerative change. Mild thoracic spinal curvature. Vertebral body heights and alignment appear maintained. No lytic or sclerotic bony lesion is seen. The paraspinal soft tissues appear unremarkable. XR/XR thoracic spine 3V IMPRESSION: No acute finding. Mild degenerative change. Electronically signed by: Abdon Kothari MD 12/28/2023 04:54 PM EDT
== END 2023-12-28 13:43 | disposition home or self-care (01) ==
LOC: HO.HMGCX 13:42
PROVIDERS: PCP Nurse Practitioner Family; Visit Provider Physician Assistant
DX: M54.6 Pain in thoracic spine (principal); M54.50 Low back pain, unspecified; Z91.81 History of falling
CPT/HCPCS: 72072; 72100

== ENCOUNTER 2024-01-25 10:22 | Outpatient (AMB) | payer OTHER, SELFPAY ==
[2024-01-25 10:28] VITALS: BP 124/74; PULSE 86; O2SAT 98; BMI 30.3
--- NOTE | 2024-01-25 10:28 | MHC.PC.OV ---
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 Attendant Required: No Accompanied by: Self / Same As Patient Allergies levofloxacin [From LEVAQUIN] Allergy (Intermediate, Verified 01/25/24 10:28) cramps morphine [MORPHINE] Allergy (Mild, Verified 01/25/24 10:28) agitation/hallucinations Tobacco use date assessed: 01/25/24 Fall risk assessment: 1 Fall in past year Last assessed Fall Risk: 01/25/24 Dental Screening Dental Screen Date: 01/25/24 Did you have a dental visit in the last 12 months?: No Did you have a dental problem in the last 6 months where you did not have access to dental care?: No Was dental information given to patient?: Patient has dentist HPI 4 Month F/U HPI Details pt reports having memory issues lately. Has trouble remembering names especially. He denies any dizziness, new onset blurred vision, N/V, CP, or SOB. He has not had any imaging of his head/brain. He reports his family notices a difference in his memory loss as well [facility] Medical History Abnormal hepatitis serology Screening PSA (prostate specific antigen) Encounter for routine adult physical exam with abnormal findings Elevated liver enzymes Post covid-19 condition, unspecified Physical exam GERD (gastroesophageal reflux disease) Elevated cholesterol HTN (hypertension) Pain of cervicothoracic region of spine Cervical stenosis of spinal canal Surgical History Hx of appendectomy History of colonoscopy History of lumbar fusion History of discectomy Family History Father Anxiety Depression Substance use disorder Mother Stroke Asthma Brother Stroke Substance use disorder Brother Liver disease Substance use disorder Daughter Diabetes mellitus Daughter Diabetes mellitus Son Asthma Social History Household Members: Spouse and Children Housing: House Are you a primary child care worker to a significant other at home: No Do you presently have visiting nurse or other home services: No Alcohol intake: never Patient Tobacco Use Status: Never used Tobacco e-Cigarette/Vaping Use: Never Used Second Hand Smoke Exposure: No service: No Current occupational status: retired Cognitive needs: No Hearing needs: No Vision needs: No Questionnaire PHQ-9 Over the last 2 weeks, how often have you been bothered by any of the following problems? 1. Little interest or pleasure in doing things: several days 2. Feeling down, depressed, or hopeless: several days 3. Trouble falling or staying asleep, or sleeping too much: several days 4. Feeling tired or having little energy: several days 5. Poor appetite or overeating: not at all 6. Feeling bad about yourself - or that you are a failure or have let yourself or your family down: not at all 7. Trouble concentrating on things, such as reading the newspaper or watching television: several days 8. Moving or speaking so slowly that other people could have noticed. Or the opposite - being so fidgety or restless that you have been moving around a lot more than usual: several days 9. Thoughts that you would be better off or of hurting yourself in some way: not at all Total score: 6 Depression Screening Interpretation: Negative Depression Screening Done: Yes 04734 - PHQ-9 Billing: Yes Source: Developed by Drs. Darryl Ramirez, Liza Rendon, Basilio Nix and colleagues, with an educational ronda from [employer]. Thrive Questionnaire Date Thrive assessed: 01/25/24 I am a: Patient What is your living situation today?: I have a steady place to live Within the past 12 months, did the food you bought not last and you didn't have the money to get more?: Never true Within the past 12 months, did you worry whether your food would run out before you got money to buy more?: Never true Do you have trouble paying for medicines?: No Do you have trouble getting transportation to medical appointments?: No Do you have trouble paying your heating and electricity bill?: No Do you have trouble taking care of your child, family member or friend?: No Do you have trouble with day-to-day activities such as bathing, preparing meals, shopping, managing finances, etc.?: No Are you interested in more education?: No Please select the resources that you would like help with: None Currently or been in a relationship where the following occur: I choose not to answer THRIVE Score: 0 AUDIT C Alcohol Use Questionnaire (AUDIT-C) 1. How often do you have a drink containing alcohol?: Never 3. How often do you have six or more drinks on one occasion?: Never Total Score: 0 Score Reviewed/Action Taken: Yes ARELI-7 AMB Questionnaire ARELI-7 Date ARELI - 7 assessed: 01/25/24 Feeling nervous, anxious, or on edge: 0 = Not at all Not being able to stop or control worryin = Not at all Worrying too much about different things: 1 = Several days Trouble relaxin = Not at all Being so restless that it is hard to sit still: 0 = Not at all Becoming easily annoyed or irritable: 0 = Not at all Feeling afraid as if something awful might happen: 0 = Not at all Total ARELI-7 score (0-4 normal; 5-9 mild; 10-14 moderate; 15-21 severe): 1 Source: Developed by Drs. Darryl Ramirez, Liza Rendon, Basilio Nix and colleagues, with an educational ronda from [employer]. ARELI-7 Assessment Billing ARELI-7 Assessment Tool: ARELI-7 Assessment 81897 Physical exam (Primary Care) Vital Signs: Last Vital Signs Pulse 86 01/25/24 10:28 BP 124/74 01/25/24 10:28 Pulse Ox 98 01/25/24 10:28 BMI result Body Mass Index 30.3 Tobacco/Smoking Status: Tobacco use Status Tobacco use date assessed 01/25/24 01/25/24 10:44 Patient Tobacco Use Status Never used Tobacco 01/25/24 10:29 e-Cigarette/Vaping Use Never Used 01/25/24 10:29 PHQ-9: PHQ-9 Score PHQ-9: Total score 6 01/25/24 10:44 Depression Screening Interpretation: Negative Thrive Assessment: Date of Thrive Assessment Date Thrive assessed 01/25/24 01/25/24 10:29 Currently or been in a relationship where the following occur: I choose not to answer Const Orientation/consciousness: patient oriented x3 Resp Effort & Inspection: normal respiratory effort Auscultation: clear to auscultation bilaterally Cardio Rate: regular rate Rhythm: regular rhythm Heart sounds: S1 normal heart sound present and S2 normal heart sound present Neuro Other: finger to thumb intact. Able to recall 3 objects at the end of the visit, that i showed the pt during the beginning of the visit General: patient oriented x3 and CN's II-XI intact bilaterally Gait exam (Neuro): Normal gait present and not shuffling Motor exam (neuro): 5/5 motor strength present throughout Coordination: [id number] test normal, Romberg test negative and No Romberg test positive Psych Affect: normal affect Attitude: cooperative Thought process: Normal thought process present Thought content: Normal thought content present Insight: Good insight present (Psych) Judgement: Good judgement present (Psych) Coding Level of Care Code Est Pt Level 3 (17099) Diagnoses Memory loss R41.3 Additional Codes ARELI-7 Assessment Billing - ARELI-7 Assessment Tool: ARELI-7 Assessment 37136 ([id number]) Assessment & Plan Assessment & Plan (1) Memory loss: Code(s): R41.3 - Other amnesia Category: Medical Plan: MRI ordered, referred to neuro-psych. labs ordered as well Orders: Orders MR head/brain wo con Today R41.3 - Other amnesia Homocysteine Today R41.3 - Other amnesia Vitamin B12 and Folate Today R41.3 - Other amnesia Tick-borne Disease Molecular Today R41.3 - Other amnesia Syphilis Screen Today R41.3 - Other amnesia Complete Blood Count Auto Diff Today R41.3 - Other amnesia Comprehensive Met. Panel Today R41.3 - Other amnesia TSH reflex Free T4 Today R41.3 - Other amnesia Methylmalonic Acid Today R41.3 - Other amnesia Lyme IgG/IgM w/reflex to WB Today R41.3 - Other amnesia Referrals Neuropsychiatry Referral R41.3 - Other amnesia
== END 2024-01-25 15:23 | disposition home or self-care (01) ==
PROVIDERS: PCP Nurse Practitioner Family; Visit Provider Nurse Practitioner Family
DX: R41.3 Other amnesia (principal)

== ENCOUNTER → 2024-01-25 10:22 | Outpatient (BNVA) | payer OTHER, SELFPAY | PROVIDERS: PCP Nurse Practitioner Family; Visit Provider Nurse Practitioner Family ==

== ENCOUNTER 2024-01-25 11:26 | Outpatient (REF) | payer OTHER, SELFPAY ==
[2024-01-25 12:10] LABS: MANUAL DIFF FLAG NO
[2024-01-25 12:21] LABS: Basophils Percent Auto 0.9 % (0-2); Eosinophils Absolute Auto 0.1 X10*3/uL (0.0-0.4); Eosinophils Percent Auto 1.4 % (0-4); Hematocrit 41.7 % (42.0-52.0); Hemoglobin 14.8 g/dl (14.0-18.0); Imm Gran Abs Auto 0.02 X10*3/uL (0.00-0.03); Imm Gran Pct Auto 0.5 % (0.0-0.4); Lymphocytes Absolute Auto 1.2 X10*3/uL (1.2-4.9); Lymphocytes Percent Auto 27.1 % (20-40); Mean Corpuscular HGB Conc 35.5 g/dl (31.0-36.0); Mean Corpuscular Hemoglobin 30.9 pg (27.0-33.0); Mean Corpuscular Volume 87.1 fL (80.0-98.0); Mean Platelet Volume 8.6 fL (9.4-12.4); Monocytes Absolute Auto 0.4 X10*3/uL (0.1-1.2); Monocytes Percent Auto 9.9 % (2-11); Neutrophils Absolute Auto 2.6 x10*3/uL (2.0-8.3); Neutrophils Percent Auto 60.2 % (45-73); Platelet Count 167 X10*3/uL (160-400); Red Blood Count 4.79 X10*6/uL (4.60-5.80); Red Cell Distribution Width 12.1 % (11.0-16.0); White Blood Count 4.4 X10*3/uL (4.8-10.8)
[2024-01-25 13:09] LABS: Alanine Aminotransferase 27 U/L (0-40); Albumin Level 4.5 g/dL (3.5-5.0); Alkaline Phosphatase 74 U/L (39-117); Anion Gap 12 (12-20); Aspartate Amino Transferase 26 U/L (5-37); Bilirubin Total 0.5 mg/dL (0.0-1.0); Blood Urea Nitrogen 17 mg/dL (9-16); Calcium 9.6 mg/dL (8.4-10.2); Carbon Dioxide 26 mmol/L (22-29); Chloride 108 mmol/L (96-108); Estimated Glomerular Filt Rate > 60; Glucose Random 102 mg/dL (60-115); Sodium 141 mmol/L (135-145); Total Protein 7.2 g/dL (6.5-8.0)
[2024-01-25 13:11] LABS: Syphilis Screen Nonreactive (Nonreactive)
[2024-01-25 13:17] LABS: TSH reflex Free T4 1.37 uIU/mL (0.32-4.0)
[2024-01-25 13:38] LABS: Folate 13.7 ng/mL (> or = 4.0); Vitamin B12 576 pg/mL (200-900)
[2024-01-26 12:59] LABS: Lyme Blot 2.53 index
[2024-01-26 18:47] LABS: Homocysteine 11.3 umol/L (<11.4)
[2024-01-27 01:03] LABS: A. Phagocytphilium DNA,RT-PCR NOT DETECTED (NOT DETECTED); Babesia Microti DNA, RT-PCR NOT DETECTED (NOT DETECTED); Borrelia Miyamotoi,DNA RT-PCR NOT DETECTED (NOT DETECTED); E.Chaffeensis DNA RT-PCR NOT DETECTED (NOT DETECTED); Lyme(Borrelia ssp)DNA RT-PCR NOT DETECTED (NOT DETECTED)
[2024-01-27 10:27] LABS: Lyme Abs Screen POSITIVE
[2024-01-27 22:34] LABS: 18 KD (IgG) Band REACTIVE; 23 KD (IgG) Band NON-REACTIVE; 23 KD (IgM) Band NON-REACTIVE; 28 KD (IgG) Band NON-REACTIVE; 30 KD (IgG) Band NON-REACTIVE; 39 KD (IgM) Band NON-REACTIVE; 39KD (IgG) Band REACTIVE; 41 KD (IgM) Band NON-REACTIVE; 41KD (IgG) Band NON-REACTIVE; 45 KD (IgG) Band NON-REACTIVE; 58 KD (IgG) Band REACTIVE; 66 KD (IgG) Band NON-REACTIVE; 93 KD (IgG) Band NON-REACTIVE; Lyme IgG Blot Interp NEGATIVE (NEGATIVE); Lyme IgM Blot Interp NEGATIVE (NEGATIVE)
[2024-01-29 09:08] LABS: Methylmalonic Acid 114 nmol/L (69-390)
== END 2024-01-25 11:27 | disposition home or self-care (01) ==
LOC: HO.HMGCLDS 11:26
PROVIDERS: PCP Nurse Practitioner Family; Visit Provider Nurse Practitioner Family
DX: R41.3 Other amnesia (principal); Z13.39 Encounter for screening examination for other mental health and behavioral disorders
CPT/HCPCS: 36415; 80053; 82607; 82746; 83090; 83921; 84443; 85025; 86617; 86618; 86780; 87468; 87469; 87478; 87484; 87798; 96127

== ENCOUNTER 2024-02-02 16:48 | Outpatient (REF) | payer OTHER, SELFPAY ==
--- NOTE | ~2024-02-02 | MR_ITS ---
EXAMINATION: MR BRAIN WITHOUT CONTRAST CLINICAL INFORMATION: Dementia COMPARISON: MRI brain on 05/20/2015 TECHNIQUE: MRI of the brain was obtained using routine sequences without contrast. FINDINGS: Ventricles, sulci and cisterns are normal. No focal cerebral, brainstem or cerebellar lesions with abnormal signal can be seen. Diffusion weighted images show no abnormal regional decrease in diffusion. Normal flow voids of major intracerebral blood vessels are seen in the visualized portion. The pituitary gland is normal. Optic chiasm is not displaced. Cerebellar tonsils position is normal. Bilateral frontal and ethmoid sinuses show mild circumferential mucosal thickening. Bilateral maxillary sinuses show moderate mucosal thickening at the floor. MR/MR head/brain wo con IMPRESSION: 1. Unchanged Normal MRI scan of the brain. 2. No acute cerebral infarction is seen. 3. No evidence of space occupying mass lesion could be found. 4. No evidence of intracranial hemorrhage. 5. Persistent bilateral maxillary sinus disease. Electronically signed by: Mary Kate Dixon MD 03/02/2024 01:55 PM EST
== END 2024-02-02 16:49 | disposition home or self-care (01) ==
LOC: HO.MRI 16:48
PROVIDERS: PCP Nurse Practitioner Family; Visit Provider Nurse Practitioner Family
DX: R41.3 Other amnesia (principal)
CPT/HCPCS: 70551

== ENCOUNTER 2024-05-02 10:59 | Outpatient (AMB) | payer OTHER, SELFPAY ==
[2024-05-02 11:01] VITALS: BP 118/70; PULSE 71; O2SAT 96; BMI 30.3
--- NOTE | 2024-05-02 11:01 | A.OFFPC_ITS ---
Vital Signs 05/02/24 11:01 Height 6 ft 2 in Weight 236 lb BMI 30.3 BP 118/70 Blood Pressure Location Rt brachial Position Sitting Pulse 71 Pulse Source Pulse Oximeter Pulse Oximetry (%) 96 Intake Visit Reasons: PE Intake Note: pt is here for PE Oven Equipment Repairer Required: No Accompanied by: Self / Same As Patient Allergies levofloxacin [From LEVAQUIN] Allergy (Intermediate, Verified 05/02/24 11:25) cramps morphine [MORPHINE] Allergy (Mild, Verified 05/02/24 11:25) agitation/hallucinations Medication List - Last Reconciled 05/02/24 by Jelani Padron, DENTAL HYGIENE PROFESSOR- amlodipine 5 mg PO DAILY 90 days atorvastatin 10 mg PO BEDTIME duloxetine 60 mg PO DAILY gabapentin 100 mg PO BEDTIME lorazepam 0.5 mg PO BID PRN 30 days multivitamin 1 tab PO DAILY nabumetone 500 mg PO BID 30 days omeprazole 20 mg PO DAILY trazodone 100 mg PO BEDTIME 30 days Tobacco use date assessed: 05/02/24 Fall risk assessment: No Falls in past year Last assessed Fall Risk: 05/02/24 Dental Screening Dental Screen Date: 05/02/24 Did you have a dental visit in the last 12 months?: Yes Did you have a dental problem in the last 6 months where you did not have access to dental care?: No Was dental information given to patient?: Patient has dentist HPI PE HPI Details History of Present Illness The patient is a 64-year-old male presenting with memory impairment. He reports ongoing issues with memory, but a recent MRI did not indicate any acute findings. He is scheduled for a follow-up appointment with a neuropsychologist in July. In addition, the patient has a history of chronic pain related to back issues and experiences mild depression. He had discontinued duloxetine for some time but resumed its use, noting it helps with his mood symptoms. The patient experiences a weak urinary stream and suprapubic discomfort; these issues have been previously managed with input from a urologist. The patient denies any recent fevers, chills, chest pain, or shortness of breath. He also reports having an up-to-date colonoscopy and continues to consult a residential carpet installer. Health Maintenance - Colonoscopy is up to date. - Ongoing monitoring and consultation wi mickey a neuropsychologist scheduled for July. - Follow-up with a urologist for urinary issues. Social History Review of Systems - General: Denies fevers or chills. - Cardiovascular: Denies chest pain. - Respiratory: Denies shortness of breat h. - Genitourinary: Reports weak urinary st ream and suprapubic discomfort. - Denies any si or hi Physical Exam General: Cooperative, healthy appearing, comfortable, no acute distress and well developed Orientation: Patient oriented x3 Limitations: No limitations Head: Normal to inspection Ears: Hearing grossly normal bilaterally Nose: Normal external nose present Face and sinus: Normal facial exam Eyes: Appearance normal, both eyes and all related structures Neck: Normal visual inspection and Yes full ROM Respiratory: Normal respiratory effort and able to speak in complete sentences. Clear to auscultation bilaterally Cardiovascular: Regular rate and rhythm. Normal S1 and S2 GI: Normal to inspection. Soft to palpation and nontender Skin: No rashes or lesions noted Neuro: Patient oriented x3 Extremities: Normal to inspection Results - MRI of the brain: Negative for acute f indings. - Prior tick testing and Lyme disease te sting was neg, will repeat. Plan - Memory impairment: Continue monitoring , with forthcoming neuropsychological assessment in July. - Chronic pain: Continue duloxetine, not ing its beneficial effects. - Mild depressive disorder: Management i ncludes continuation of duloxetine. - Urinary symptoms: Notify urologist reg arding suprapubic discomfort and weak urinary stream. Repeat Lyme disease and tick testing as a precautionary measure. Patient was informed and verbally consented to the use of an ambient scribe for clinic note documentation during this visit. Discussion Notes I discussed the current management plan with the patient, including ongoing monitoring of memory issues with a neuropsychologist appointment scheduled in July. We reviewed the patient's response to duloxetine in managing both chronic pain and mild depressive symptoms. For urinary symptoms, I advised that the urologist would be informed about the suprapubic discomfort and weak urinary stream. The importance of remaining up to date with colonoscopy screening was also reiterated. Patient Instructions - Continue taking duloxetine as prescrib ed. - Attend the scheduled neuropsychologist appointment in July. - Inform urologist of any changes in uri nary symptoms. - Maintain follow-up care with gastroent erologist for colonoscopic screenings. - Follow any recommendations provided by the urologist for urinary symptoms. [facility] Medical History (Updated 05/02/24 @ 11:40 [facility] Physical exam Abnormal hepatitis serology Screening PSA (prostate specific antigen) Encounter for routine adult physical exam with abnormal findings Elevated liver enzymes Post covid-19 condition, unspecified GERD (gastroesophageal reflux disease) Elevated cholesterol HTN (hypertension) Pain of cervicothoracic region of spine Cervical stenosis of spinal canal Surgical History (Reviewed 05/02/24 @ 11:26 by Jelani Padron [facility] Hx of appendectomy History of colonoscopy History of lumbar fusion History of discectomy Family History Father Anxiety Depression Substance use disorder Mother Stroke Asthma Brother Stroke Substance use disorder Brother Liver disease Substance use disorder Daughter Diabetes mellitus Daughter Diabetes mellitus Son Asthma Social History Household Members: Spouse and Children Housing: House Are you a primary direct care provider to a significant other at home: No Do you presently have visiting nurse or other home services: No Alcohol intake: never Patient Tobacco Use Status: Never used Tobacco e-Cigarette/Vaping Use: Never Used Second Hand Smoke Exposure: No service: No Current occupational status: retired Cognitive needs: No Hearing needs: No Vision needs: No Questionnaire PHQ-9 Over the last 2 weeks, how often have you been bothered by any of the following problems? 1. Little interest or pleasure in doing things: more than half the days 2. Feeling down, depressed, or hopeless: several days 3. Trouble falling or staying asleep, or sleeping too much: several days 4. Feeling tired or having little energy: several days 5. Poor appetite or overeating: not at all 6. Feeling bad about yourself - or that you are a failure or have let yourself or your family down: not at all 7. Trouble concentrating on things, such as reading the newspaper or watching television: several days 8. Moving or speaking so slowly that other people could have noticed. Or the opposite - being so fidgety or restless that you have been moving around a lot more than usual: not at all 9. Thoughts that you would be better off or of hurting yourself in some way: not at all Total score: 6 Depression Screening Interpretation: Negative (pt refuses a therapist or psychiatrist currently. denies any SI or HI. ) Depression Screening Done: Yes 25609 - PHQ-9 Billing: Yes Source: Developed by Drs. Darryl Ramirez, Liza Rendon, Basilio Nix and colleagues, with an educational ronda from [employer] Thrive Questionnaire Date Thrive assessed: 05/02/24 I am a: Patient What is your living situation today?: I have a steady place to live Within the past 12 months, did the food you bought not last and you didn't have the money to get more?: Never true Within the past 12 months, did you worry whether your food would run out before you got money to buy more?: Never true Do you have trouble paying for medicines?: No Do you have trouble getting transportation to medical appointments?: No Do you have trouble paying your heating and electricity bill?: No Do you have trouble taking care of your child, family member or friend?: No Do you have trouble with day-to-day activities such as bathing, preparing meals, shopping, managing finances, etc.?: No Are you currently unemployed and looking for a job?: No Are you interested in more education?: No Please select the resources that you would like help with: None Currently or been in a relationship where the following occur: No concerns reported THRIVE Score: 0 AUDIT C Alcohol Use Questionnaire (AUDIT-C) 1. How often do you have a drink containing alcohol?: Never 3. How often do you have six or more drinks on one occasion?: Never Total Score: 0 Score Reviewed/Action Taken: Yes ARELI-7 AMB Questionnaire ARELI-7 Date ARELI - 7 assessed: 05/02/24 Feeling nervous, anxious, or on edge: 1 = Several days Not being able to stop or control worryin = Several days Worrying too much about different things: 1 = Several days Trouble relaxin = Several days Being so restless that it is hard to sit still: 0 = Not at all Becoming easily annoyed or irritable: 0 = Not at all Feeling afraid as if something awful might happen: 1 = Several days Total ARELI-7 score (0-4 normal; 5-9 mild; 10-14 moderate; 15-21 severe): 5 Source: Developed by Drs. Darryl Ramirez, Liza Rendon, Basilio Nix and colleagues, with an educational ronda from [employer] ARELI-7 Assessment Billing ARELI-7 Assessment Tool: ARELI-7 Assessment 87364 Physical exam (Primary Care) Vital Signs: Last Vital Signs Pulse 71 05/02/24 11:01 BP 118/70 05/02/24 11:01 Pulse Ox 96 05/02/24 11:01 BMI result Body Mass Index 30.3 Tobacco/Smoking Status: Tobacco use Status Tobacco use date assessed 05/02/24 05/02/24 11:02 Patient Tobacco Use Status Never used Tobacco 05/02/24 11:02 e-Cigarette/Vaping Use Never Used 05/02/24 11:02 PHQ-9: PHQ-9 Score PHQ-9: Total score 6 05/02/24 11:02 Depression Screening Interpretation: Negative (pt refuses a therapist or psychiatrist currently. denies any SI or HI. ) Thrive Assessment: Date of Thrive Assessment Date Thrive assessed 05/02/24 05/02/24 11:02 Currently or been in a relationship where the following occur: No concerns reported Coding Level of Care Code Est Pt Prev Care >65y(25140) Diagnoses Memory loss R41.3 Physical exam Z00.00 Weak urinary stream R39.12 Additional Codes ARELI-7 Assessment Billing - ARELI-7 Assessment Tool: ARELI-7 Assessment 06916 ([id number]) PHQ-9 - 77153 - PHQ-9 Billing: Yes ([id number]) Assessment & Plan Assessment & Plan (1) Memory loss: Code(s): R41.3 - Other amnesia Category: Medical (2) Physical exam: Code(s): Z00.00 - Encounter for general adult medical examination without abnormal findings Category: Medical (3) Weak urinary stream: Code(s): R39.12 - Poor urinary stream Category: Medical Plan . Orders: Orders Comprehensive [place]. Panel Fast Today Z00.00 - Encounter for general adult medical examination without abnormal findings UA CC w/rflx Micro + Cult Today Z00.00 - Encounter for general adult medical examination without abnormal findings Tick-borne Disease Molecular Today R41.3 - Other amnesia Lyme IgG/IgM w/reflex to WB Today R41.3 - Other amnesia Complete Blood Count Auto Diff Today Z00.00 - Encounter for general adult medical examination without abnormal findings TSH reflex Free T4 Today Z00.00 - Encounter for general adult medical examination without abnormal findings Lipid Panel Today Z00.00 - Encounter for general adult medical examination without abnormal findings
== END 2024-05-02 11:50 | disposition home or self-care (01) ==
PROVIDERS: PCP Nurse Practitioner Family; Visit Provider Nurse Practitioner Family
DX: R41.3 Other amnesia (principal); Z00.00 Encounter for general adult medical examination without abnormal findings; R39.12 Poor urinary stream

== ENCOUNTER → 2024-05-02 10:59 | Outpatient (BNVA) | payer OTHER, SELFPAY | PROVIDERS: PCP Nurse Practitioner Family; Visit Provider Nurse Practitioner Family | DX: Z00.00 Encounter for general adult medical examination without abnormal findings (principal); R41.3 Other amnesia; R39.12 Poor urinary stream; G89.29 Other chronic pain; F32.A Depression, unspecified; Z79.899 Other long term (current) drug therapy; Z28.21 Immunization not carried out because of patient refusal | CPT/HCPCS: 96127 ==

== ENCOUNTER 2024-06-16 08:14 | Outpatient (REF) | payer OTHER, SELFPAY ==
[2024-06-16 08:28] LABS: MANUAL DIFF FLAG NO
[2024-06-16 09:19] LABS: Basophils Absolute Auto 0.1 X10*3/uL (0.0-0.2); Eosinophils Absolute Auto 0.2 X10*3/uL (0.0-0.4); Hematocrit 45.7 % (42.0-52.0); Hemoglobin 15.7 g/dl (14.0-18.0); Imm Gran Abs Auto 0.01 X10*3/uL (0.00-0.03); Imm Gran Pct Auto 0.2 % (0.0-0.4); Lymphocytes Absolute Auto 1.5 X10*3/uL (1.2-4.9); Lymphocytes Percent Auto 30.8 % (20-40); Mean Corpuscular HGB Conc 34.4 g/dl (31.0-36.0); Mean Corpuscular Volume 87.4 fL (80.0-98.0); Mean Platelet Volume 9.1 fL (9.4-12.4); Monocytes Absolute Auto 0.5 X10*3/uL (0.1-1.2); Monocytes Percent Auto 10.7 % (2-11); Neutrophils Absolute Auto 2.6 x10*3/uL (2.0-8.3); Neutrophils Percent Auto 53.3 % (45-73); Platelet Count 177 X10*3/uL (160-400); Red Blood Count 5.23 X10*6/uL (4.60-5.80); Red Cell Distribution Width 12.1 % (11.0-16.0); White Blood Count 4.9 X10*3/uL (4.8-10.8)
[2024-06-16 09:40] LABS: Alanine Aminotransferase 26 U/L (0-40); Albumin Level 4.3 g/dL (3.5-5.0); Alkaline Phosphatase 80 U/L (39-117); Anion Gap 12 (12-20); Aspartate Amino Transferase 29 U/L (5-37); Bilirubin Total 0.6 mg/dL (0.0-1.0); Blood Urea Nitrogen 19 mg/dL (9-16); Calcium 9.6 mg/dL (8.4-10.2); Carbon Dioxide 25 mmol/L (22-29); Chloride 108 mmol/L (96-108); Cholesterol 120 mg/dL (<200); Estimated Glomerular Filt Rate > 60; Glucose Fasting 95 mg/dL (60-99); HDL Cholesterol 36 mg/dL (>40); LDL Cholesterol Calculated 64 mg/dL (<100); Potassium 4.6 mmol/L (3.3-5.1); Sodium 140 mmol/L (135-145); Total Protein 7.6 g/dL (6.5-8.0); Triglycerides 100 mg/dL (<150)
[2024-06-16 10:03] LABS: TSH reflex Free T4 2.18 uIU/mL (0.32-4.0)
[2024-06-16 10:05] LABS: Prostate Specific Antigen 2.29 ng/mL (<0.05-4.0)
[2024-06-17 14:28] LABS: A. Phagocytphilium DNA,RT-PCR NOT DETECTED (NOT DETECTED); Babesia Microti DNA, RT-PCR NOT DETECTED (NOT DETECTED); Borrelia Miyamotoi,DNA RT-PCR NOT DETECTED (NOT DETECTED); E.Chaffeensis DNA RT-PCR NOT DETECTED (NOT DETECTED); Lyme(Borrelia ssp)DNA RT-PCR NOT DETECTED (NOT DETECTED)
[2024-06-19 21:59] LABS: Lyme Blot 2.43 index
[2024-06-20 13:30] LABS: Lyme Abs Screen POSITIVE
[2024-06-21 20:58] LABS: 18 KD (IgG) Band REACTIVE; 23 KD (IgG) Band NON-REACTIVE; 23 KD (IgM) Band NON-REACTIVE; 28 KD (IgG) Band NON-REACTIVE; 30 KD (IgG) Band NON-REACTIVE; 39 KD (IgM) Band NON-REACTIVE; 39KD (IgG) Band REACTIVE; 41 KD (IgM) Band NON-REACTIVE; 41KD (IgG) Band NON-REACTIVE; 45 KD (IgG) Band NON-REACTIVE; 58 KD (IgG) Band NON-REACTIVE; 66 KD (IgG) Band NON-REACTIVE; 93 KD (IgG) Band NON-REACTIVE; Lyme IgG Blot Interp NEGATIVE (NEGATIVE); Lyme IgM Blot Interp NEGATIVE (NEGATIVE)
== END 2024-06-16 08:15 | disposition home or self-care (01) ==
LOC: HO.LAB 08:14
PROVIDERS: Nurse Practitioner; Urology; PCP Nurse Practitioner Family; Visit Provider Nurse Practitioner Family
DX: Z00.00 Encounter for general adult medical examination without abnormal findings (principal); R97.20 Elevated prostate specific antigen [PSA]; E78.5 Hyperlipidemia, unspecified; R41.3 Other amnesia; Z12.5 Encounter for screening for malignant neoplasm of prostate
CPT/HCPCS: 36415; 80053; 80061; 84153; 84443; 85025; 86617; 86618; 87468; 87469; 87478; 87484; 87798

== ENCOUNTER 2024-08-31 10:50 | Outpatient (AMB) | payer OTHER, SELFPAY ==
--- NOTE | 2024-08-31 10:53 | MHC.OFFVIS ---
Vital Signs 08/31/24 10:54 Height 6 ft 2 in Weight 235 lb BMI 30.2 BP 136/70 Blood Pressure Location Lt brachial Position Sitting Pulse 80 Pulse Source Pulse Oximeter Pulse Oximetry (%) 96 Oxygen Delivery Method Room Air Intake Visit Reasons: 6 months follow up Intake Note: ESTABLISHED PATIENT for mgmt of GERD. 6 mos FUV. CC; Pt had been experiencing sx which are being tx with dicyclomine and omeprazole ~ 2-3 mos ago. However, pt is now doing well and is not experiencing any sx. Pt had been making adjustments to med dosing / schedule s/p COVID 19 infection within the last year. Pt is now back on normal schedule. Wood Box Maker Required: No Allergies levofloxacin [From LEVAQUIN] Allergy (Intermediate, Verified 08/31/24 10:59) cramps morphine [MORPHINE] Allergy (Mild, Verified 08/31/24 10:59) agitation/hallucinations HPI HPI 6 months follow up: Details: Assessment & Plan (1) GERD (gastroesophageal reflux disease): Code(s): K21.9 - Gastro-esophageal reflux disease without esophagitis Category: Medical (2) Family history of colon cancer: Comment: Maternal grandmother, last scoped 2019 negative repeat in 5 years Code(s): Z80.0 - Family history of malignant neoplasm of digestive organs Category: Medical (3) Irritable bowel syndrome with diarrhea: Code(s): K58.0 - Irritable bowel syndrome with diarrhea Category: Medical Plan He is agreeable to a 5 year follow up. The procedure was well tolerated. The results were explained and the patient is agreeable to the follow-up interval as stated. The bowel pattern has returned to normal. Education was provided to tell any 1st degree relatives about their findings to be sure that they are screened by age 45. Educated that they will be put on a recall list when it is time for their repeat scope but should they move out of state or away from the hospital they will need to remember along with their primary to repeat the procedure in a timely fashion to avoid any adverse complications. Apparently he kept the appointment because he had an episode of dyspepsia that may have been a viral gastroenteritis since resolved without treatment before he get to see me. He continues on his omeprazole with good control of his GERD. He is agreeable to six-month follow-up. Medications: Refilled omeprazole 20 mg PO DAILY 90 caps 1RF On Hold dicyclomine Hold Comment: Doctor's Order 20 mg PO QID 30 days 120 tabs 6RF TODAYS VISIT He continues on his omeprazole with good control of his GERD. He again started taking the bentyl bid because he was having borborygmus, and it helped. The only new medication is Flomax because he was having some slowing of the urinary stream, and this worked well. ROV 6 mos. [facility] Medical History (Updated 08/31/24 @ 11:21 by NIKITA Morris) Abdominal pain Diverticulitis Fall Physical exam Abnormal hepatitis serology Screening PSA (prostate specific antigen) Encounter for routine adult physical exam with abnormal findings Elevated liver enzymes Post covid-19 condition, unspecified GERD (gastroesophageal reflux disease) Elevated cholesterol HTN (hypertension) Pain of cervicothoracic region of spine Cervical stenosis of spinal canal Surgical History Hx of appendectomy History of colonoscopy History of lumbar fusion History of discectomy Family History Father Anxiety Depression Substance use disorder Mother Stroke Asthma Brother Stroke Substance use disorder Brother Liver disease Substance use disorder Daughter Diabetes mellitus Daughter Diabetes mellitus Son Asthma Social History Household Members: Spouse and Children Housing: House Are you a primary residential care officer to a significant other at home: No Do you presently have visiting nurse or other home services: No Alcohol intake: never Patient Tobacco Use Status: Never used Tobacco e-Cigarette/Vaping Use: Never Used Second Hand Smoke Exposure: No service: No Current occupational status: retired Cognitive needs: No Hearing needs: No Vision needs: No Review of Systems Const Denies fatigue, Denies fever(s), Denies night sweats, Denies poor appetite and Denies weight loss ENT Reports Normal hearing present, Denies dental pain, Denies dysphagia, Denies hearing loss, Denies mouth pain, Denies odynophagia, Denies throat swelling, Denies tongue swelling and Reports other (Dentition adequate) Card Reports no additional complaints Resp Reports no additional complaints GI Details: Denies abdominal pain, Denies melena, Denies bloating, Denies hematochezia, Denies constipation, Reports GI cramping, Denies dysphagia, Denies excessive flatus, Denies early satiety, Reports heartburn, Denies diarrhea, Reports loose stools, Denies nausea, Denies odynophagia, Denies vomiting and Denies hematemesis Reports urinary hesitancy Skin/Breast Denies pruritus, Denies lesions, Denies rash and Denies jaundice Neuro Reports Normal hearing present and Denies Abnormal speech present Endo Denies fatigue Aller/Immun Denies throat swelling and Denies tongue swelling Physical Exam Vital Signs: Last Vital Signs Pulse 80 08/31/24 10:54 BP 136/70 08/31/24 10:54 Pulse Ox 96 08/31/24 10:54 Oxygen Delivery Method Room Air 08/31/24 10:54 BMI result Body Mass Index 30.2 Const General: cooperative, no acute distress, well developed and well groomed Nutritional Appearance: well nourished and obese Orientation/consciousness: oriented to person, oriented to place and oriented to time Limitations: No language barrier HEENT Head: Yes normocephalic and Yes atraumatic Eyes General: appearance normal, both eyes and all related structures Pupils: Equal, round and reactive pupils present Neck Neck: Yes normal visual inspection and Yes no lymphadenopathy Thyroid: Thyroid normal Resp Effort & Inspection: normal respiratory effort and able to speak in complete sentences Auscultation: clear to auscultation bilaterally Cardio Rate: regular rate Rhythm: regular rhythm Heart sounds: Normal, physiologic split S2 sound present Peripheral pulses: radial pulses present and posterior tibial pulses present GI Inspection: No distended, No Abdominal panniculus present and Yes obesity Palpation (GI): Soft to palpation, nontender, no guarding, not rigid and No hepatosplenomegaly present Percussion: Yes normal to percussion Auscultation: normal bowel sounds Rectal Exam - Male: Yes deferred Skin General skin exam: no rashes or lesions noted, turgor normal, skin not dry, no jaundice, No spider nevi and no striae Rashes: no rashes Nails: normal Neuro General: oriented to person, oriented to place and oriented to time Cranial nerves: Yes Equal, round and reactive pupils present and Yes Normal hearing present Speech: No Abnormal speech present Extrem General: Yes normal to inspection, No clubbing, No cyanosis and No edema Psych Appearance: grossly normal and well kempt Mental Status: mental status grossly normal Speech and movement: Normal speech and movement present Affect: normal affect Attitude: cooperative Thought process: Normal thought process present and not confabulating Thought content: Normal thought content present Insight: Good insight present (Psych) Judgement: Good judgement present (Psych) Assessment & Plan Assessment & Plan (1) Irritable bowel syndrome with diarrhea: Code(s): K58.0 - Irritable bowel syndrome with diarrhea Category: Medical (2) GERD (gastroesophageal reflux disease): Code(s): K21.9 - Gastro-esophageal reflux disease without esophagitis Category: Medical Plan He continues on his omeprazole with good control of his GERD. He again started taking the bentyl bid because he was having borborygmus, and it helped. The only new medication is Flomax because he was having some slowing of the urinary stream, and this worked well. ROV 6 mos. Medications: New dicyclomine 20 mg PO TID 90 tabs 6RF K58.0 - Irritable bowel syndrome with diarrhea Refilled omeprazole 20 mg PO DAILY 90 caps 1RF Coding Level of Care Code Est Pt Level 3 (69966) Diagnoses Irritable bowel syndrome with diarrhea K58.0 GERD (gastroesophageal reflux disease) K21.9
[2024-08-31 10:54] VITALS: BP 136/70; PULSE 80; O2SAT 96; BMI 30.2
== END 2024-08-31 11:14 | disposition home or self-care (01) ==
PROVIDERS: PCP Nurse Practitioner Family; Visit Provider Nurse Practitioner
DX: K58.0 Irritable bowel syndrome with diarrhea (principal); K21.9 Gastro-esophageal reflux disease without esophagitis
CPT/HCPCS: 99213

== ENCOUNTER → 2024-08-31 10:50 | Outpatient (BNVA) | payer OTHER, SELFPAY | PROVIDERS: PCP Nurse Practitioner Family; Visit Provider Nurse Practitioner ==

== ENCOUNTER 2024-10-16 10:08 | Outpatient (REF) | payer OTHER, SELFPAY ==
[2024-10-16 13:13] LABS: MANUAL DIFF FLAG NO
[2024-10-16 13:16] LABS: Appearance Urine Clear; Color Urine Dark Yellow; Glucose Urine UA Negative (Negative); Leukocyte Esterase Urine Negative (Negative); Nitrite Urine Negative (Negative); Specific Gravity - Urine 1.025 (1.005-1.025); Urine Blood Negative (Negative); Urine Ketones Trace mg/dL (Negative); Urine Protein Negative (Neg-Trace)
[2024-10-16 13:27] LABS: Basophils Absolute Auto 0.1 X10*3/uL (0.0-0.2); Basophils Percent Auto 1.3 % (0-2); Eosinophils Absolute Auto 0.1 X10*3/uL (0.0-0.4); Eosinophils Percent Auto 3.1 % (0-4); Hemoglobin 15.1 g/dl (14.0-18.0); Imm Gran Abs Auto 0.01 X10*3/uL (0.00-0.03); Imm Gran Pct Auto 0.2 % (0.0-0.4); Lymphocytes Absolute Auto 1.3 X10*3/uL (1.2-4.9); Lymphocytes Percent Auto 28.8 % (20-40); Mean Corpuscular HGB Conc 34.3 g/dl (31.0-36.0); Mean Corpuscular Hemoglobin 30.8 pg (27.0-33.0); Mean Corpuscular Volume 89.6 fL (80.0-98.0); Mean Platelet Volume 9.2 fL (9.4-12.4); Monocytes Absolute Auto 0.5 X10*3/uL (0.1-1.2); Monocytes Percent Auto 11.4 % (2-11); Neutrophils Absolute Auto 2.5 x10*3/uL (2.0-8.3); Neutrophils Percent Auto 55.2 % (45-73); Platelet Count 181 X10*3/uL (160-400); Red Blood Count 4.91 X10*6/uL (4.60-5.80); Red Cell Distribution Width 12.2 % (11.0-16.0); White Blood Count 4.6 X10*3/uL (4.8-10.8)
[2024-10-16 14:09] LABS: Alanine Aminotransferase 29 U/L (0-40); Albumin Level 4.6 g/dL (3.5-5.0); Alkaline Phosphatase 74 U/L (39-117); Anion Gap 12 (12-20); Aspartate Amino Transferase 39 U/L (5-37); Bilirubin Total 0.5 mg/dL (0.0-1.0); Blood Urea Nitrogen 19 mg/dL (9-16); Calcium 9.4 mg/dL (8.4-10.2); Carbon Dioxide 26 mmol/L (22-29); Chloride 107 mmol/L (96-108); Cholesterol 120 mg/dL (<200); Estimated Glomerular Filt Rate > 60; Glucose Fasting 98 mg/dL (60-99); HDL Cholesterol 39 mg/dL (>40); LDL Cholesterol Calculated 63 mg/dL (<100); Potassium 4.8 mmol/L (3.3-5.1); Sodium 140 mmol/L (135-145); TSH reflex Free T4 1.22 uIU/mL (0.32-4.0); Total Protein 7.2 g/dL (6.5-8.0); Triglycerides 92 mg/dL (<150); Vitamin D 25-OH Total 51.5 ng/mL (>30)
[2024-10-16 14:19] LABS: Folate 12.8 ng/mL (> or = 4.0); Vitamin B12 426 pg/mL (200-900)
== END 2024-10-16 10:09 | disposition home or self-care (01) ==
LOC: HO.HMGCLDS 10:08
PROVIDERS: PCP Nurse Practitioner Family; Visit Provider Nurse Practitioner Family
DX: E78.5 Hyperlipidemia, unspecified (principal); R41.3 Other amnesia
CPT/HCPCS: 36415; 80053; 80061; 81003; 82306; 82607; 82746; 84443; 85025

== ENCOUNTER 2024-10-16 10:08 | Outpatient (AMB) | payer OTHER, SELFPAY ==
--- NOTE | 2024-10-16 10:10 | MHC.PC.OV ---
Vital Signs 10/16/24 10:22 Height 6 ft 2 in Weight 235 lb BMI 30.2 BP 132/78 Blood Pressure Location Lt brachial Position Sitting Pulse 78 Pulse Source Pulse Oximeter Pulse Oximetry (%) 98 Oxygen Delivery Method Room Air Intake Visit Reasons: 6 month follow up Allergies levofloxacin (From LEVAQUIN) Allergy (Intermediate, Verified 10/16/24 10:42) cramps morphine (MORPHINE) Allergy (Mild, Verified 10/16/24 10:42) agitation/hallucinations Medication List - Last Reconciled 10/16/24 by Jelani Padron, [facility] amlodipine 5 mg PO DAILY 90 days atorvastatin 10 mg PO BEDTIME dicyclomine 20 mg PO BID duloxetine 60 mg PO DAILY famotidine 40 mg PO BEDTIME gabapentin 100 mg PO BEDTIME lorazepam 0.5 mg PO BID PRN 30 days multivitamin 1 tab PO DAILY nabumetone 500 mg PO BID 30 days tamsulosin 0.4 mg PO BEDTIME trazodone 100 mg PO BEDTIME 30 days Tobacco use date assessed: 05/02/24 Fall risk assessment: No Falls in past year Last assessed Fall Risk: 10/16/24 Dental Screening Dental Screen Date: 05/02/24 HPI 6 month follow up HPI Details Chief Complaint The patient presents with concerns of memory impairment. History of Present Illness The patient is a 64-year-old male presenting with memory impairment and chronic back pain. He recently underwent extensive neuropsychological testing due to ongoing memory issues, which revealed that multiple medications might be reducing acetylcholine availability in the brain. Recommendations included adjusting these medications to potentially improve cognitive function. An MRI of the brain was performed in the fall of 2023, showing no acute changes or abnormalities, confirming a normal scan. The patient is aware of these results and reports doing fair overall (neuro psych mentions no MRIs were done) There is a consideration that his ongoing pain and anxiety may contribute to his memory issues. Physical therapy was suggested again for his chronic back pain, and he was encouraged to engage in social and cognitive activities to prevent isolation. He is not currently taking cyclobenzaprine and will be switched from omeprazole to famotidine to potentially increase acetylcholine levels. The patient takes dicyclomine twice daily instead of the prescribed three times. A referral to Dr. Benjamin Graham for pain management was made, and a repeat neuropsychological evaluation is planned in 12 to 18 months. The patient plans to undergo fasting labs today as recommended. Social History - Social engagement: Encouraged to participate in social and cognitive activities to prevent isolation. Health Maintenance - Repeat neuropsychological evaluation planned in 12 to 18 months. - Fasting labs recommended and planned for today. -denies ay cp, sob, n/v, si or hi Review of Systems - Neurological: Reports memory impairment. Physical Exam General: Cooperative, healthy appearing, comfortable, no acute distress and well developed Orientation: Patient oriented x3 Limitations: No limitations Head: Normal to inspection Ears: Hearing grossly normal bilaterally Nose: Normal external nose present Face and sinus: Normal facial exam Eyes: Appearance normal, both eyes and all related structures Neck: Normal visual inspection and Yes full ROM Respiratory: Normal respiratory effort and able to speak in complete sentences. Clear to auscultation bilaterally Cardiovascular: Regular rate and rhythm. Normal S1 and S2 GI: Normal to inspection. Soft to palpation and nontender Skin: No rashes or lesions noted Neuro: CN 2 through 12 intact Extremities: Normal to inspection Results - MRI of the brain: Normal, no acute changes noted. Plan The plan includes adjusting medications to potentially improve cognitive function by switching from omeprazole to famotidine and monitoring the use of dicyclomine, which the patient takes twice daily instead of three times. A referral to Dr. Benjamin Graham for pain management has been made, and the patient is encouraged to engage in physical therapy for chronic back pain. The patient is advised to participate in social and cognitive activities to prevent isolation and is scheduled for a repeat neuropsychological evaluation in 12 to 18 months. Fasting labs are recommended and planned for today to further assess his health status. Patient was informed and verbally consented to the use of an ambient scribe for clinic note documentation during this visit. Discussion Notes I discussed with the patient the importance of adjusting his medications to potentially improve cognitive function, specifically switching from omeprazole to famotidine. We also talked about the need for a referral to Dr. Benjamin Graham for pain management and the benefits of engaging in physical therapy for his chronic back pain. I emphasized the importance of participating in social and cognitive activities to prevent isolation and the plan for a repeat neuropsychological evaluation in 12 to 18 months. We agreed on the necessity of fasting labs today to further assess his health status. Patient Instructions - Switch from omeprazole to famotidine as discussed. - Engage in physical therapy for back pain management. - Participate in social and cognitive activities to prevent isolation. - Plan for a repeat neuropsychological evaluation in 12 to 18 months. - Complete fasting labs today as recommended. [facility] Medical History Abdominal pain Diverticulitis Fall Physical exam Abnormal hepatitis serology Screening PSA (prostate specific antigen) Encounter for routine adult physical exam with abnormal findings Elevated liver enzymes Post covid-19 condition, unspecified GERD (gastroesophageal reflux disease) Elevated cholesterol HTN (hypertension) Pain of cervicothoracic region of spine Cervical stenosis of spinal canal Surgical History Hx of appendectomy History of colonoscopy History of lumbar fusion History of discectomy Family History Father Anxiety Depression Substance use disorder Mother Stroke Asthma Brother Stroke Substance use disorder Brother Liver disease Substance use disorder Daughter Diabetes mellitus Daughter Diabetes mellitus Son Asthma Social History Household Members: Spouse and Children Housing: House Are you a primary technical healthcare consultant to a significant other at home: No Do you presently have visiting nurse or other home services: No Alcohol intake: never Patient Tobacco Use Status: Never used Tobacco e-Cigarette/Vaping Use: Never Used Second Hand Smoke Exposure: No service: No Current occupational status: retired Cognitive needs: No Hearing needs: No Vision needs: No Questionnaire Thrive Questionnaire Date Thrive assessed: 10/16/24 I am a: Patient What is your living situation today?: I have a steady place to live Within the past 12 months, did the food you bought not last and you didn't have the money to get more?: Never true Within the past 12 months, did you worry whether your food would run out before you got money to buy more?: Never true Do you have trouble paying for medicines?: No Do you have trouble getting transportation to medical appointments?: No Do you have trouble paying your heating and electricity bill?: No Do you have trouble taking care of your child, family member or friend?: No Do you have trouble with day-to-day activities such as bathing, preparing meals, shopping, managing finances, etc.?: No Are you currently unemployed and looking for a job?: No Are you interested in more education?: No Please select the resources that you would like help with: None Currently or been in a relationship where the following occur: No concerns reported THRIVE Score: 0 ARELI-7 AMB Questionnaire ARELI-7 Date ARELI - 7 assessed: 05/02/24 Source: Developed by Drs. Darryl Ramirez, Liza Rendon, Basilio Nix and colleagues, with an educational ronda from [employer]. Physical exam (Primary Care) Vital Signs: Last Vital Signs Pulse 78 10/16/24 10:22 BP 132/78 10/16/24 10:22 Pulse Ox 98 10/16/24 10:22 Oxygen Delivery Method Room Air 10/16/24 10:22 BMI result Body Mass Index 30.2 Tobacco/Smoking Status: Tobacco use Status Tobacco use date assessed 05/02/24 10/16/24 10:11 Patient Tobacco Use Status Never used Tobacco 10/16/24 10:11 e-Cigarette/Vaping Use Never Used 10/16/24 10:11 Thrive Assessment: Date of Thrive Assessment Date Thrive assessed 10/16/24 10/16/24 10:25 Currently or been in a relationship where the following occur: No concerns reported Coding Level of Care Code Est Pt Level 4 (19945) Diagnoses Chronic lower back pain M54.50; G89.29 Dyslipidemia E78.5 Memory loss R41.3 Assessment & Plan Assessment & Plan (1) Chronic lower back pain: Code(s): M54.50 - Low back pain, unspecified; G89.29 - Other chronic pain Category: Medical (2) Dyslipidemia: Code(s): E78.5 - Hyperlipidemia, unspecified Category: Medical (3) Memory loss: Code(s): R41.3 - Other amnesia Category: Medical Plan . Orders: Orders Complete Blood Count Auto Diff Today FLORINA Jacobson E78.5 - Hyperlipidemia, unspecified, R41.3 - Other amnesia UA CC w/rflx Micro + Cult Today FLORINA Jacobson E78.5 - Hyperlipidemia, unspecified, R41.3 - Other amnesia Lipid Panel Today FLORINA Jacobson E78.5 - Hyperlipidemia, unspecified, R41.3 - Other amnesia Vitamin D 25-OH Total Today LARISSA JacobsonREBEKA E78.5 - Hyperlipidemia, unspecified, R41.3 - Other amnesia Vitamin B12 and Folate Today FLORINA Jacobson E78.5 - Hyperlipidemia, unspecified, R41.3 - Other amnesia Comprehensive [place]. Panel Fast Today FLORINA Jacobson E78.5 - Hyperlipidemia, unspecified, R41.3 - Other amnesia TSH reflex Free T4 Today FLORINA Jcaobson E78.5 - Hyperlipidemia, unspecified, R41.3 - Other amnesia Referrals Pain Management Referral LARISSA JacobsonPCADE G89.29 - Other chronic pain, M54.50 - Low back pain, unspecified Medications: New famotidine 40 mg PO BEDTIME 60 tabs 0RF YAMILEX JacobsonREBEKA Changed From dicyclomine 20 mg PO TID 90 tabs 6RF K58.0 - Irritable bowel syndrome with diarrhea To dicyclomine 20 mg PO BID K58.0 - Irritable bowel syndrome with diarrhea NIKITA Morris Discontinued omeprazole Discontinued Reason: Doctor's Order 20 mg PO DAILY 90 caps 1RF
[2024-10-16 10:22] VITALS: BP 132/78; PULSE 78; O2SAT 98; BMI 30.2
== END 2024-10-16 10:53 | disposition home or self-care (01) ==
LOC: HO.HMCC 10:08
PROVIDERS: PCP Nurse Practitioner Family; Visit Provider Nurse Practitioner Family
DX: M54.50 Low back pain, unspecified (principal); G89.29 Other chronic pain; E78.5 Hyperlipidemia, unspecified; R41.3 Other amnesia

== ENCOUNTER 2024-10-18 12:35 | Outpatient (REF) | payer OTHER, SELFPAY ==
[2024-10-18 12:57] LABS: MANUAL DIFF FLAG NO
[2024-10-18 13:46] LABS: Hematocrit 42.6 % (42.0-52.0); Hemoglobin 14.7 g/dl (14.0-18.0); Imm Gran Abs Auto 0.01 X10*3/uL (0.00-0.03); Imm Gran Pct Auto 0.2 % (0.0-0.4); Lymphocytes Absolute Auto 1.5 X10*3/uL (1.2-4.9); Mean Corpuscular HGB Conc 34.5 g/dl (31.0-36.0); Mean Corpuscular Hemoglobin 30.5 pg (27.0-33.0); Mean Corpuscular Volume 88.4 fL (80.0-98.0); NRBC Abs Auto 0.000 X10*3/uL (0.0-0.012); NRBC Pct Auto 0.0 /100WBC (0.0-0.2); Platelet Count 172 X10*3/uL (160-400); Red Blood Count 4.82 X10*6/uL (4.60-5.80); White Blood Count 4.3 X10*3/uL (4.8-10.8)
[2024-10-18 13:55] LABS: Appearance Urine Clear; Glucose Urine UA Negative (Negative); PH 6.0 (5.0-9.0); Specific Gravity - Urine 1.025 (1.005-1.025)
[2024-10-18 14:14] LABS: Alanine Aminotransferase 33 U/L (0-40); Albumin Level 4.4 g/dL (3.5-5.0); Alkaline Phosphatase 73 U/L (39-117); Anion Gap 11 (12-20); Aspartate Amino Transferase 33 U/L (5-37); Blood Urea Nitrogen 14 mg/dL (9-16); Calcium 9.1 mg/dL (8.4-10.2); Carbon Dioxide 25 mmol/L (22-29); Chloride 106 mmol/L (96-108); Cholesterol 113 mg/dL (<200); Estimated Glomerular Filt Rate > 60; HDL Cholesterol 34 mg/dL (>40); Potassium 4.3 mmol/L (3.3-5.1); Sodium 138 mmol/L (135-145); Total Protein 6.7 g/dL (6.5-8.0); Triglycerides 108 mg/dL (<150)
[2024-10-18 14:35] LABS: HBS Num1 0.00 mIU/mL (0-7.99); HBc Num1 0.06 S/CO (0.00-0.79); HBsAGNum1 0.29 S/CO (0.00-0.99); Hepatitis A Antibody IgM 0.79 Index (0-0.79); Hepatitis B Surface Antigen Negative (Negative); Prostate Specific Antigen 1.97 ng/mL (<0.05-4.0); ~HepC Num1 0.08 S/CO (0.00-0.79); ~Hepatitis A Antibody IgM Nonreactive (Nonreactive); ~Hepatitis B Surface Antibody NONREACTIVE (Nonreactive); ~Hepatitis C Antibody Nonreactive (Nonreactive)
== END 2024-10-18 12:36 | disposition home or self-care (01) ==
LOC: HO.LAB 12:35
PROVIDERS: Urology; PCP Nurse Practitioner Family; Visit Provider Nurse Practitioner Family
DX: Z00.00 Encounter for general adult medical examination without abnormal findings (principal); E78.5 Hyperlipidemia, unspecified; N32.0 Bladder-neck obstruction; I10 Essential (primary) hypertension; Z12.5 Encounter for screening for malignant neoplasm of prostate
CPT/HCPCS: 36415; 80053; 80061; 81003; 84153; 85025; 86704; 86706; 86709; 86803; 87340

== ENCOUNTER 2024-11-07 12:30 | Outpatient (REF) | payer OTHER, SELFPAY ==
[2024-11-07 12:58] LABS: MANUAL DIFF FLAG NO
--- OUTSIDE RECORDS SUMMARY | 2024-11-07 13:34 | XMS_ITS | Clinical Summary ---
Author Organization [facility] Address [address] [facility] [address] [place] [id number] Phone Care Team Providers Care Sql Etl Developer Name Role Phone Jelani Padron NP Primary Care Provider + Allergies Active Allergy Reactions Criticality Noted Date Comments Morphine Feeling Irritable Low 10/16/2022 Medications oxyCODONE HCl 10 mg Tab Take 5 mg by mouth every 4 (four) hours as needed. As needed for back pain Active rosuvastatin (CRESTOR) 5 MG tablet Take 5 mg by mouth daily. Active traZODone (DESYREL) 50 MG tablet Take 50 mg by mouth nightly at bedtime. Active amLODIPine (NORVASC) 5 MG tablet Take 5 mg by mouth daily. Active nabumetone (RELAFEN) 500 MG tablet Take 500 mg by mouth 2 (two) times a day. Active gabapentin (NEURONTIN) 100 MG capsule Take 200 mg by mouth 2 (two) times a day. Active cyclobenzaprine (FLEXERIL) 10 MG tablet Take 10 mg by mouth 3 (three) times a day as needed for muscle spasms. Active Active Problems No known active problems Social History Tobacco Use Types Packs/Day Years Used Date Smoking Tobacco: Never Smokeless Tobacco: Never Tobacco Cessation:Counseling Given: Not Answered Alcohol Use Standard Drinks/Week Comments Never 0 (1 standard drink = 0.6 oz pur e alcohol) Education Answer Date Recorded Are you interested in more education? Not on ana e 10/16/2022 Are you concerned about learning? Not on file 10/16/2022 No 10/16/2022 No 10/16/2022 Digital Access Answer Date Recorded No 10/16/2022 No 10/16/2022 Reliable internet access at home? Not on file 10/16/2022 Device with a working camera? Not on file Sex and Gender Information Value Date Recorded Sex Assigned at Not on file Legal Sex Male 7:00 PM EDT Gender Identity Not on file Sexual Orientation Not on file Last Filed Vital Signs Vital Sign Reading Time Taken Comments Blood Pressure 146/84 10/16/2022 7:12 PM EDT Pulse 85 10/16/2022 7:12 PM EDT Temperature 36.6 C (97.8 F) 10/16/2022 7:12 PM EDT Respiratory Rate 18 10/16/2022 7:12 PM EDT Oxygen Saturation 98% 10/16/2022 7:12 PM EDT Inhaled Oxygen Concentration - - Weight - - Height - - Body Mass Index - - Plan of Treatment Health Maintenance Due Date Last Done Comments LIPID PANEL 1959 DEPRESSION SCREENING 1971 HEPATITIS C SCREENING 1977 HIV ONE-TIME SCREENING (18-6 5 YEARS) 1977 COLOGUARD 2004 COLONOSCOPY 2004 COLORECTAL CANCER SCREENING 2004 FIT TEST 2004 FOBT 2004 SIGMOIDOSCOPY 2004 VIRTUAL COLONOSCOPY 2004 PNEUMOCOCCAL VACCINES (50+ years) (1 of 1 - PCV) 2009 ZOSTER VACCINES (1 of 2) 2009 COVID-19 VACCINE (4 - 2023-2 5 season) 2023 04/14/2021, 08/01/2020, 07/04/2020 Adult Td,Tdap Booster 06/17/2030 06/17/2020 , 04/30/2006 RSV VACCINE (1 - 1-dose 75+ series) 2034 SMOKING STATUS SCREENING (On ce After 26 Yrs) Completed 10/16/2022 HEPATITIS A VACCINES Aged Out No long er eligible based on patient's age to complete this topic HIB VACCINES Aged Out No longer eligi ble based on patient's age to complete this topic MENINGOCOCCAL VACCINES (ACWY) Aged Out No longer eligible based on patient's age to complete this topic MENINGOCOCCAL VACCINES (B) Aged Out N o longer eligible based on patient's age to complete this topic Medical Devices Not on file Insurance [employer] BENEFITS ADMINISTRATORS [employer]EF[employer] BENEFITS [employer]MINIST[employer]AT[employer]EFITS [employer] BENEFITS [employer]MINISTRATORS Care Teams Sql Etl Developer Relationship Specialty Start Date End Date Jelani Padron NP [address] [place] [id number] [email or web address] PCP - General Nurse Practitioner 10/16/22 Additional Source Comments The information contained in this document represents components of the legal health record. It is not the complete legal health record.[facility]
[2024-11-07 14:07] LABS: Hematocrit 42.3 % (42.0-52.0); Hemoglobin 14.7 g/dl (14.0-18.0); Imm Gran Abs Auto 0.01 X10*3/uL (0.00-0.03); Imm Gran Pct Auto 0.2 % (0.0-0.4); Lymphocytes Absolute Auto 1.6 X10*3/uL (1.2-4.9); Mean Corpuscular HGB Conc 34.8 g/dl (31.0-36.0); Mean Corpuscular Hemoglobin 30.8 pg (27.0-33.0); Mean Corpuscular Volume 88.7 fL (80.0-98.0); NRBC Abs Auto 0.000 X10*3/uL (0.0-0.012); NRBC Pct Auto 0.0 /100WBC (0.0-0.2); Platelet Count 167 X10*3/uL (160-400); Red Blood Count 4.77 X10*6/uL (4.60-5.80); White Blood Count 4.9 X10*3/uL (4.8-10.8)
[2024-11-07 16:00] LABS: Prostate Specific Antigen 1.96 ng/mL (<0.05-4.0)
== END 2024-11-07 12:31 | disposition home or self-care (01) ==
LOC: HO.LAB 12:30
PROVIDERS: PCP Nurse Practitioner Family; Visit Provider Urology
DX: N32.0 Bladder-neck obstruction (principal); D72.819 Decreased white blood cell count, unspecified; R97.20 Elevated prostate specific antigen [PSA]
CPT/HCPCS: 36415; 84153; 85025

== ENCOUNTER 2024-11-10 10:03 | Outpatient (AMB) | payer OTHER, SELFPAY ==
--- NOTE | 2024-11-10 10:05 | A.OFFVIS_ITS ---
Vital Signs 11/10/24 10:07 Height 6 ft 2 in Weight 230 lb BMI 29.5 BP 163/82 H Blood Pressure Location Rt brachial Position Sitting Respiration 16 Pulse 103 H Pulse Source Pulse Oximeter Pulse Oximetry (%) 97 Oxygen Delivery Method Room Air Intake Visit Reasons: Low back pain Matcher Offbearer Required: No Accompanied by: Self / Same As Patient Allergies levofloxacin (From LEVAQUIN) Allergy (Intermediate, Verified 11/10/24 10:05) cramps morphine (MORPHINE) Allergy (Mild, Verified 11/10/24 10:05) agitation/hallucinations HPI HPI Low back pain: Details: History of Present Illness The patient is a 64-year-old male presenting with chronic back pain. He reports neck, upper back, mid back, and lower back pain, with the most severe pain located in the buttock and mid back area. The pain is described as aching, stabbing, and burning, with a severity of 4/5/10 in the neck. The pain is exacerbated in the mornings and evenings, affecting his sleep. He has a history of three back surgeries and takes cyclobenzaprine as needed for muscle relaxation. He also uses oxycodone sparingly, primarily at night when the pain becomes severe. A CT scan of the abdomen and pelvis revealed severe degenerative disc disease in the lumbar spine. He has been advised against invasive procedures and prefers non-invasive management due to past negative experiences with surgical interventions. The patient has arthritis and reports deteriorating bone condition in his back, confirmed by MRI and X-ray findings. He is concerned about the cognitive effects of his medications and has consulted a psychologist regarding these issues. He experienced a COVID-19 infection, during which he discontinued his medications, leading to worsening symptoms. He resumed his medications after the infection resolved, which improved his condition. Pain Description - Onset and Timing: Pain is present daily, with exacerbations in the mornings and evenings. - Quality and Character: Described as aching, stabbing, and burning. - Primary Location: Mid to lower back, radiating to the buttock. - Exacerbating Factors: Sitting, lying down, and reclining. - Relieving Factors: Use of cyclobenzaprine and oxycodone at night. - Interference with Activities: Affects sleep and daily functioning. Results - CT Scan: Severe degenerative disc disease in the lumbar spine. Pain Management - Affect: Pain impacts sleep and daily activities. - Analgesia: Uses cyclobenzaprine and oxycodone as needed, with pain severity reported as 4/5/10 in the neck. - Adverse Effects: Cognitive issues related to medication use. - Activities of Daily Living: Pain affects sleep and daily functioning. - Aberrant Drug Related Behaviors: No evidence of misuse; medications are used sparingly and as needed. [facility] Medical History (Updated 11/14/24 @ 13:54 by Hugo Burnham MD) Elevated liver enzymes Abdominal pain Diverticulitis Fall Physical exam Abnormal hepatitis serology Screening PSA (prostate specific antigen) Encounter for routine adult physical exam with abnormal findings Post covid-19 condition, unspecified GERD (gastroesophageal reflux disease) Elevated cholesterol HTN (hypertension) Pain of cervicothoracic region of spine Cervical stenosis of spinal canal Surgical History Hx of appendectomy History of colonoscopy History of lumbar fusion History of discectomy Family History Father Anxiety Depression Substance use disorder Mother Stroke Asthma Brother Stroke Substance use disorder Brother Liver disease Substance use disorder Daughter Diabetes mellitus Daughter Diabetes mellitus Son Asthma Social History Household Members: Spouse and Children Housing: House Are you a primary healthcare recruiter to a significant other at home: No Do you presently have visiting nurse or other home services: No Alcohol intake: never Patient Tobacco Use Status: Never used Tobacco e-Cigarette/Vaping Use: Never Used Second Hand Smoke Exposure: No service: No Current occupational status: retired Cognitive needs: No Hearing needs: No Vision needs: No Physical Exam Vital Signs: Last Vital Signs Pulse 103 H 11/10/24 10:07 Resp 16 11/10/24 10:07 BP 163/82 H 11/10/24 10:07 Pulse Ox 97 11/10/24 10:07 Oxygen Delivery Method Room Air 11/10/24 10:07 BMI result Body Mass Index 29.5 Assessment & Plan Assessment & Plan (1) Chronic pain syndrome: Code(s): G89.4 - Chronic pain syndrome Category: Medical Plan Plan - Continue non-invasive pain management strategies, including lifestyle modifications and physical therapy. - Consider increasing gabapentin dosage if needed for better pain control. - Maintain current use of cyclobenzaprine and oxycodone as needed, ensuring minimal use to avoid dependency. - Explore alternative supplements such as turmeric, magnesium, ALA and fish oil for pain management. - Follow up with a psychologist specializing in pain management for cognitive issues related to medication. Patient was informed and verbally consented to the use of an ambient scribe for clinic note documentation during this visit. Discussion Notes I discussed with the patient the importance of non-invasive pain management strategies, including lifestyle modifications and physical therapy, as he prefer s to avoid surgical interventions. We talked about the potential to increase gabapentin dosage for improved pain control and the use of supplements like turmeric and magnesium. I advised maintaining minimal use of cyclobenzaprine and oxycodone to prevent dependency and recommended follow-up with a psychologist for cognitive issues related to medication. Patient Instructions - Continue with non-invasive pain management strategies, including lifestyle changes and physical therapy. - Consider increasing gabapentin dosage if needed, after consulting with your doctor. - Use cyclobenzaprine and oxycodone sparingly, only when necessary. - Explore using turmeric, magnesium, and fish oil supplements for pain relief. - Follow up with a psychologist specializing in pain management for cognitive concerns. Coding Level of Care Code New Pt Level 4 (02330) Diagnoses Chronic pain syndrome G89.4
[2024-11-10 10:07] VITALS: BP 163/82; PULSE 103; RESP 16; O2SAT 97; BMI 29.5
--- OUTSIDE RECORDS SUMMARY | 2024-11-10 10:21 | XMS_ITS | Clinical Summary ---
Author Organization [facility] Address [address] [employer] [employer] [facility] [address] [place] [id number] Phone Care Team Providers Care Printed Circuit Boards Contact Printer Name Role Phone Jelani Padron NP Primary [...] topic Medical Devices Not on file Insurance [employer] B[employer]EF[employer]IST[employer]EF[employer] B[employer]EFITS [employer]MINISTRATORS Care Teams Printed Circuit Boards Contact Printer Relationship Specialty Start Date End Date Jelani Padron NP [address] [place] [address] [email or web address] PCP - General Nurse Practitioner 10/16/22 Additional Source Comments The information contained in this document represents components of the legal health record. It is not the complete legal health record.[facility]
== END 2024-11-10 11:05 | disposition home or self-care (01) ==
LOC: HO.PMC 10:04
PROVIDERS: PCP Nurse Practitioner Family; Referring Provider Nurse Practitioner Family; Visit Provider Internal Medicine
DX: G89.4 Chronic pain syndrome (principal)
CPT/HCPCS: 99204

== ENCOUNTER 2024-11-16 10:55 | Outpatient (AMB) | payer OTHER, SELFPAY ==
--- NOTE | 2024-11-16 10:55 | MHC.OFFVIS ---
Intake Visit Reasons: 1y/PSA Intake Note: Patient is Present for 1 yr Follow Up Urology Medication: Tamsulosin Antibiotic Allergies: Levofloxacin Blood Thinners: None Labs done 10/2024:1.97 PVR:16 mls Swaging Machine Adjuster Required: No Accompanied by: Self / Same As Patient Allergies levofloxacin (From LEVAQUIN) Allergy (Intermediate, Verified 11/16/24 10:56) cramps morphine (MORPHINE) Allergy (Mild, Verified 11/16/24 10:56) agitation/hallucinations HPI Comments Details: Rafa LINDSEY is a very pleasant male. He is a patient of Dr Sharp. He is seen for the following urologic conditions. - lower urinary tract symptoms Yearly follow-up - has postvoid leakage some degree of hesitancy - switch from tamsulosin to terazosin - three-month follow-up check cysto Recent neurocognitive testing PSA remains a normal range Prior Left hydrocele repair 2019 Discussed his condo conversion project Brother had prostate cancer early Elevated PSA/Abnormal BECKY: PSA remains low Current management is observation. Laboratory investigations include 06/06 1.6, 06/07 2.3, 08/06 1.3, 08/07 1.6, 04/09 2.3, 10/09 1.8, 04/10 2.1, 11/09 2.3 T 625, 11/10 2.0 Individualized Prostate Cancer Risk Calculator < 5% high risk, Would like to continue with observation and understands and accepts the risks of a possible delay in diagnosis. Overall symptoms are mild. Therapeutic plan will be continued surveillance. [facility] Medical History (Updated 11/14/24 @ 13:54 by Hugo Burnham MD) Elevated liver enzymes Abdominal pain Diverticulitis Fall Physical exam Abnormal hepatitis serology Screening PSA (prostate specific antigen) Encounter for routine adult physical exam with abnormal findings Post covid-19 condition, unspecified GERD (gastroesophageal reflux disease) Elevated cholesterol HTN (hypertension) Pain of cervicothoracic region of spine Cervical stenosis of spinal canal Surgical History Hx of appendectomy History of colonoscopy History of lumbar fusion History of discectomy Family History Father Anxiety Depression Substance use disorder Mother Stroke Asthma Brother Stroke Substance use disorder Brother Liver disease Substance use disorder Daughter Diabetes mellitus Daughter Diabetes mellitus Son Asthma Social History Household Members: Spouse and Children Housing: House Are you a primary healthcare consulting manager to a significant other at home: No Do you presently have visiting nurse or other home services: No Alcohol intake: never Patient Tobacco Use Status: Never used Tobacco e-Cigarette/Vaping Use: Never Used Second Hand Smoke Exposure: No service: No Current occupational status: retired Cognitive needs: No Hearing needs: No Vision needs: No Review of Systems Const Denies chills and Denies fever(s) Card Reports no additional complaints and Denies syncope Resp Denies cough GI Denies abdominal pain and Denies heartburn Reports as per HPI and Denies change in libido Neuro Denies syncope Psych Denies change in libido Endo Denies change in libido Physical Exam Const General: cooperative, healthy appearing, comfortable and no acute distress Orientation/consciousness: patient oriented x3 HEENT Face and sinus: Yes normal facial exam Mouth: moist mucous membranes Neck Neck: Yes normal visual inspection, Yes full ROM and Yes trachea midline Chest Chest palpation & inspection: normal inspection of the chest Resp Effort & Inspection: normal respiratory effort, able to speak in complete sentences and no respiratory distress GI Inspection: Yes normal to inspection Back/Spine/Pelvis Cervical Spine: normal cervical lordosis Thoracic/Lumbar Spine: thoracic and lumbar spine normal to inspection Skin General skin exam: no rashes or lesions noted Neuro General: patient oriented x3, gait normal, tone normal and moves all extremities Extrem General: Yes normal to inspection and Yes capillary refill normal Assessment & Plan Assessment & Plan (1) Bladder outlet obstruction: Code(s): N32.0 - Bladder-neck obstruction Category: Medical (2) Weak urinary stream: Code(s): R39.12 - Poor urinary stream Category: Medical Plan Three-month follow-up check cystoscopy Medications: New terazosin 5 mg PO BEDTIME 30 caps 2RF 30 days R39.12 - Poor urinary stream Discontinued tamsulosin . Discontinued Reason: Doctor's Order 0.4 mg PO BEDTIME 90 caps 0RF Patient Instructions: This note is constructed using voice recognition software. While every effort has been made to ensure accuracy accounting instructor errors may have been included. Imaging studies, laboratory and physical exam results were discussed and reviewed in detail. No major barriers to patient understanding were identified. An opportunity to ask questions regarding the treatment plan was provided. All questions were answered. The patient expressed understanding and agreement with the above treatment plan. The patient is aware they should contact our office by phone for worsening of their current condition or the appearance of new urologic symptoms. Compliance is encouraged with any medications and followup testing that is ordered. It is a privilege to participate in the urologic care of your patient. If you have any questions or concerns regarding treatment for the above conditions, or other urologic issues, please do not hesitate to contact me. The office telephone contact is [phone]. Sincerely, Dr Benedict Hardy MD, [facility] - Urology Compassionate Specialist Care for the Genitourinary System Coding Level of Care Code Est Pt Level 4 (41170) Diagnoses Bladder outlet obstruction N32.0 Weak urinary stream R39.12
--- OUTSIDE RECORDS SUMMARY | 2024-11-16 11:45 | XMS_ITS | Clinical Summary ---
Author Organization [facility] Address [address] [facility] [address] [place] [phone] Phone Care Team Providers Care Bolt Sorter Name Role Phone Jelani Padron NP Primary [...] topic Medical Devices Not on file Insurance [employer] BENEFITS ADMINISTRAT[employer] BENEFITS ADMINISTRATORS BENEFITS ADMINISTRATORS Care Teams Bolt Sorter Relationship Specialty Start Date End Date Jelani Padron NP [address] [place] [address] [email or web address] PCP - General Nurse Practitioner 10/16/22 Additional Source Comments The information contained in this document represents components of the legal health record. It is not the complete legal health record.[facility]
== END 2024-11-16 11:41 | disposition home or self-care (01) ==
LOC: HO.HUSH 10:56
PROVIDERS: PCP Nurse Practitioner Family; Visit Provider Urology
DX: N32.0 Bladder-neck obstruction (principal); R39.12 Poor urinary stream; Z13.9 Encounter for screening, unspecified
CPT/HCPCS: 99214

== ENCOUNTER → 2024-11-16 10:55 | Outpatient (BNVA) | payer OTHER, SELFPAY | PROVIDERS: PCP Nurse Practitioner Family; Visit Provider Urology | DX: N32.0 Bladder-neck obstruction (principal); R39.12 Poor urinary stream | CPT/HCPCS: 81003 ==

== ENCOUNTER 2024-12-08 10:21 | Outpatient (REF) | payer OTHER, SELFPAY ==
--- NOTE | ~2024-12-08 | US_ITS ---
CLINICAL HISTORY: R74.8 - Abnormal levels of other serum enzymes Exam: Ultrasound of the abdomen, complete. Comparison: CT september 03, 2023. Ultrasound March 09, 2022. Findings: Dense increased echotexture throughout the liver without focal lesion or intrahepatic biliary ductal dilatation. Common bile duct is within normal limits. Small rounded echogenic foci are seen along the gallbladder wall measuring between 2 and 6 mm in size. These may be related to small stones are adherent sludge balls. No gallbladder wall thickening or pericholecystic fluid. Negative sonographic Shell's sign. Pancreas can not be visualized due to overlying bowel gas. Spleen is unremarkable. Right kidney measures 11.3 cm in long axis. There is a 2.2 x 1.9 x 2.3 cm cyst within the right kidney. No hydronephrosis. Left kidney measures 12.6 cm in long axis. Lower pole left renal cyst measures 2.6 x 2.3 cm in size. Small associated peripheral calcifications. No hydronephrosis. Aorta and inferior vena cava are patent. No free fluid. Impression: 1. Dense increased hepatic echotexture, likely related to fatty infiltration. 2. Intrauterine stones or sludge balls within the gallbladder without ultrasound findings of cholecystitis. 3. Bilateral renal cysts. This document has been electronically signed by: Dinesh Tabor MD on 12/09/2024 11:10:15
--- OUTSIDE RECORDS SUMMARY | 2024-12-08 10:24 | XMS_ITS | Clinical Summary ---
Author Organization [facility] Address [address] [place] [address] Phone Care Team Providers Care Aerobics Instructor Name Role Phone Jelani Padron NP Primary [...] topic Medical Devices Not on file Insurance [employer]et [employer]ENEFITS ADMINIST[employer] BENEFITS ADMINISTRATORS BENEFITS ADMINISTRATORS [place] [address] Care Teams Aerobics Instructor Relationship Specialty Start Date End Date Jelani Padron NP [address] [facility] [place] [address] PCP - General Nurse Practitioner 10/16/22 Additional Source Comments The information contained in this document represents components of the legal health record. It is not the complete legal health record.[facility]
== END 2024-12-08 10:22 | disposition home or self-care (01) ==
LOC: HO.US 10:21
PROVIDERS: PCP Nurse Practitioner Family; Visit Provider Nurse Practitioner Family
DX: R74.8 Abnormal levels of other serum enzymes (principal)
CPT/HCPCS: 76700

== ENCOUNTER → 2024-12-08 10:22 | Outpatient (BNV) | payer OTHER, SELFPAY | PROVIDERS: PCP Nurse Practitioner Family; Visit Provider Radiology Diagnostic Radiology | DX: K80.20 Calculus of gallbladder without cholecystitis without obstruction (principal) | CPT/HCPCS: 76700 ==

== ENCOUNTER 2025-01-22 06:50 | Outpatient (AMB) | payer OTHER, SELFPAY ==
--- OUTSIDE RECORDS SUMMARY | 2025-01-22 07:07 | XMS_ITS | Clinical Summary ---
Author Organization [facility] Address [address] [place] [address] Phone Care Team Providers Care Cook Fry Name Role Phone Jelani Padron NP Primary [...] 2009 ZOSTER VACCINES (1 of 2) 2009 INFLUENZA VACCINE (#1) 2024 02/08/2007 COVID-19 VACCINE (4 - 2024-2 6 season) 2024 04/14/2021, 08/01/2020, 07/04/2020 Adult Td,Tdap Booster 06/17/2030 [...] topic Medical Devices Not on file Insurance [employer]EF[employer] Member Subscriber Plan / Payer (Ef fective 2019-Present) Name:Rafa Finch Relation to Subscriber:Spouse Name:LISSETTE FINCH Date of :1960 Address: [address] [place] [id number] Payer ID:[id number] (NAIC) Type:PPO Address: [place] [phone] Reactivity [employer]EFITS [employer] Member Subscriber Plan / Payer (Ef fective 2019-Present) Name:Rafa Finch Relation to Subscriber:Spouse Name:LISSETTE FINCH Date of :1960 Address: [address] [place] [id number] Payer ID:[id number] (NAIC) Type:PPO Address: [place] [phone] [employer] BENEFITS ADMINISTRATORS BENEFITS ADMINISTRATORS Reactivity BENEFITS ADMINISTRATORS BENEFITS ADMINISTRATORS Care Teams Cook Fry Relationship Specialty Start Date End Date Jelani Padron NP [address] [place] [address] PCP - General Nurse Practitioner 10/16/22 Additional Source Comments The information contained in this document represents components of the legal health record. It is not the complete legal health record.[facility]
--- NOTE | 2025-01-22 07:56 | MHC.PC.OV ---
Intake Visit Reasons: lab review Allergies levofloxacin (From LEVAQUIN) Allergy (Intermediate, Verified 01/22/25 08:13) cramps morphine (MORPHINE) Allergy (Mild, Verified 01/22/25 08:13) agitation/hallucinations Medication List - Last Reconciled 01/22/25 by Jelani Padron [facility]- amlodipine 5 mg PO DAILY atorvastatin 10 mg PO BEDTIME dicyclomine 20 mg PO BID duloxetine 60 mg PO DAILY famotidine 40 mg PO BEDTIME gabapentin 100 mg PO BEDTIME lorazepam 0.5 mg PO BID PRN 30 days multivitamin 1 tab PO DAILY nabumetone 500 mg PO BID 30 days terazosin 5 mg PO BEDTIME 30 days trazodone 100 mg PO BEDTIME 30 days Tobacco use date assessed: 05/02/24 Dental Screening Dental Screen Date: 05/02/24 HPI lab review HPI Details History of Present Illness The patient is a 64-year-old male presenting with elevated fasting blood glucose levels. His fasting blood glucose was recorded at 118 mg/dL, indicating a prediabetic state, prompting dietary modifications such as reducing soda and sweets intake. He acknowledges the need for lifestyle changes to prevent progression to diabetes. An abdominal ultrasound was performed due to the presence of bilirubin in the urine, revealing a fatty liver and gallbladder sludge. The patient denies any abdominal pain, changes in bowel habits, jaundice, or alcohol consumption. Liver function tests, including ALT, AST, and bilirubin, were stable and not elevated. Review of Systems - Gastrointestinal: Denies abdominal pain, changes in bowel habits, jaundice, nausea, vomiting. - Urinary: Denies urinary discoloration. Plan 1. Elevated Fasting Blood Glucose The patient has been advised to continue dietary modifications to manage elevated fasting blood glucose levels, which are currently at 118 mg/dL, indicating a prediabetic state. 2. Fatty Liver The patient will undergo a repeat abdominal ultrasound in 4-5 months to monitor the fatty liver condition. 3. Gallbladder Sludge A repeat abdominal ultrasound is planned in 4-5 months to assess the gallbladder sludge. 4. Preventative Care Preventative measures include repeating urinalysis with urine cytology and culture, as well as a CBC, to monitor overall health status. Discussion Notes I discussed with the patient the importance of managing his elevated fasting blood glucose through dietary changes to prevent progression to diabetes. We also reviewed the findings of his abdominal ultrasound, which showed a fatty liver and gallbladder sludge, and planned for follow-up imaging in 4-5 months. I advised repeating urinalysis with urine cytology and culture, as well as a CBC, to ensure comprehensive monitoring of his health. Patient Instructions - Continue dietary changes to manage blood sugar levels. - Follow up with repeat urinalysis and CBC as advised. - Schedule a repeat abdominal ultrasound in 4-5 months. [facility] Medical History Elevated liver enzymes Abdominal pain Diverticulitis Fall Physical exam Abnormal hepatitis serology Screening PSA (prostate specific antigen) Encounter for routine adult physical exam with abnormal findings Post covid-19 condition, unspecified GERD (gastroesophageal reflux disease) Elevated cholesterol HTN (hypertension) Pain of cervicothoracic region of spine Cervical stenosis of spinal canal Surgical History Hx of appendectomy History of colonoscopy History of lumbar fusion History of discectomy Family History Father Anxiety Depression Substance use disorder Mother Stroke Asthma Brother Stroke Substance use disorder Brother Liver disease Substance use disorder Daughter Diabetes mellitus Daughter Diabetes mellitus Son Asthma Social History Household Members: Spouse and Children Housing: House Are you a primary foster care case manager to a significant other at home: No Do you presently have visiting nurse or other home services: No Alcohol intake: never Patient Tobacco Use Status: Never used Tobacco e-Cigarette/Vaping Use: Never Used Second Hand Smoke Exposure: No service: No Current occupational status: retired Cognitive needs: No Hearing needs: No Vision needs: No Questionnaire Thrive Questionnaire Date Thrive assessed: 10/16/24 I am a: Patient What is your living situation today?: I have a steady place to live Within the past 12 months, did the food you bought not last and you didn't have the money to get more?: Never true Within the past 12 months, did you worry whether your food would run out before you got money to buy more?: Never true Do you have trouble paying for medicines?: No Do you have trouble getting transportation to medical appointments?: No Do you have trouble paying your heating and electricity bill?: No Do you have trouble taking care of your child, family member or friend?: No Do you have trouble with day-to-day activities such as bathing, preparing meals, shopping, managing finances, etc.?: No Are you currently unemployed and looking for a job?: No Are you interested in more education?: No Please select the resources that you would like help with: None Currently or been in a relationship where the following occur: No concerns reported THRIVE Score: 0 ARELI-7 AMB Questionnaire ARELI-7 Date ARELI - 7 assessed: 05/02/24 Source: Developed by Drs. Darryl Ramirez, Liza Rendon, Basilio Nix and colleagues, with an educational ronda from [employer]. Physical exam (Primary Care) Tobacco/Smoking Status: Tobacco use Status Tobacco use date assessed 05/02/24 10/16/24 10:11 Patient Tobacco Use Status Never used Tobacco 10/16/24 10:11 e-Cigarette/Vaping Use Never Used 10/16/24 10:11 Thrive Assessment: Date of Thrive Assessment Date Thrive assessed 04/25/24 11/07/24 17:21 Currently or been in a relationship where the following occur: No concerns reported Telehealth Telehealth Telehealth Platform: Telephone Location of provider rendering services: practice address Location of patient: address on file Patient Identification confirmed using: Name, : Yes Telehealth method: voice only Patient verbally consented to treatment: Yes Patient verbally consented to billing insurance company: Yes Patient informed of any privacy concerns related to visit: Yes Minutes spent on Phone/Video with Pt.: 13 Coding Level of Care Code Tele Est Pt Level 3 (58134) Diagnoses Bile pigments in urine R82.2 Gallbladder sludge K82.8 Assessment & Plan Assessment & Plan (1) Bile pigments in urine: Code(s): R82.2 - Biliuria Category: Medical (2) Gallbladder sludge: Code(s): K82.8 - Other specified diseases of gallbladder Category: Medical Plan . Orders: Orders Complete Blood Count Auto Diff 5 Months K76.0 - Fatty (change of) liver, not elsewhere classified, K82.8 - Other specified diseases of gallbladder UA CC w/rflx Micro + Cult Today R82.2 - Biliuria Urine Culture Today R82.2 - Biliuria Urine Cytology Today R82.2 - Biliuria Comprehensive Met. Panel 5 Months K76.0 - Fatty (change of) liver, not elsewhere classified, K82.8 - Other specified diseases of gallbladder US abdomen complete 5 Months K76.0 - Fatty (change of) liver, not elsewhere classified, K82.8 - Other specified diseases of gallbladder
== END 2025-01-22 10:13 | disposition home or self-care (01) ==
LOC: HO.HMCC 06:50
PROVIDERS: PCP Nurse Practitioner Family; Visit Provider Nurse Practitioner Family
DX: R82.2 Biliuria (principal); K82.8 Other specified diseases of gallbladder

== ENCOUNTER 2025-02-14 10:41 | Outpatient (AMB) | payer OTHER, SELFPAY ==
--- NOTE | 2025-02-14 11:10 | A.OFFVIS_ITS ---
Intake Visit Reasons: cysto Intake Note: Patient is Present for Cystoscopy Urology Med: Terazosin Antibiotic Allergy: Levofloxacin Blood Thinner:None URO- G Disposable Cystoscope lot:[id number] exp:09/26/2027 Track Announcer Required: No Accompanied by: Self / Same As Patient Allergies levofloxacin (From LEVAQUIN) Allergy (Intermediate, Verified 03/06/25 10:33) cramps morphine (MORPHINE) Allergy (Mild, Verified 03/06/25 10:33) agitation/hallucinations HPI Comments Details: Rafa LINDSEY is a very pleasant male. He is a patient of Dr Sharp. He is seen for the following urologic conditions. - lower urinary tract symptoms Check cysto Has finished trial of terazosin Cystoscopy with grade 2 trabeculation small diverticulum. Discussed prostate procedure. Is doing better with terazosin. At this stage wishes to defer. 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 Laboratory investigations include 06/06 1.6, 06/07 2.3, 08/06 1.3, 08/07 1.6, 04/09 2.3, 10/09 1.8, 04/10 2.1, 11/09 2.3 T 625, 11/10 2.0 Individualized Prostate Cancer Risk Calculator < 5% high risk, Would like to continue with observation and understands and accepts the risks of a possible delay in diagnosis. Overall symptoms are mild. Therapeutic plan will be continued surveillance. [facility] Medical History Elevated liver enzymes Abdominal pain Diverticulitis Fall Physical exam Abnormal hepatitis serology Screening PSA (prostate specific antigen) Encounter for routine adult physical exam with abnormal findings Post covid-19 condition, unspecified GERD (gastroesophageal reflux disease) Elevated cholesterol HTN (hypertension) Pain of cervicothoracic region of spine Cervical stenosis of spinal canal Surgical History Hx of appendectomy History of colonoscopy History of lumbar fusion History of discectomy Family History Father Anxiety Depression Substance use disorder Mother Stroke Asthma Brother Stroke Substance use disorder Brother Liver disease Substance use disorder Daughter Diabetes mellitus Daughter Diabetes mellitus Son Asthma Social History Household Members: Spouse and Children Housing: House Are you a primary sub acute care nurse to a significant other at home: No Do you presently have visiting nurse or other home services: No Alcohol intake: never Patient Tobacco Use Status: Never used Tobacco e-Cigarette/Vaping Use: Never Used Second Hand Smoke Exposure: No service: No Current occupational status: retired Cognitive needs: No Hearing needs: No Vision needs: No Review of Systems Const Denies chills and Denies fever(s) Card Reports no additional complaints and Denies syncope Resp Denies cough GI Denies abdominal pain and Denies heartburn Reports as per HPI and Denies change in libido Neuro Denies syncope Psych Denies change in libido Endo Denies change in libido Physical Exam Const General: cooperative, healthy appearing, comfortable and no acute distress Orientation/consciousness: patient oriented x3 HEENT Face and sinus: Yes normal facial exam Mouth: moist mucous membranes Neck Neck: Yes normal visual inspection, Yes full ROM and Yes trachea midline Chest Chest palpation & inspection: normal inspection of the chest Resp Effort & Inspection: normal respiratory effort, able to speak in complete sent ences and no respiratory distress GI Inspection: Yes normal to inspection Back/Spine/Pelvis Cervical Spine: normal cervical lordosis Thoracic/Lumbar Spine: thoracic and lumbar spine normal to inspection Skin General skin exam: no rashes or lesions noted Neuro General: patient oriented x3, gait normal, tone normal and moves all extremities Extrem General: Yes normal to inspection and Yes capillary refill normal Office Procedures Cystoscopy Consent Discussed risk and benefit or proposed procedure with the patient. Information consent for procedure given to the patient. Discussed technical aspects, risks, benefits and alternatives in full. Addressed all of the patient's questions and concerns regarding the procedure. The patient demonstrated knowledge and understanding. They wish to proceed with this procedure. Preparation The patient was prepped in the usual manner. A circulation crew leader was present and in the room. Genitalia was prepped with betadine solution in a sterile manner. L idocaine Jelly 2% was placed into the urethra and 16Fr flexible Olympus cystoscope was inserted into the meatus after adequate lubrication. Procedure Consent confirmed Genitalia prepped and draped using topical antiseptic and lidocaine jelly Clamp placed on penile glans to allow adequate dwell contact time with anesthetic Cystoscopy performed using a sterile disposable Urovue digital 16 Portuguese cystoscope Meatus circumcised Urethra anterior and posterior urethra normal Prostatic Urethra moderate trilobar hyperplasia Bladder examination with retroflexion of cystoscope Bladder Orifices normal shape and position Bladder Capacity Normal Trabeculations Grade 0 Cellule Formation small Diverticulum Formation None Mucosal Erythema None Bladder Tumor None Patient tolerated procedure [id number] DISPOSABLE SCOPE URO-G FLEXIBLE SCOPE Procedure code (CPT) selection complete Office Meds lidocaine HCl 2 % mucosal jelly in applicator Performing Provider: Benedict Hardy MD Performing Location: [facility] Administered by: Jean Paul Aguirre LPN on 02/14/25 11:27 Dose Route Admin Location Dispensed Lot Number Expiration Date [facility] Manager Mental Health 10 mL intra-urethral 10 mL nitrofurantoin monohydrate/macrocrystals 100 mg capsule Performing Provider: Benedict Hardy MD Performing Location: [facility] Administered by: Jean Paul Aguirre LPN on 02/14/25 11:27 Dose Route Admin Location Dispensed Lot Number Expiration Date [place] Manager Mental Health 100 mg PO 1 cap Results AMB Urinalysis, Automated UA Leukoctes 0 Jack/uL Last Edit by GALEN Collins on 02/14/25 11:25 UA Nitrite Negative Last Edit by Lisandra Hayes [facility] on 02/14/25 11:25 UA Urobilinogen 0.2 mg/dL Last Edit by GALEN Collins on 02/14/25 11:2 5 UA Protein 15 mg/dL Last Edit by Lisandra Hayes [facility] on 02/14/25 11:25 UA pH 6.0 Last Edit by GALEN Collins on 02/14/25 11:25 UA Blood 0 Brando/uL Last Edit by Lisandra Hayes [facility] on 02/14/25 11:25 UA Specific [place] 1.015 Last Edit by KEVIN Collins on 02/14/25 11: 25 UA Ketone Negative Last Edit by Lisandra Hayes [facility] on 02/14/25 11:25 UA Bilirubin 0 mg/dL Last Edit by GALEN Collins on 02/14/25 11:25 UA Glucose 0 mg/dL Last Edit by GALEN Collins on 02/14/25 11:25 Results Reviewed Results Reviewed: Laboratory Last Values Urine pH (Auto) 6.0 02/14/25 11:19 Specific [place] (Auto) 1.015 02/14/25 11:19 Urine Protein (Auto) 15 mg/dL 02/14/25 11:19 Glucose (UA)(Auto) 0 mg/dL 02/14/25 11:19 Urine Ketones (Auto) Negative 02/14/25 11:19 Urine Blood (Auto) 0 Brando/uL 02/14/25 11:19 Urine Nitrite (Auto) Negative 02/14/25 11:19 Urine Bilirubin (Auto) 0 mg/dL 02/14/25 11:19 Urine Urobilinogen (Auto) 0.2 mg/dL 02/14/25 11:19 Leukocyte Esterase (Auto) 0 Jack/uL 02/14/25 11:19 Assessment & Plan Assessment & Plan (1) Bladder outlet obstruction: Code(s): N32.0 - Bladder-neck obstruction Category: Medical (2) Weak urinary stream: Code(s): R39.12 - Poor urinary stream Category: Medical Plan Offered GreenLight laser Six-month follow-up check PVR Orders: Orders AMB Urinalysis Automated 02/14/25 Z13.9 - Encounter for screening, unspecified AMB Cystoscopy 02/14/25 N32.0 - Bladder-neck obstruction, R39.12 - Poor urinary stream Medications: Changed From terazosin 5 mg PO BEDTIME 30 days 30 caps 2RF R39.12 - Poor urinary stream To terazosin 5 mg PO BEDTIME 90 caps 1RF 90 days R39.12 - Poor urinary stream Patient Instructions: This note is constructed using voice recognition software. While every effort has been made to ensure accuracy photo mask pattern generator errors may have been included. Imaging studies, laboratory and physical exam results were discussed and reviewed in detail. No major barriers to patient understanding were identified. An opportunity to ask questions regarding the treatment plan was provided. All questions were answered. The patient expressed understanding and agreement with the above treatment plan. The patient is aware they should contact our office by phone for worsening of their current condition or the appearance of new urologic symptoms. Compliance is encouraged with any medications and followup testing that is ordered. It is a privilege to participate in the urologic care of your patient. If you have any questions or concerns regarding treatment for the above conditions, or other urologic issues, please do not hesitate to contact me. The office telephone contact is [phone]. Sincerely, Dr Benedict Hardy MD, [facility] - Urology Compassionate Specialist Care for the Genitourinary System Coding Level of Care Code Est Pt Level 3 (16468) Add On Problem Visit Only Diagnoses Bladder outlet obstruction N32.0 Weak urinary stream R39.12 CPT Codes Cystoscopy - CPT: [id number] ([id number])
--- OUTSIDE RECORDS SUMMARY | 2025-02-14 13:22 | XMS_ITS | Clinical Summary ---
Author Organization [facility] Address [address] [place] [address] Phone Care Team Providers Care [employer] Worker Name Role Phone Jelani Padron NP Primary [...] topic Medical Devices Not on file Insurance [employer] Member Subscriber Plan / Payer (Ef fective 2019-Present) Name:Rafa Finch Relation to Subscriber:Spouse Name:LISSETTE FINCH Date of :1960 Address: [address] [place] [id number] Payer ID:[id number] (NAIC) Type:PPO Address: [place] [id number] [employer] Member Subscriber Plan / Payer (Ef fective 2019-Present) Name:Rafa Finch Relation to Subscriber:Spouse Name:LISSETTE FINCH Date of :1960 Address: [address] [place] [id number] Payer ID:[id number] (NAIC) Type:PPO Address: [place] [id number] [employer] BENEFITS ADMINISTRATORS [employer] BENEFITS ADMINISTRATORS Care Teams [employer] Worker Relationship Specialty Start Date End Date Jelani Padron NP [address] [place] [id number] PCP - General Nurse Practitioner 10/16/22 Additional Source Comments The information contained in this document represents components of the legal health record. It is not the complete legal health record.[facility]
== END 2025-02-14 12:09 | disposition home or self-care (01) ==
LOC: HO.HUSH 10:42
PROVIDERS: PCP Nurse Practitioner Family; Visit Provider Urology
DX: N32.0 Bladder-neck obstruction (principal); R39.12 Poor urinary stream
CPT/HCPCS: 52000; 99213

== ENCOUNTER 2025-02-14 10:41 | Outpatient (REF) | payer OTHER, SELFPAY ==
[2025-02-14 12:13] LABS: MANUAL DIFF FLAG NO
[2025-02-14 12:28] LABS: Hematocrit 41.8 % (42.0-52.0); Hemoglobin 14.4 g/dl (14.0-18.0); Imm Gran Abs Auto 0.01 X10*3/uL (0.00-0.03); Imm Gran Pct Auto 0.2 % (0.0-0.4); Lymphocytes Absolute Auto 1.3 X10*3/uL (1.2-4.9); Mean Corpuscular HGB Conc 34.4 g/dl (31.0-36.0); Mean Corpuscular Hemoglobin 30.4 pg (27.0-33.0); Mean Corpuscular Volume 88.2 fL (80.0-98.0); NRBC Abs Auto 0.000 X10*3/uL (0.0-0.012); NRBC Pct Auto 0.0 /100WBC (0.0-0.2); Platelet Count 163 X10*3/uL (160-400); Red Blood Count 4.74 X10*6/uL (4.60-5.80); White Blood Count 4.3 X10*3/uL (4.8-10.8)
[2025-02-14 12:58] LABS: Appearance Urine Clear; Glucose Urine UA Negative (Negative); PH 6.5 (5.0-9.0); Specific Gravity - Urine 1.010 (1.005-1.025); UMIC TRIGGER UA YES
[2025-02-14 13:02] LABS: Alanine Aminotransferase 22 U/L (0-40); Albumin Level 4.6 g/dL (3.5-5.0); Alkaline Phosphatase 64 U/L (39-117); Anion Gap 11 (12-20); Aspartate Amino Transferase 29 U/L (5-37); Blood Urea Nitrogen 16 mg/dL (9-16); Calcium 9.3 mg/dL (8.4-10.2); Carbon Dioxide 25 mmol/L (22-29); Chloride 105 mmol/L (96-108); Estimated Glomerular Filt Rate > 60; Potassium 4.4 mmol/L (3.3-5.1); Sodium 137 mmol/L (135-145); Total Protein 7.0 g/dL (6.5-8.0)
== END 2025-02-14 10:42 | disposition home or self-care (01) ==
LOC: HO.LAB 10:41
PROVIDERS: Absent Provider Nurse Practitioner Family; PCP Nurse Practitioner Family; Visit Provider Urology
DX: N32.0 Bladder-neck obstruction (principal); R39.12 Poor urinary stream; R82.2 Biliuria; K76.0 Fatty (change of) liver, not elsewhere classified; K82.8 Other specified diseases of gallbladder
CPT/HCPCS: 36415; 52000; 80053; 81001; 81003; 85025; 87086; 88112

== ENCOUNTER 2025-02-26 12:58 | Outpatient (REF) | payer OTHER, SELFPAY ==
--- NOTE | ~2025-02-26 | XR_ITS ---
EXAMINATION: XR LUMBOSACRAL SPINE CLINICAL INFORMATION: M54.50 - Low back pain, unspecified COMPARISON: December 28, 2023 TECHNIQUE: AP and lateral views FINDINGS: Multilevel marginal osteophyte formation and syndesmophyte formation and endplate sclerosis subchondral cyst formation and decreased intervertebral disc height throughout the axial skeleton pronounced at L5-S1, L3-4 T12-L1 and L2-3. No acute cortical disruption or gross malalignment. Bilateral facet joint hypertrophy. Osteopenia versus osteoporosis. Vascular calcifications. Vascular clips right hemiabdomen. Sclerosis and the sacroiliac joints pronounced on the left side. Spina bifida occulta S1, congenital. XR/XR lumbar spine 2-3V IMPRESSION: Multilevel lumbar spondylosis without acute fracture or listhesis. Electronically signed by: Saad Hawkins MD 02/26/2025 03:04 PM KIM CONWAY
== END 2025-02-26 12:59 | disposition home or self-care (01) ==
LOC: HO.HMGCX 12:58
PROVIDERS: PCP Nurse Practitioner Family; Visit Provider Physician Assistant Medical
DX: M54.50 Low back pain, unspecified (principal); Z13.89 Encounter for screening for other disorder
CPT/HCPCS: 72100; 81003

== ENCOUNTER 2025-02-26 12:58 | Outpatient (AMB) | payer OTHER, SELFPAY ==
--- NOTE | 2025-02-26 13:03 | AM.OFFWIN_ITS ---
Intake Vital Signs 02/26/25 13:05 Height 6 ft 2 in Weight 230 lb BMI 29.5 BP 128/80 Blood Pressure Location Lt brachial Position Sitting Pulse 86 Pulse Source Pulse Oximeter Temp 97.8 F Temp Source Oral Pulse Oximetry (%) 98 Oxygen Delivery Method Room Air Intake Visit Reasons: ep severe lower back pain Intake Note: Patient presents with c/o low back pain that started this morning & radiates across right and left side- legs feel weak. Patient Tobacco Use Status: Never used Tobacco Allergies levofloxacin (From LEVAQUIN) Allergy (Intermediate, Verified 02/26/25 13:09) cramps morphine (MORPHINE) Allergy (Mild, Verified 02/26/25 13:09) agitation/hallucinations Do you need a note to return to daycare/school/sports/work: No HPI HPI Comments History of Present Illness Details History - The patient is a 64-year-old male pres enting with acute lower back pain. - The pain began suddenly this morning w ithout any significant inciting event. - The patient engaged in light yard work over the weekend but did not perform any heavy lifting. - The pain is constant, sharp, and inten se upon standing, causing weakness in the legs. - The patient reports diarrhea for the p ast five days. - There is a history of hematuria, with traces of blood noted in a previous urin e test. - The patient experiences numbness in th e buttocks after prolonged sitting. 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 - He denies trauma or falls. - He denies saddle anesthesia, numbness, tingling, or incontinence. - He denies dysuria or hematuria. Physical Exam General: cooperative, healthy appearing, uncomfortable, patient oriented x3 Head: Normal to inspection, normocephalic/atraumatic Effort & Inspection: Normal respiratory effort and able to speak in complete sentences. Cardiac: RRR, no M/R/G noted. Normal S1 and S2. Respiratory: Clear to auscultation bilaterally. No w/r/r noted. Back/spine: No CVA tenderness bilaterally. Cervical, thoracic and lumbar spine normal to inspection. Cervical ROM normal, no midline spinous tenderness noted. Decrease ROM, flexion and extension due to pain. No midline vertebral spinous tenderness noted. No step offs noted. No TTP of the thoracic paraspinous or paravertebral muscles. TTP of the paraspinous or paravertebral muscles bilaterally. No SI joint tenderness noted. DTR are 2+ on the lower extremities noted. Ambulates with a slow steady gait. Extremities: Unable to perform SL test due to pain; motor strength normal 5/5 bilaterally. Neuro: Sensation intact. Patient was informed and verbally consented to the use of an ambient scribe for clinic note documentation during this visit. [facility] Medical History Elevated liver enzymes Abdominal pain Diverticulitis Fall Physical exam Abnormal hepatitis serology Screening PSA (prostate specific antigen) Encounter for routine adult physical exam with abnormal findings Post covid-19 condition, unspecified GERD (gastroesophageal reflux disease) Elevated cholesterol HTN (hypertension) Pain of cervicothoracic region of spine Cervical stenosis of spinal canal Surgical History Hx of appendectomy History of colonoscopy History of lumbar fusion History of discectomy Family History Father Anxiety Depression Substance use disorder Mother Stroke Asthma Brother Stroke Substance use disorder Brother Liver disease Substance use disorder Daughter Diabetes mellitus Daughter Diabetes mellitus Son Asthma Social History Household Members: Spouse and Children Housing: House Are you a primary home care administrator to a significant other at home: No Do you presently have visiting nurse or other home services: No Alcohol intake: never Patient Tobacco Use Status: Never used Tobacco e-Cigarette/Vaping Use: Never Used Second Hand Smoke Exposure: No service: No Current occupational status: retired Cognitive needs: No Hearing needs: No Vision needs: No Review of Systems Const All systems reviewed & are unremarkable except as noted in HPI and below Physical Exam Vital Signs: Last Vital Signs Temp 97.8 F 02/26/25 13:05 Pulse 86 02/26/25 13:05 BP 128/80 02/26/25 13:05 Pulse Ox 98 02/26/25 13:05 Oxygen Delivery Method Room Air 02/26/25 13:05 BMI result Body Mass Index 29.5 Results AMB Urinalysis, Automated UA Leukoctes 0 Jack/uL Last Edit by Yaa Hercules, ADAPTIVE PHYSICAL EDUCATOR on 02/26/25 13:24 UA Nitrite Negative Last Edit by Yaa Hercules, ADAPTIVE PHYSICAL EDUCATOR on 02/26/25 13:24 UA Urobilinogen 0.2 mg/dL Last Edit by Yaa Hercules, ADAPTIVE PHYSICAL EDUCATOR on 02/26/25 13: 24 UA Protein 0 mg/dL Last Edit by Yaa Hercules, ADAPTIVE PHYSICAL EDUCATOR on 02/26/25 13:24 UA pH 7.0 Last Edit by Yaa Hercules, ADAPTIVE PHYSICAL EDUCATOR on 02/26/25 13:24 UA Blood 0 Brando/uL Last Edit by Yaa Hercules, ADAPTIVE PHYSICAL EDUCATOR on 02/26/25 13:24 UA Specific [place] 1.015 Last Edit by Yaa Hercules, ADAPTIVE PHYSICAL EDUCATOR on 02/26/25 13 :24 UA Ketone Negative Last Edit by Yaa Hercules, ADAPTIVE PHYSICAL EDUCATOR on 02/26/25 13:24 UA Bilirubin 0 mg/dL Last Edit by Yaa Hercules, ADAPTIVE PHYSICAL EDUCATOR on 02/26/25 13:24 UA Glucose 0 mg/dL Last Edit by Yaa Hercules, ADAPTIVE PHYSICAL EDUCATOR on 02/26/25 13:24 Results Reviewed Results Reviewed: Laboratory Last Values Urine pH (Auto) 7.0 02/26/25 13:23 Specific [place] (Auto) 1.015 02/26/25 13:23 Urine Protein (Auto) 0 mg/dL 02/26/25 13:23 Glucose (UA)(Auto) 0 mg/dL 02/26/25 13:23 Urine Ketones (Auto) Negative 02/26/25 13:23 Urine Blood (Auto) 0 Brando/uL 02/26/25 13:23 Urine Nitrite (Auto) Negative 02/26/25 13:23 Urine Bilirubin (Auto) 0 mg/dL 02/26/25 13:23 Urine Urobilinogen (Auto) 0.2 mg/dL 02/26/25 13:23 Leukocyte Esterase (Auto) 0 Jack/uL 02/26/25 13:23 will review his xray in the office Assessment & Plan Assessment & Plan (1) Back pain: Code(s): M54.9 - Dorsalgia, unspecified Qualifiers: Back pain location: low back pain Chronicity: acute Back pain laterality: bilateral Sciatica presence: without sciatica Qualified Code(s): M54.50 - Low back pain, unspecified Plan Most likely back pain from a strain UA in the office was negative Plan - rest, heat to the back - activities as tolerated. - Prescribe muscle relaxants and prednisone for pain management. - Order an x-ray to evaluate the lower back condition. - Arrange for physical therapy to aid in rehabilitation. - Utilize collected urine sample for further analysis to investigate hematuria from his PCP. - follow up with PCP Orders: Orders XR lumbar spine 2-3V Today Germania Burr PA-C M54.50 - Low back pain, unspecified PT Evaluation and Treatment Today Germania Burr PA-C M54.9 - Dorsalgia, unspecified AMB Urinalysis Automated Today Michela Rey NP Z13.9 - Encounter for screening, unspecified Medications: New cyclobenzaprine 5 mg PO Q8H PRN 20 tabs 0RF Muscle Spasm Germania Burr PA-C prednisone 40 mg (2 x 20 mg) PO DAILY 10 tabs 0RF 5 days Germania Burr PA-C naproxen 500 mg PO Q12H PRN 20 tabs 0RF pain 7 days Germania Burr PA-C Coding Level of Care Code Est Pt Level 4 (37254) Diagnoses Acute bilateral low back pain without sciatica M54.50 Back pain location: low back pain Chronicity: acute Back pain laterality: bilateral Sciatica presence: without sciatica
[2025-02-26 13:05] VITALS: BP 128/80; PULSE 86; TEMP 36.6; O2SAT 98; BMI 29.5
--- OUTSIDE RECORDS SUMMARY | 2025-02-26 15:04 | XMS_ITS | Clinical Summary ---
Author Organization [facility] Address [address] [place] [address] Phone Care Team Providers Care Supervisor Pastry Name Role Phone Jelani Padron NP Primary [...] on patient's age to complete this topic IPV VACCINES Aged Out No longer eligi ble based on patient's age to complete this topic MENINGOCOCCAL VACCINES (ACWY) Aged Out No longer eligible based on patient's age to complete this topic MENINGOCOCCAL VACCINES (B) Aged Out N o longer eligible based on patient's age to complete this topic Medical Devices Not on file Insurance [employer]AT[employer] Member Subscriber Plan / Payer (Ef fective 2019-Present) Name:Rafa Finch Relation to Subscriber:Spouse Name:LISSETTE FINCH Date of :1960 Address: [address] [place] [address] Payer ID:[id number] (NAIC) Type:PPO Address: [place] [phone] [employer]AT[employer] Member Subscriber Plan / Payer (Ef fective 2019-Present) Name:Rafa Finch Relation to Subscriber:Spouse Name:LISSETTE FINCH Date of :1960 Address: [address] [place] [address] Payer ID:[id number] (NAIC) Type:PPO Address: [place] [phone] [employer] BENEFITS ADMINISTRATORS [facility] [place] [address] [employer] [facility] [place] [id number] [employer] Care Teams Supervisor Pastry Relationship Specialty Start Date End Date Jelani Padron NP [address] [place] [id number] PCP - General Nurse Practitioner 10/16/22 Additional Source Comments The information contained in this document represents components of the legal health record. It is not the complete legal health record.[facility]
== END 2025-02-26 14:20 | disposition home or self-care (01) ==
PROVIDERS: PCP Nurse Practitioner Family; Visit Provider Physician Assistant Medical
DX: Z13.9 Encounter for screening, unspecified (principal); M54.50 Low back pain, unspecified

== ENCOUNTER 2025-02-26 14:18 | Outpatient (REF) | payer OTHER, SELFPAY ==
[2025-02-26 16:45] LABS: Appearance Urine Clear; Glucose Urine UA Negative (Negative); PH 7.5 (5.0-9.0); Specific Gravity - Urine 1.020 (1.005-1.025)
== END 2025-02-26 14:19 | disposition home or self-care (01) ==
LOC: HO.LAB 14:18
PROVIDERS: Visit Provider Nurse Practitioner Family
DX: Z13.89 Encounter for screening for other disorder (principal); R31.29 Other microscopic hematuria
CPT/HCPCS: 81003; 87086; 88112

== ENCOUNTER → 2025-02-26 14:30 | Outpatient (BNV) | payer OTHER, SELFPAY | PROVIDERS: PCP Nurse Practitioner Family; Visit Provider Radiology Diagnostic Radiology | DX: M47.816 Spondylosis without myelopathy or radiculopathy, lumbar region (principal) | CPT/HCPCS: 72100 ==

== ENCOUNTER 2025-03-06 10:21 | Outpatient (AMB) | payer OTHER, SELFPAY ==
--- NOTE | 2025-03-06 10:23 | A.OFFVIS_ITS ---
Vital Signs 03/06/25 10:24 Height 6 ft 2 in Weight 227 lb BMI 29.1 BP 135/81 Blood Pressure Location Lt brachial Position Sitting Pulse 90 Intake Visit Reasons: GERD, IBS Intake Note: Rafa presents to in office follow up of GERD and IBS. CC: Patient states that he was having mid back pain and about 14 days ago his lower back started hurting as well. He was placed on Prednisone for 5 days and the pain went away. He was having diarrhea for 5 days straight before back pain started and now he reports constipation for a few days and then soft stools. He was told that blood was found in his urine and he is seeing Dr. Hardy for his kidneys so he is not sure if the back pain is related to his kidneys. Lower back and mid back pain is starting to coming back per patient. Stools are loose like a mixed oliver color and they don't come out whole , and sometimes come out thinner than normal. He also reports some days feeling like he has no energy. He was told also by Dr. Hardy that he has some scarring in his bladder. Supervisor Type Bar And Segment Required: No Accompanied by: Self / Same As Patient Allergies levofloxacin (From LEVAQUIN) Allergy (Intermediate, Verified 03/06/25 10:33) cramps morphine (MORPHINE) Allergy (Mild, Verified 03/06/25 10:33) agitation/hallucinations Medication List - Last Reconciled 03/06/25 by NIKITA Morris amlodipine 5 mg PO DAILY atorvastatin 10 mg PO BEDTIME cyclobenzaprine 5 mg PO Q8H PRN duloxetine 60 mg PO DAILY famotidine 40 mg PO BEDTIME gabapentin 100 mg PO BEDTIME lorazepam 0.5 mg PO BID PRN 30 days multivitamin 1 tab PO DAILY nabumetone 500 mg PO BID 30 days psyllium husk (Fiber (psyllium husk)) 0.8 grams PO BID tamsulosin 0.4 mg PO BEDTIME terazosin 5 mg PO BEDTIME 90 days trazodone 100 mg PO BEDTIME 30 days HPI HPI GERD, IBS: Details: Assessment & Plan (1) Irritable bowel syndrome with diarrhea: Code(s): K58.0 - Irritable bowel syndrome with diarrhea Category: Medical (2) GERD (gastroesophageal reflux disease): Code(s): K21.9 - Gastro-esophageal reflux disease without esophagitis Category: Medical Plan He continues on his omeprazole with good control of his GERD. He again started taking the bentyl bid because he was having borborygmus, and it helped. The only new medication is Flomax because he was having some slowing of the urinary stream, and this worked well. ROV 6 mos. Medications: New dicyclomine 20 mg PO TID 90 tabs 6RF K58.0 - Irritable bowel syndrome with diarrhea Refilled omeprazole 20 mg PO DAILY 90 caps 1RF TODAY'S VISIT [facility] Medical History Elevated liver enzymes Abdominal pain Diverticulitis Fall Physical exam Abnormal hepatitis serology Screening PSA (prostate specific antigen) Encounter for routine adult physical exam with abnormal findings Post covid-19 condition, unspecified GERD (gastroesophageal reflux disease) Elevated cholesterol HTN (hypertension) Pain of cervicothoracic region of spine Cervical stenosis of spinal canal Surgical History Hx of appendectomy History of colonoscopy History of lumbar fusion History of discectomy Family History Father Anxiety Depression Substance use disorder Mother Stroke Asthma Brother Stroke Substance use disorder Brother Liver disease Substance use disorder Daughter Diabetes mellitus Daughter Diabetes mellitus Son Asthma Social History Household Members: Spouse and Children Housing: House Are you a primary manager wound care to a significant other at home: No Do you presently have visiting nurse or other home services: No Alcohol intake: never Patient Tobacco Use Status: Never used Tobacco e-Cigarette/Vaping Use: Never Used Second Hand Smoke Exposure: No service: No Current occupational status: retired Cognitive needs: No Hearing needs: No Vision needs: No Review of Systems Const Denies fatigue, Denies fever(s), Denies night sweats, Denies poor appetite and Denies weight loss ENT Reports Normal hearing present, Denies dental pain, Denies dysphagia, Denies hearing loss, Denies mouth pain, Denies odynophagia, Denies throat swelling, Denies tongue swelling and Reports other (Dentition adequate) Card Reports no additional complaints Resp Reports no additional complaints GI Details: Denies abdominal pain, Denies melena, Denies bloating, Denies hematochezia, Reports constipation, Denies GI cramping, Denies dysphagia, Denies excessive flatus, Denies early satiety, Reports heartburn, Denies diarrhea, Reports loose stools, Denies nausea, Denies odynophagia, Denies vomiting and Denies hematemesis Reports hematuria Musc Reports back pain and Reports myalgias Skin/Breast Denies pruritus, Denies lesions, Denies rash and Denies jaundice Neuro Reports Normal hearing present, Denies Abnormal speech present and Reports memory loss Psych Reports memory loss Endo Denies fatigue Aller/Immun Denies throat swelling and Denies tongue swelling Physical Exam Vital Signs: BMI result Body Mass Index 29.1 Const General: cooperative, no acute distress, well developed and well groomed Nutritional Appearance: well nourished and obese Orientation/consciousness: oriented to person, oriented to place and oriented to time Limitations: No language barrier HEENT Head: Yes normocephalic and Yes atraumatic Eyes General: appearance normal, both eyes and all related structures Pupils: Equal, round and reactive pupils present Neck Neck: Yes normal visual inspection and Yes no lymphadenopathy Thyroid: Thyroid normal Resp Effort & Inspection: normal respiratory effort and able to speak in complete sentences Auscultation: clear to auscultation bilaterally Cardio Rate: regular rate Rhythm: regular rhythm Heart sounds: Normal, physiologic split S2 sound present Peripheral pulses: radial pulses present and posterior tibial pulses present GI Inspection: No distended, No Abdominal panniculus present and Yes obesity Palpation (GI): Soft to palpation, nontender, no guarding, not rigid and Hepatosplenomegaly present Percussion: Yes normal to percussion Auscultation: normal bowel sounds Rectal Exam - Male: Yes deferred Skin General skin exam: no rashes or lesions noted, turgor normal, skin not dry, no jaundice, No spider nevi and no striae Rashes: no rashes Nails: normal Neuro General: oriented to person, oriented to place and oriented to time Cranial nerves: Yes Equal, round and reactive pupils present and Yes Normal hearing present Speech: No Abnormal speech present Extrem General: Yes normal to inspection, No clubbing, No cyanosis and No edema Psych Appearance: grossly normal and well kempt Mental Status: mental status grossly normal Speech and movement: Normal speech and movement present Affect: normal affect Attitude: cooperative Thought process: Normal thought process present and not confabulating Thought content: Normal thought content present Insight: Fair insight present (Psych) and Limited insight present (Psych) Judgement: Fair judgement present (Psych) and Limited judgement present (Psych) Results Reviewed Results Reviewed: Ultrasound of the abdomen 12/11/2024 Dense increased echotexture throughout the liver without focal lesion or intrahepatic biliary ductal dilatation. Common bile duct is within normal limits. Small rounded echogenic foci are seen along the gallbladder wall measuring between 2 and 6 mm in size. These may be related to small stones are adherent sludge balls. No gallbladder wall thickening or pericholecystic fluid. Negative sonographic Shell's sign. Pancreas can not be visualized due to overlying bowel gas. Spleen is unremarkable. Right kidney measures 11.3 cm in long axis. There is a 2.2 x 1.9 x 2.3 cm cyst within the right kidney. No hydronephrosis. Left kidney measures 12.6 cm in long axis. Lower pole left renal cyst measures 2.6 x 2.3 cm in size. Small associated peripheral calcifications. No hydronephrosis. Aorta and inferior vena cava are patent. No free fluid. Impression: 1. Dense increased hepatic echotexture, likely related to fatty infiltration. 2. Intrauterine stones or sludge balls within the gallbladder without ultrasound findings of cholecystitis. 3. Bilateral renal cysts. Laboratory Tests 10/16/24 10/18/24 02/14/25 11:05 12:48 12:07 WBC Hgb Hct MCV MCH Plt Count Estimated GFR Total Bilirubin AST ALT Alkaline Phosphatase Urine Blood Negative Negative Moderate (2+) H 02/14/25 02/26/25 12:11 12:58 WBC 4.3 L Hgb 14.4 Hct 41.8 L MCV 88.2 MCH 30.4 Plt Count 163 Estimated GFR > 60 Total Bilirubin 0.5 AST 29 ALT 22 Alkaline Phosphatase 64 Urine Blood Negative Assessment & Plan Assessment & Plan (1) GERD (gastroesophageal reflux disease): Code(s): K21.9 - Gastro-esophageal reflux disease without esophagitis Category: Medical (2) Irritable bowel syndrome with diarrhea: Code(s): K58.0 - Irritable bowel syndrome with diarrhea Category: Medical (3) Fatty liver: Code(s): K76.0 - Fatty (change of) liver, not elsewhere classified Category: Medical (4) Gallbladder sludge: Code(s): K82.8 - Other specified diseases of gallbladder Category: Medical (5) Memory loss: Code(s): R41.3 - Other amnesia Category: Medical Plan Subjective Patient presents to discuss several issues including known fatty liver, recent findings of gallbladder sludge on ultrasound (performed in November), alternating bowel habits, and recent back pain. He reports a long-standing history of irritable bowel symptoms. Over the past several weeks he had five consecutive days of diarrhea followed by several days of constipation requiring straining, with ongoing bowel urgency and abdominal rumbling. He developed upper back pain (bilateral parathoracic region) followed by acute lower back pain that made it difficult to rise from a chair; symptoms improved and resolved after a short course of prednisone prescribed at a walk-in clinic. He denies using additional ibuprofen given he takes nabumetone. He previously used a ?little blue pill? (dicyclomine) but is no longer taking it. Omeprazole was changed to famotidine and heartburn has been well controlled. He expresses concern about fatty liver and inquires about herbal ?liver cleanse? teas; he has cut out soda and does not drink alcohol regularly (rare social drink only). He notes prior urinalyses with blood prompting urology evaluation; he was told his bladder is scarred and may need it ?zipped.? He was told recent labs might have been contaminated; he has been informed of low white blood cells and is worried about ?T-cells.? He also reports memory concerns and previously stopped several medications around a COVID illness, then restarted them individually. Relevant Past Medical, Social, and Family History - History of irritable bowel symptoms. - Nonalcoholic fatty liver disease; brother had alcohol-related liver disease and . - Rare alcohol use; actively reducing sugar/soda intake. Objective - November abdominal ultrasound: gallbladder sludge reported. - Liver transaminases normal. - January urinalysis: moderate red blood cells present. - Mild leukopenia noted. Assessment & Plan Irritable bowel symptoms with alternating diarrhea and constipation: Pattern consistent with IBS. Symptoms may have fluctuated after stopping dicyclomine. - Start daily fiber supplementation as a bowel regulator; options include OTC fiber capsules or powders (e.g., Benefiber or Citrucel if mixing). Suggested dosin?2 capsules twice daily to start, then titrate to effect; store-brand equivalents acceptable. - Avoid dicyclomine given anticholinergic burden and memory concerns. - Return sooner if worsening pain, GI bleeding, persistent constipation >3?4 days, or persistent diarrhea >1 week. Acute on chronic back pain, resolved: Likely musculoskeletal/inflammatory; improved after short prednisone course. - No additional intervention today. Continue current analgesic strategy as tolerated. Report recurrence, red flags (neurologic deficits, fever, bowel/bladder dysfunction), or persistent severe pain. Nonalcoholic fatty liver disease: Transaminases are normal. Reviewed natural history and risk reduction. - Lifestyle counseling: maintain healthy weight, control blood sugars if diabetic, avoid daily alcohol (rare social use acceptable). - No evidence-based role for ?liver cleanse? teas; discussed that some supplements (e.g., milk thistle, SAMe) have limited data and may be costly; bring specific product names if considering for review. - Continue routine monitoring of liver enzymes. Microscopic hematuria: UA in January with moderate RBCs; prior UAs without blood. Under urology care; patient reports bladder scarring and possible procedure planned. - Continue with urology evaluation and management. Monitor for UTI symptoms, flank pain, or gross hematuria. Mild leukopenia: Noted on recent labs; no associated alarming findings communicated today. - Monitor with periodic CBC per routine. No specific intervention at this time. GERD/heartburn: Controlled on famotidine. - Continue famotidine. - Remove omeprazole and dicyclomine from active medication list. Medication safety and memory concerns: - Counseled to avoid abrupt discontinuation of chronic medications when possible; contact me before making changes to minimize withdrawal/relapse effects. Administrative/Pharmacy: - Pharmacy updated to [facility], [address] [place] [address]. Famotidine to be directed there. Follow-up: - Routine follow-up in 6 months, sooner if fiber regimen is ineffective or if new/worsening symptoms occur. Medications: Refilled famotidine 40 mg PO BEDTIME 180 tabs 1RF Coding Level of Care Code Est Pt Level 4 (76606) Diagnoses GERD (gastroesophageal reflux disease) K21.9 Irritable bowel syndrome with diarrhea K58.0 Fatty liver K76.0 Gallbladder sludge K82.8 Memory loss R41.3 Time Spent (min) 33
[2025-03-06 10:24] VITALS: BP 135/81; PULSE 90; BMI 29.1
== END 2025-03-06 11:13 | disposition home or self-care (01) ==
LOC: HO.HGI 10:22
PROVIDERS: PCP Nurse Practitioner Family; Visit Provider Nurse Practitioner
DX: K21.9 Gastro-esophageal reflux disease without esophagitis (principal); K58.0 Irritable bowel syndrome with diarrhea; K76.0 Fatty (change of) liver, not elsewhere classified; K82.8 Other specified diseases of gallbladder; R41.3 Other amnesia
CPT/HCPCS: 99214

== ENCOUNTER 2025-04-06 11:02 | Outpatient (REF) | payer OTHER, SELFPAY ==
[2025-04-06 12:19] LABS: Appearance Urine Clear; Glucose Urine UA Negative (Negative); PH 5.0 (5.0-9.0); Specific Gravity - Urine >= 1.030 (1.005-1.025); UMIC TRIGGER UACC YES
--- OUTSIDE RECORDS SUMMARY | 2025-04-06 12:59 | XMS_ITS | Clinical Summary ---
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 Name Role Phone Jelani Padron NP Primary [...] topic Medical Devices Not on file Insurance [employer] Member Subscriber Plan / Payer (Ef fective 2019-Present) Name:Raaf Finch Relation to Subscriber:Spouse Name:LISSETTE FINCH Date of :1960 Address: [address] [place] [id number] Payer ID:[id number] (NAIC) Type:PPO Address: [place] [phone] [employer] Member Subscriber Plan / Payer (Ef fective 2019-Present) Name:Rafa Finch Relation to Subscriber:Spouse Name:LISSETTE FINCH Date of :1961 Address: [address] [place] [id number] Payer ID:[id number] (NAIC) Type:PPO Address: [place] [phone] [employer] BENEFITS ADMINISTRATORS [employer] Care Teams Dressing Machine Operator Relationship Specialty Start Date End Date Jelani Padron NP [address] [place] [address] PCP - General Nurse Practitioner 10/16/22 Additional Source Comments The information contained in this document represents components of the legal health record. It is not the complete legal health record.[facility]
== END 2025-04-06 11:03 | disposition home or self-care (01) ==
LOC: HO.LAB 11:02
PROVIDERS: PCP Nurse Practitioner Family; Visit Provider Urology
DX: R31.29 Other microscopic hematuria (principal)
CPT/HCPCS: 81001; 88112